=== PATIENT | female | born 2000 | race African-American/Black ===

== ENCOUNTER 2022-06-23 00:57 | Emergency (ER) | payer BC, MEDICAID, SELFPAY ==
--- NOTE | ~2022-06-23 | XR_ITS ---
EXAMINATION: XR chest 1V portable 06/23/2022 01:18 INDICATION: Chest pain. . Shortness of breath. PROCEDURE: AP portable chest COMPARISON: 05/29/2005 FINDINGS: The lungs are clear. The cardiomediastinal silhouette is within normal limits. There are no pleural effusions. There is no pneumothorax suspected. IMPRESSION: 1: NO ACUTE CARDIOPULMONARY DISEASE. Reviewed, dictated and finalized at location A. MACY TECHNICIAN INSTRUCTOR
[2022-06-23 00:56] VITALS: BP 161/105; PULSE 96; RESP 17; TEMP 37; O2SAT 100
--- NOTE | 2022-06-23 01:03 | ECG_ITS ---
Measurements Intervals [place] Rate: 82 P: 51 NE: 141 QRS: 55 QRSD: 89 T: 36 QT: 354 QTc: 416 Interpretive Statements SINUS RHYTHM WITH SINUS ARRHYTHMIA NO PREVIOUS ECG AVAILABLE FOR COMPARISON Electronically Signed On 06-24-2022 11:09:43 WEBBING SUPERVISOR by Tushar Salgado M.D.
[2022-06-23 01:08] VITALS: O2SAT 99
--- NOTE | 2022-06-23 01:10 | ED.GENADULT ---
HPI - General Adult General Chief complaint: Anxiety Stated complaint: ANXIETY Time Seen by Provider: 06/23/22 01:03 History of Present Illness HPI narrative: This is a 21-year-old female who is presenting to ED with a possible panic attack. Patient was at her job earlier today when she started to have feelings of intense anxiety, shortness of breath and substernal chest pain. Patient had preeclampsia during her last and had a emergent due to that. Patient describes the pain as a substernal heaviness that is nonradiating, 10 10 in intensity and constant. She has felt this before. She says it is worse when she takes deep breaths and improves by relaxing. She denies diaphoresis vomiting or exertional component. Related Data Allergies Allergy/AdvReac Type Severity Reaction Status Date / Time No Known Allergies Allergy Verified 06/23/22 01:22 Review of Systems Review of Systems: CONSTITUTIONAL: Denies night sweats. EYES: No eye pain ENT: Denies rhinorrhea CARDIOVASCULAR: Denies palpitations RESPIRATORY: Denies hemoptysis GASTROINTESTINAL: Denies hematemesis GENITOURINARY: Denies hematuria. SKIN: Denies rash MUSCULOSKELETAL: Denies myalgia. NEUROLOGIC: Denies weakness. PSYCHIATRIC: Denies delusions Exam Narrative: APPEARANCE: Appears anxious Head: atraumatic. EYES: EOMI, NOSE: Atraumatic NECK: Trachea midline RESPIRATORY: increased rate of breathing, clear lung sounds CARDIOVASCULAR: RRR, no peripheral edema ABDOMINAL: Non-distended, nontender no guarding or rebound MUSCULOSKELETAl: No obvious deformities NEURO: Alert. Moving 4/4 extremities SKIN:: Warm, dry. Normal color PSYCHIATRIC: Normal affect Course Vital Signs Vital signs: Vital Signs Temperature 98.6 F 06/23/22 00:56 Pulse Rate 96 06/23/22 00:56 Respiratory Rate 17 06/23/22 00:56 Blood Pressure 161/105 H 06/23/22 00:56 Pulse Oximetry 100 06/23/22 00:56 Oxygen Delivery Room Air 06/23/22 00:56 Temperature 98.6 F 06/23/22 00:56 Pulse Rate 96 06/23/22 00:56 Respiratory Rate 17 06/23/22 00:56 Blood Pressure 161/105 H 06/23/22 00:56 Pulse Oximetry 99 06/23/22 01:08 Oxygen Delivery Room Air 06/23/22 01:08 Medical Decision Making MDM Narrative Medical decision making narrative: this is a 21-year-old female who is 2 months presenting to the ED with chest pain. Differential includes anxiety, coronary dissection, cardiomyopathy. After the patient's workup has been ordered her father showed up and said that she has been having similar events almost daily since her delivery Two months ago. That makes this far more likely to be anxiety versus a more serious complication of . Chest x-ray shows no acute cardiopulmonary process. EKG interpretation: Rhythm [sinus], Rate82, [place] -[normal], [place] -[normal], QRS [narrow], QTC [normal], T waves -[negative for concerning inversions], ST Segments - [Negative for concerning elevations] Final interpretations: [Normal Sinus Rhythm] lab work was significant for potassium of 3.0. This will be repleted. Patient's troponin was negative. As she has been having these events daily I will not repeat that. Her D-dimer was also negative. Patient be discharged home and given a referral to a primary care physician for further management of her anxiety. Vital Signs Vital Signs: Vital Signs Temperature 98.6 F 06/23/22 00:56 Pulse Rate 96 06/23/22 00:56 Respiratory Rate 17 06/23/22 00:56 Blood Pressure 161/105 H 06/23/22 00:56 Pulse Oximetry 100 06/23/22 00:56 Oxygen Delivery Room Air 06/23/22 00:56 Temperature 98.6 F 06/23/22 00:56 Pulse Rate 96 06/23/22 00:56 Respiratory Rate 17 06/23/22 00:56 Blood Pressure 161/105 H 06/23/22 00:56 Pulse Oximetry 99 06/23/22 01:08 Oxygen Delivery Room Air 06/23/22 01:08 Discharge Plan Discharge Clini
[2022-06-23 01:16] LABS: Basophils Percent Auto 0.5 % (0.2-1.2); Eosinophils Absolute Auto 0.1 K/mm3 (0-0.3); Hematocrit 40.2 % (37.0-47.0); Hemoglobin 13.2 g/dL (12.0-15.0); Immature Granulocyte Absolute 0.01 K/mm3 (0.00-0.031); Immature Granulocyte Percent A 0.1 % (0-0.5); Lymphocytes Absolute Auto 3.18 K/mm3 (0.9-3.2); Lymphocytes Percent Auto 37.9 % (18.3-44.2); Mean Corpuscular HGB Conc 32.8 g/dl (32-36); Mean Corpuscular Hemoglobin 28.5 pg (26-34); Mean Corpuscular Volume 86.8 fl (80-100); Mean Platelet Volume 10.7 fl (7.4-10.4); Monocytes Absolute Auto 0.6 K/mm3 (0.1-0.6); Monocytes Percent Auto 7.5 % (2.6-8.5); Neutrophils Absolute Auto 4.4 K/mm3 (1.3-6.7); Platelet Count Result 328 k/mm3 (150-375); Red Blood Count 4.63 M/mm3 (4.2-5.4); White Blood Count 8.4 K/mm3 (4.5-10.0)
[2022-06-23] MEDS: SODIUM CHLORIDE 0.9% IV 1,000 ML 999 ML IV CONT (01:16)
[2022-06-23 01:27] LABS: Glucose Point of Care 116 mg/dl (65-105)
[2022-06-23 01:29] LABS: Alanine Aminotransferase 16 U/L (6-35); Albumin Level 4.8 g/dL (3.7-5.6); Alkaline Phosphatase 114 U/L (45-116); Anion Gap 11 mmol/L (8-16); Aspartate Amino Transferase 28 U/L (14-36); Bilirubin,Total 0.4 mg/dL (0.2-1.3); Blood Urea Nitrogen 9 mg/dL (8-21); Calcium 9.4 mg/dL (8.9-10.7); Carbon Dioxide 21 mmol/L (22-30); Chloride 110 mmol/L (98-107); Estimated CRCL calculation 138 ml/min; Estimated Glomerular Filt Rate > 60; Glucose 118 mg/dL (65-110); Lipase 144 U/L (23-300); Magnesium 1.9 mg/dL (1.6-2.3); Potassium 3.1 mmol/L (3.4-5.0); Sodium 142 mmol/L (134-143)
[2022-06-23 01:30] LABS: Appearance Urine Clear (Clear); Bilirubin Urine Negative (Negative); Blood Urine Negative (Negative); Color Urine Yellow (Yellow); Glucose Urine UA Negative (Negative); Ketones Urine Negative (Negative); Leukocyte Esterase Ur Negative LEU/UL (Negative); Nitrate Urine Negative (Negative); Protein Urine Negative (Negative)
[2022-06-23 01:33] LABS: Add Urine Microscopic? NO
[2022-06-23 01:34] LABS: INR 1.1; Prothrombin Time 13.3 Seconds (11.1-14.7)
[2022-06-23 01:35] LABS: Partial Thromboplastin Time 33.9 SECONDS (22.3-36.8)
[2022-06-23 01:38] LABS: D Dimer 0.42 ug/mL (<0.48)
[2022-06-23 01:40] LABS: NT Pro B Type Natriuretic Pept 54 pg/mL (5-100); Troponin I < 0.012 ng/mL (0.000-0.034)
[2022-06-23 01:55] LABS: Influenza A QL RT-PCR Negative (Negative); Influenza B QL RT-PCR Negative (Negative); SARS-CoV-2 RNA PCR Negative
[2022-06-23] MEDS: POTASSIUM CHLORIDE 20 MEQ TABLET 40 MEQ PO (02:15)
[2022-06-23 02:29] LABS: Thyroid Stimulating Hormone Reflex 0.902 uIU/mL (0.465-4.68)
== END 2022-06-23 02:21 | disposition home or self-care (01) ==
PROVIDERS: Emergency Provider Emergency Medicine; PCP Family Medicine
DX: F41.9 Anxiety disorder, unspecified (principal)
CPT/HCPCS: 36415; 71045; 80053; 81003; 81025; 82948; 83690; 83735; 83880; 84443; 84484; 85025; 85380; 85610; 85730; 87636; 93005; 96360; 99284; A9270; J7030

== ENCOUNTER 2022-10-09 02:28 | Emergency (ER) | payer MEDICAID, SELFPAY ==
[2022-10-09 02:31] VITALS: BP 147/89; PULSE 92; RESP 22; TEMP 36.8; O2SAT 99
--- NOTE | 2022-10-09 04:18 | PC.NURSE ---
patient observed leaving
== END 2022-10-09 04:18 | disposition left against medical advice (07) ==
PROVIDERS: PCP Family Medicine
DX: F41.9 Anxiety disorder, unspecified (principal)
CPT/HCPCS: 99199

== ENCOUNTER 2022-11-18 19:14 | Emergency (ER) | payer BC, OTHER, SELFPAY ==
--- NOTE | ~2022-11-18 | XR_ITS ---
EXAMINATION: XR chest 1V portable Exam Date/Time: 11/18/2022 22:35 CDT HISTORY: chest pain, dyspnea, anxiety Comparison: 06/23/2022. RESULT: Lines, tubes, and devices: None. Lungs and pleura: Clear. Cardiomediastinal silhouette: Stable. Other: No acute osseous or upper abdominal finding. IMPRESSION: No acute cardiopulmonary process. Reviewed, dictated and finalized at location K.
--- NOTE | 2022-11-18 19:18 | ECG_ITS ---
Measurements Intervals [place] Rate: 85 P: 68 [place]: 148 QRS: 65 QRSD: 89 T: 45 QT: 343 QTc: 410 Interpretive Statements SINUS RHYTHM WITH SINUS ARRHYTHMIA NORMAL ECG COMPARED TO ECG 06/23/2022 01:07:56 NO SIGNIFICANT CHANGES Electronically Signed On 11-18-2022 21:09:53 CDT by Luis Jones D.O.
[2022-11-18 19:25] VITALS: BP 140/99; PULSE 95; RESP 16; TEMP 36.5; O2SAT 100
[2022-11-18 22:32] VITALS: PULSE 72; RESP 11; O2SAT 98
--- NOTE | 2022-11-18 22:39 | ED.ANXIETY ---
HPI - Anxiety General Chief Complaint: Anxiety <Dwayne Mireles PA-C - Last Filed: 11/19/22 02:51> Stated Complaint: chest pain, sob, hx of anxiety <JEREMIAH Franco Last Filed: 11/19/22 02:51> Time Seen by Provider: 11/18/22 22:29 <JEREMIAH Franco Last Filed: 11/19/22 02:51> Source: patient <JEREMIAH Franco Last Filed: 11/19/22 02:51> Mode of arrival: ambulatory <JEREMIAH Franco Last Filed: 11/19/22 02:51> Limitations: no limitations <JEREMIAH Franco Last Filed: 11/19/22 02:51> History of Present Illness HPI narrative: This is a 21-year-old female who presents to the ED with chief complaint of anxiety x1 day. Patient states she had a panic attack today that lasted several hours rather than normal 30 minutes so she came to the ER for further evaluation. Reports chest pain shortness of breath, however the symptoms are starting to resolve. States she still feels on edge. She is working with her primary care physician to adjust her anxiety medications currently. Denies any further symptoms. <JEREMIAH Franco Last Filed: 11/19/22 02:51> Related Data Allergies/Adverse Reactions: Allergies Allergy/AdvReac Type Severity Reaction Status Date / Time No Known Allergies Allergy Verified 11/18/22 19:15 <JEREMIAH Franco Last Filed: 11/19/22 02:51> Review of Systems Review of Systems: CONSTITUTIONAL: Denies fever, chills, or sweats. EYES: Denies visual changes, redness, or discharge. ENT: Denies rhinorrhea, congestion, sore throat, or otalgia. CARDIOVASCULAR: See HPI RESPIRATORY: See HPI GASTROINTESTINAL: Denies abdominal pain, nausea, vomiting, or diarrhea. GENITOURINARY: Denies dysuria or hematuria. SKIN: Denies rash or itching. MUSCULOSKELETAL: Denies back pain, joint pain, or myalgia. NEUROLOGIC: Denies headache, numbness, dizziness, or weakness. PSYCHIATRIC: See HPI <Dwayne Mireles PA-C - Last Filed: 11/19/22 02:51> Exam Narrative: GENERAL: Well-appearing, well-nourished. Appears anxious HEAD: Normocephalic, atraumatic. EYES: PERRLA and EOMI. ENT: Nares clear, no rhinorrhea or epistaxis. Mucous membranes moist. Oropharynx without tonsillar hypertrophy exudate or other lesions. NECK: Supple. No adenopathy or masses. CHEST: No respiratory distress. Clear to auscultation. No wheezes rales or rhonchi HEART: Regular rate and rhythm. No murmur heard. Normal peripheral pulses. ABDOMEN: Soft, nontender, nondistended, normal active bowel sounds. EXTREMITIES: Normal range of motion. No edema. SKIN: Warm, dry, no rash. NEURO: Alert and oriented x3. No focal deficits. PSYCH: Anxious mood. Appropriate affect. Conversational and cooperative. No SI or HI. <Dwayne Mireles PA-C - Last Filed: 11/19/22 02:51> Course TILE DITCHER/PA Physician Supervision This is a was performed by both a physician and an APC. I performed all aspects of the MDM as documented w/ the following additions: 21-year-old with a history of anxiety and panic disorder presenting with an anxiety attack. Symptoms were improving by time she was evaluated in the ED. Given 0.5 of Ativan and discharged with primary care follow-up. All questions answered. Patient in agreement w/ disposition. <Drake Choi MD - Last Filed: 11/23/22 07:24> Vital Signs Vital signs: Vital Signs Temperature 97.7 F 11/18/22 19:25 Pulse Rate 95 11/18/22 19:25 Respiratory Rate 16 11/18/22 19:25 Blood Pressure 140/99 H 11/18/22 19:25 Pulse Oximetry 100 11/18/22 19:25 Oxygen Delivery Room Air 11/18/22 19:25 Temperature 98 F 11/18/22 23:49 Pulse Rate 70 11/18/22 23:49 Respiratory Rate 18 11/18/22 23:49 Blood Pressure 123/74 11/18/22 23:49 Pulse Oximetry 99 11/18/22 23:49 Oxygen Delivery Room Air 11/18/22 19:25 <Dwayne Mireles PA-C - Last Filed: 11/19/22 02:51> Vital Signs Temperature 97.7 F 11/18/22 19:25 Pulse Rate 95
[2022-11-18] MEDS: LORazepam (*CRX) 0.5 MG TABLET PO (22:53)
[2022-11-18 23:49] VITALS: BP 123/74; PULSE 70; RESP 18; TEMP 36.6; O2SAT 99
== END 2022-11-18 23:50 | disposition home or self-care (01) ==
PROVIDERS: Emergency Provider Physician Assistant; PCP Family Medicine
DX: F41.9 Anxiety disorder, unspecified (principal)
CPT/HCPCS: 71045; 93005; 99283; A9270

== ENCOUNTER 2022-12-29 02:56 | Emergency (ER) | payer BC, OTHER, SELFPAY ==
--- NOTE | ~2022-12-29 | XR_ITS ---
EXAMINATION: XR chest 2V 12/29/2022 03:25 INDICATION: Chest pain PROCEDURE: 2 view chest COMPARISON: 11/18/2022 FINDINGS: The lungs are clear. The cardiomediastinal silhouette is within normal limits. There are no pleural effusions. There is no pneumothorax suspected. IMPRESSION: 1: NO ACUTE CARDIOPULMONARY DISEASE. Reviewed, dictated and finalized at location A.
[2022-12-29 02:56] VITALS: BP 129/96; PULSE 103; RESP 15; TEMP 36.6; O2SAT 100
--- NOTE | 2022-12-29 03:04 | ECG_ITS ---
Measurements Intervals [place] Rate: 89 P: 52 [place]: 157 QRS: 60 QRSD: 89 T: 30 QT: 371 QTc: 454 Interpretive Statements SINUS RHYTHM COMPARED TO ECG 11/18/2022 19:23:08 NO SIGNIFICANT CHANGES Electronically Signed On 12-29-2022 8:42:19 CDT by Desiree Elise M.D.
[2022-12-29] MEDS: hydrOXYzine HCL 25 MG TABLET PO (03:11)
[2022-12-29 03:12] VITALS: BP 129/96; PULSE 94; RESP 13; O2SAT 100
--- NOTE | 2022-12-29 03:21 | ED.GENADULT ---
HPI - General Adult General Chief complaint: Anxiety Stated complaint: anxiety Time Seen by Provider: 12/29/22 03:00 History of Present Illness HPI narrative: Patient a 22-year-old female who presents emergency department with chief complaint of panic attack. The patient reports she has history of anxiety and is currently on anxiety medications at home. The patient reports this evening she was sitting down and felt as though the world was caving in on her the patient reports she had tightness in her chest and reports that she felt short of breath. The patient reports this feels similar to whenever she had panic attacks before in the past. Related Data Allergies Allergy/AdvReac Type Severity Reaction Status Date / Time No Known Allergies Allergy Verified 12/29/22 03:02 Review of Systems Review of Systems: A 10 system review of systems was completed on the patient and is negative except for what is stated in the HPI. Nursing and ancillary documentation was reviewed. Exam Narrative: GENERAL: Well-appearing, well-nourished, and in no acute distress. HEAD: Normocephalic, atraumatic. EYES: PERRLA and EOMI. ENT: Nares clear, no rhinorrhea or epistaxis. Mucous membranes moist. NECK: Supple. CHEST: Clear to auscultation. No respiratory distress. HEART: Regular rate and rhythm. No murmur heard. Normal peripheral pulses. ABDOMEN: Soft, nontender, nondistended, normal active bowel sounds. EXTREMITIES: Normal range of motion. No edema. SKIN: Warm, dry, no rash. NEURO: No focal deficits. Alert and oriented x3. PSYCH: Normal mood and affect. Course Vital Signs Vital signs: Vital Signs Temperature 36.6 C 12/29/22 02:56 Pulse Rate 103 H 12/29/22 02:56 Respiratory Rate 15 12/29/22 02:56 Blood Pressure 129/96 H 12/29/22 02:56 Pulse Oximetry 100 12/29/22 02:56 Oxygen Delivery Room Air 12/29/22 02:56 Temperature 36.6 C 12/29/22 02:56 Pulse Rate 94 12/29/22 03:12 Respiratory Rate 13 12/29/22 03:12 Blood Pressure 129/96 H 12/29/22 03:12 Pulse Oximetry 100 12/29/22 03:12 Oxygen Delivery Room Air 12/29/22 02:56 Medical Decision Making MDM Narrative Medical decision making narrative: Differential diagnosis includes ACS, dysrhythmia, pneumothorax Chest x-ray showed no focal infiltrate no widened mediastinum no pneumothorax EKG was sinus rhythm rate of [address] elevation or ST depression no changes since November 18, 2022 Vital Signs Vital Signs: Vital Signs Temperature 36.6 C 12/29/22 02:56 Pulse Rate 103 H 12/29/22 02:56 Respiratory Rate 15 12/29/22 02:56 Blood Pressure 129/96 H 12/29/22 02:56 Pulse Oximetry 100 12/29/22 02:56 Oxygen Delivery Room Air 12/29/22 02:56 Temperature 36.6 C 12/29/22 02:56 Pulse Rate 94 12/29/22 03:12 Respiratory Rate 13 12/29/22 03:12 Blood Pressure 129/96 H 12/29/22 03:12 Pulse Oximetry 100 12/29/22 03:12 Oxygen Delivery Room Air 12/29/22 02:56 Discharge Plan Discharge Clinical Impression: Acute anxiety Patient Disposition: Home, Self-Care Condition: Stable Instructions: Antibiotic Form, Anxiety (ED) Prescriptions: New hydroxyzine HCl 25 mg tablet 25 mg PO TID PRN (Reason: anxiety) Qty: 30 0RF Follow-up/Referrals: Danny,MD Brenna [Primary Care Provider] -
[2022-12-29 04:27] VITALS: BP 123/77; PULSE 91; RESP 18; O2SAT 100
[2022-12-29] MEDS: IBUPROFEN 400 MG TABLET 800 MG PO (04:28)
== END 2022-12-29 04:32 | disposition home or self-care (01) ==
PROVIDERS: Emergency Provider Emergency Medicine; PCP Family Medicine
DX: F41.9 Anxiety disorder, unspecified (principal)
CPT/HCPCS: 71046; 93005; 99283; A9270

== ENCOUNTER 2023-03-28 07:41 | Emergency (ER) | payer BC, OTHER, SELFPAY ==
[2023-03-28] VITALS (8 sets, daily range): BP systolic 123–148; BP diastolic 8–91; PULSE 64–78; RESP 16–22; TEMP 36.5; O2SAT 100
--- NOTE | ~2023-03-28 | XR_ITS ---
EXAMINATION: XR chest 2V DATE: 03/28/2023 08:14 INDICATION: Chest pain TECHNIQUE: Frontal and lateral views of the chest are obtained COMPARISON: 12/29/2022 FINDINGS: The lungs are free of acute opacities. No pleural effusion or pneumothorax. The cardiomedia stinal silhouette is normal. The visualized bones and soft tissues are unremarkable. IMPRESSION: 1. No acute cardiopulmonary abnormality. Reviewed, dictated and finalized at location B.
--- NOTE | 2023-03-28 07:45 | ECG_ITS ---
Measurements Intervals [place] Rate: 69 P: 25 [place]: 149 QRS: 42 QRSD: 89 T: 30 QT: 374 QTc: 403 Interpretive Statements SINUS RHYTHM WITH SINUS ARRHYTHMIA NORMAL ECG COMPARED TO ECG 12/29/2022 03:16:04 SINUS ARRHYTHMIA NOW PRESENT Electronically Signed On 03-28-2023 7:55:06 CDT by Luis Jones D.O.
--- NOTE | 2023-03-28 08:04 | ED.CHESTPAIN ---
HPI - Chest Pain General Chief Complaint: Chest Pain Stated Complaint: CP, SOB Time Seen by Provider: 03/28/23 07:42 Source: patient, EMS and RN notes reviewed Mode of arrival: EMS Limitations: no limitations History of Present Illness HPI narrative: This is a 22 year old female with history of anxiety who presents for evaluation of shortness of breath and chest pain. EMS reports patient woke up at 4 am with shortness of breath and sharp midsternal chest pain. This pain radiates to her midback. She took hydroxyzine 25 mg at 5 am for presumed panic attack as cause of her symptoms. EMS gave patient aspirin 324 mg PO. She denies shortness of breath but she still reports chest pain. She denies any other symptoms. She is in acute distress but she reports her pain is 10/10. Her LMP 02/26/23. She denies taking OCP Denies recent travel. Related Data Allergies Allergy/AdvReac Type Severity Reaction Status Date / Time No Known Allergies Allergy Verified 12/29/22 03:02 Review of Systems Constitutional: Constitutional: Denies weakness Cardiovascular: Cardiovascular: Reports chest pain, Denies syncope, Denies rapid heart rate, Denies irregular heart rhythm, Denies leg edema and Reports dyspnea Respiratory: Respiratory: Denies chest congestion, Denies hemoptysis, Denies excessive phlegm production and Denies dyspnea Gastrointestinal: Gastrointestinal: Denies abdominal pain, Denies hematochezia, Denies diarrhea and Denies vomiting Genitourinary: Genitourinary: Denies hematuria and Denies dysuria Musculoskeletal: Musculoskeletal: Denies joint swelling, Denies loss of height and Denies muscle weakness Neurologic: Denies syncope, Denies focal weakness and Denies weakness Psychiatric: Psychiatric: Reports anxiety PMFSH Past Medical History Medical History (Updated 03/28/23 @ 09:17 by Marley Tirado MD) Anxiety Surgical History Surgical History (Updated 03/28/23 @ 08:05 by Marley Tirado MD) H/O section Social History Social History (Updated 03/28/23 @ 08:05 by Marley Tirado MD) Smoking status: Never smoker Exam Const: General: no acute distress and alert Nutritional Appearance: well nourished HENMT: Head: normal to inspection Face and sinus: normal facial exam Eyes: EOM: EOMs intact bilaterally Neck: Neck: normal visual inspection Chest: Chest palpation & inspection: normal inspection of the chest Resp: Effort & Inspection: normal respiratory effort Auscultation: clear to auscultation bilaterally Cardio: Rate: regular rate Rhythm: regular rhythm Heart sounds: no murmurs GI: GI Palp: Yes Soft to palpation, No Tenderness to palpation present (GI), No Guarding due to palpation present (GI) and No Rigid due to palpation Auscultation: normal bowel sounds Skin: General skin exam: normal color Rashes: no rashes Neuro: General: patient oriented x3, moves all extremities and CN's II-XI intact bilaterally Extrem: General: normal to inspection Psych: Mental Status: mental status grossly normal Affect: normal affect Attitude: cooperative Course Reevaluation(s) Reevaluation #1: Patient states she feels better. She reports her chest pain is resolved. I discussed labs and EKG unremarkable. symptoms started at 5 hours ago and troponin negative. PAtient is asking to be discharged. pain seemed more pleuritic . She is low risk for PE and d dimer negative. She will be discharged home. Date: 03/28/23 Time: 09:15 Vital Signs Vital signs: Vital Signs Temperature 97.7 F 03/28/23 07:49 Pulse Rate 75 03/28/23 07:49 Respiratory Rate 18 03/28/23 07:49 Blood Pressure 148/79 H 03/28/23 07:49 Pulse Oximetry 100 03/28/23 07:49 Oxygen Delivery Room Air 03/28/23 07:49 Temperature 97.7 F 03/28/23 07:49 Pulse Rate 72 03/28/23 09:16 Respiratory Rate 17 03/28/23 09:16 Blood Pressure 134/8 L 03/28/23 09:29 Pulse Oximetry 100 03/28/23 09:01 Oxyg
[2023-03-28 08:10] LABS: Basophils Percent Auto 0.3 % (0.2-1.2); Eosinophils Absolute Auto 0.1 K/mm3 (0-0.3); Eosinophils Percent Auto 0.9 % (0-4.4); Hematocrit 37.5 % (37.0-47.0); Hemoglobin 12.4 g/dL (12.0-15.0); Immature Granulocyte Absolute 0.02 K/mm3 (0.00-0.031); Immature Granulocyte Percent A 0.2 % (0-0.5); Lymphocytes Absolute Auto 2.55 K/mm3 (0.9-3.2); Lymphocytes Percent Auto 26.2 % (18.3-44.2); Mean Corpuscular HGB Conc 33.1 g/dl (32-36); Mean Corpuscular Volume 90.8 fl (80-100); Mean Platelet Volume 11.2 fl (7.4-10.4); Monocytes Absolute Auto 0.8 K/mm3 (0.1-0.6); Monocytes Percent Auto 7.9 % (2.6-8.5); Neutrophils Absolute Auto 6.3 K/mm3 (1.3-6.7); Neutrophils Percent Auto 64.5 % (45.5-73.1); Platelet Count Result 265 k/mm3 (150-375); Red Blood Count 4.13 M/mm3 (4.2-5.4); Red Cell Distribution Width 12.1 % (11.5-14.5); White Blood Count 9.7 K/mm3 (4.5-10.0)
[2023-03-28 08:20] LABS: Alanine Aminotransferase 18 U/L (6-35); Albumin Level 4.3 g/dL (3.5-5.1); Alkaline Phosphatase 78 U/L (38-126); Anion Gap 10 mmol/L (8-16); Aspartate Amino Transferase 20 U/L (14-36); Bilirubin,Total 0.6 mg/dL (0.2-1.3); Blood Urea Nitrogen 13 mg/dL (7-17); Calcium 9.1 mg/dL (8.4-10.2); Carbon Dioxide 23 mmol/L (22-30); Chloride 106 mmol/L (98-107); Estimated Glomerular Filt Rate > 60; Glucose 97 mg/dL (65-110); Lipase 70 U/L (23-300); Potassium 3.3 mmol/L (3.4-5.0); Sodium 139 mmol/L (137-145)
[2023-03-28 08:21] LABS: Partial Thromboplastin Time 33.9 SECONDS (22.3-36.8); Prothrombin Time 13.3 Seconds (11.1-14.7)
[2023-03-28 08:25] LABS: D Dimer 0.22 ug/mL (<0.48)
[2023-03-28 08:30] LABS: Troponin I < 0.012 ng/mL (0.000-0.034)
[2023-03-28] MEDS: KETOROLAC 15 MG/ML VIAL (*BKC) IV PUSH (08:56)
== END 2023-03-28 09:30 | disposition home or self-care (01) ==
PROVIDERS: Emergency Provider General Practice; PCP Family Medicine
DX: R07.89 Other chest pain (principal)
CPT/HCPCS: 36415; 71046; 80053; 83690; 84484; 85025; 85380; 85610; 85730; 93005; 96374; 99284; J1885

== ENCOUNTER 2023-04-28 10:25 | Emergency (ER) | payer OTHER, SELFPAY ==
[2023-04-28 10:30] VITALS: BP 135/83; PULSE 102; RESP 18; TEMP 36.1; O2SAT 99
--- NOTE | 2023-04-28 11:02 | ED.SKABFB ---
HPI - Skin/Abscess/Foreign Bdy General Chief complaint: Skin/Abscess/Foreign Body Stated complaint: boil Time Seen by Provider: 04/28/23 10:42 Source: patient Mode of arrival: ambulatory Limitations: no limitations History of Present Illness HPI narrative: This is a 22 year old female that presents to the ER for an area of swelling and pain in the vagina. Noted since yesterday. No previous history of same. Denies fevers or drainage. Related Data Allergies Allergy/AdvReac Type Severity Reaction Status Date / Time No Known Allergies Allergy Verified 04/28/23 10:32 Review of Systems Review of Systems: CONSTITUTIONAL: Denies fever GENITOURINARY: Denies dysuria SKIN: Reports swelling All systems reviewed & are unremarkable except as noted in HPI and below PMFSH Past Medical History Medical History Anxiety Surgical History Surgical History H/O section Social History Social History Smoking status: Never smoker Exam Narrative: GENERAL: Well-appearing, well-nourished, and in no acute distress. HEAD: Normocephalic, atraumatic. EYES: EOMI. CHEST: Clear to auscultation. No respiratory distress. No wheezes rales or rhonchi HEART: Regular rate and rhythm. No murmur heard. Normal peripheral pulses. EXTREMITIES: Normal range of motion. No edema. SKIN: Warm, dry, no rash. NEURO: No focal deficits. Alert and oriented x3. PSYCH: Normal mood and affect FEMALE GENITAL: Large Bartholin cyst noted in the left side of the vagina Course Course Emergency Course: Dr. Matute performed I&D of Bartholin cyst Consultations Consultation #1: Spoke with Dr. Matute about patient and workup who will come to the ED and evaluate patient Date: 04/28/23 Vital Signs Vital signs: Vital Signs Temperature 97 F L 04/28/23 10:30 Pulse Rate 102 H 04/28/23 10:30 Respiratory Rate 18 04/28/23 10:30 Blood Pressure 135/83 04/28/23 10:30 Pulse Oximetry 99 04/28/23 10:30 Temperature 97 F L 04/28/23 10:30 Pulse Rate 102 H 04/28/23 10:30 Respiratory Rate 18 04/28/23 10:30 Blood Pressure 135/83 04/28/23 10:30 Pulse Oximetry 99 04/28/23 10:30 MDM - Skin/Abscess/Foreign Bdy MDM Narrative Medical decision making narrative: Patient presents to the emergency department for a Bartholin cyst and she is afebrile and nontoxic-appearing. Very large cyst noted on exam. Patient is quite uncomfortable. Spoke with gynecology, Dr. Matute, who came and evaluated patient and drained cyst. Patient will be started on Bactrim and follow-up in clinic in 1 week. She is currently on her menstrual cycle. She was given warnings to return to the ER Differential Diagnosis Differential diagnosis: Likely abscess of skin or subcutaneous tissue and cellulitis Critical Care Time Critical Care Time Critical Care Time: No Discharge Plan Discharge Clinical Impression: Bartholin cyst Patient Disposition: Home, Self-Care Condition: Stable Instructions: Antibiotic Form, Bartholin Cyst (ED) Additional Instructions: Return to the emergency department if you experience fever, worsening redness or swelling of your wound, or any other symptoms that are concerning to you. Take oral antibiotic as prescribed. Tylenol or Ibuprofen as needed for pain Follow-up with gynecology for further care Prescriptions: New sulfamethoxazole-trimethoprim [Bactrim DS] 800-160 mg tablet 1 tablet PO Q12H Qty: 14 0RF fluconazole [Diflucan] 200 mg tablet 200 mg PO Q72H PRN (Reason: vaginal itching) Qty: 2 0RF ibuprofen 800 mg tablet 800 mg PO TID Qty: 30 0RF No Action hydroxyzine HCl 25 mg tablet 25 mg PO TID PRN (Reason: anxiety) Qty: 30 0RF Follow-up/Referrals: Mabel Matute MD [Physician] - 1 Week Danny,MD Brenna [
[2023-04-28] MEDS: IBUPROFEN 600 MG TABLET PO (11:47)
--- NOTE | 2023-04-28 12:47 | WPDCN ---
Assessment and Plan Assessment and plan (1) Bartholin's gland abscess: Code(s): N75.1 - Abscess of Bartholin's gland Status: Acute Plan - Pt agrees to I&D for large Bartholin's gland abscess - will send home on bactrim DS BID x 7 days; diflucan PRN if antibiotics cause yeast infection - Will f/u in office on 05/06/23 @ 1530 HPI Data of Consult Date/Time: 04/28/23 12:47 Primary Care Provider: Brenna Delgado, Consult Narrative Narrative: Amy Garcia is a 22 yo P1001, LMP 04/27/23 who presents to the ER for large left sided vaginal abscess. She reports that she started having pain on 04/26/23. She denies any vaginal discharge. She started her menses the following daily. It is painful to sit/walk. She denies fever, chills. She is only sexually active w/ her boyfriend. She does not have an OBGYN in the area; delivered her son in [place]. [facility] Past Medical History Medical History Anxiety Surgical History Surgical History H/O section Social History Social History Smoking status: Never smoker Meds Home Medications and Allergies Home Medications Medication Instructions Recorded Confirmed Type hydroxyzine HCl 25 mg tablet 25 mg PO TID PRN anxiety #30 tabs 12/29/22 Rx fluconazole 200 mg tablet 200 mg PO Q72H PRN vaginal itching 04/28/23 Rx (Diflucan) #2 tabs ibuprofen 800 mg tablet 800 mg PO TID #30 tabs 04/28/23 Rx sulfamethoxazole 800 1 tablet PO Q12H #14 tabs 04/28/23 Rx mg-trimethoprim 160 mg tablet (Bactrim DS) Allergies Allergy/AdvReac Type Severity Reaction Status Date / Time No Known Allergies Allergy Verified 04/28/23 10:32 Vital Signs Vital Signs - 24 hr 04/28/23 10:30 Temperature 97 F L Pulse Rate 102 H Respiratory Rate 18 Blood Pressure 135/83 Pulse Oximetry 99 Exam Const: General: cooperative, healthy appearing, no acute distress and uncomfortable Resp: Effort & Inspection: normal respiratory effort GI: Inspection: normal to inspection GI Palp: No abdominal tenderness : External Female Exam: externally tender, external swelling and lesion (left sided bartholin's abscess (4cm)) Speculum Exam - Vagina: other (tampon in place) [facility] Consult Billing Observation Consult [id number] New Pt Lvl 3 Detail
--- NOTE | 2023-04-28 12:52 | W.PM.PROC2 ---
Procedure Note - Detailed Date of Procedure 04/28/23 Pre-op Diagnosis Left Bartholin's gland abscess Post-op Diagnosis Same Procedure Performed Left bartholin's gland abscess I&D in the ER Surgeon Mabel Matute MD Anesthesia Local (8cc of 1% lidocaine w/o epi) Findings 4cm left Bartholin's gland abscess Description of Procedure Amy was consented for I&D. The left Bartholin's gland abscess was cleaned with Betadine near the hymen. It was locally anesthetized with lidocaine. Once adequate anesthesia was noted, stab incision using an 11 blade scalpel was made. Significant amount of purulent discharge was noted. Wound culture was obtained. Once the abscess was drained, a Word catheter was attempted to be placed but only went into the labia; would not go into the gland due to inflammation. Due to patient discomfort, the procedure was aborted. The patient was cleaned and pad with mesh panties provided. Patient will be sent home on with antibiotics. Pelvic rest for the next week instructed (nothing in the vagina). She will follow up in clinic within 1 week. ER precautions provided. Estimated Blood Loss 30 Complications No immediate complications Condition Stable Disposition Other (Home) [facility] Billing Surgery - Charge Forward: Surgery Billing
[2023-04-28 13:19] VITALS: BP 132/78; PULSE 98; RESP 18; O2SAT 100
== END 2023-04-28 13:22 | disposition home or self-care (01) ==
PROVIDERS: Emergency Provider Physician Assistant; PCP Family Medicine
DX: N75.0 Cyst of Bartholin's gland (principal); F41.9 Anxiety disorder, unspecified
CPT/HCPCS: 56420; 87070; 87075; 87076; 87185; 87205; 99283; A9270

== ENCOUNTER 2023-05-02 11:43 | Emergency (ER) | payer OTHER, SELFPAY ==
[2023-05-02 12:05] VITALS: BP 131/76; PULSE 100; RESP 16; TEMP 37.1; O2SAT 99
[2023-05-02 14:00] VITALS: BP 133/79; PULSE 97; RESP 15; O2SAT 100
--- NOTE | 2023-05-02 14:38 | ED.SKABFB ---
HPI - Skin/Abscess/Foreign Bdy General Chief complaint: Skin/Abscess/Foreign Body Stated complaint: cyst in private department coordinator Seen by Provider: 05/02/23 14:26 Source: patient Mode of arrival: ambulatory Limitations: no limitations History of Present Illness HPI narrative: 22 years old -[place] female came to the emergency room with recurrent of Bartholin cyst left side. Patient came to our emergency room 5 days ago and had the Bartholin cyst incision and drainage at that time, no Word catheter was placed at that time, patient was started on Bactrim which she got it yesterday. Patient reports that the Bartholin cyst is swollen again exactly the same size as 5 days ago. Unable to walk, uncomfortable. Related Data Allergies Allergy/AdvReac Type Severity Reaction Status Date / Time No Known Allergies Allergy Verified 04/28/23 10:32 Review of Systems Review of Systems: All systems reviewed & are unremarkable except as noted in HPI and below PMFSH Past Medical History Medical History Anxiety Surgical History Surgical History H/O section Social History Social History Smoking status: Never smoker Exam Narrative: General appearance: Well-developed, well-nourished Skin: Normal color Chest and respiratory: Airway patent, no respiratory distress, no accessory muscle use Heart: Regular rate/rhythm Abdomen: Soft, nontender, no organomegaly, quiet bowel sounds Neurologic: Alert and oriented ?3, HE[employer] MANAGER is normal as tested, no gross motor deficit : Other: Abscess-like inner side of labia minora, 5 x 3 cm, diffusely tender, no discharge Course Vital Signs Vital signs: Vital Signs Temperature 37.1 C 05/02/23 12:05 Pulse Rate 100 05/02/23 12:05 Respiratory Rate 16 05/02/23 12:05 Blood Pressure 131/76 05/02/23 12:05 Pulse Oximetry 99 05/02/23 12:05 Oxygen Delivery Room Air 05/02/23 12:05 Temperature 37.1 C 05/02/23 12:05 Pulse Rate 64 05/02/23 16:22 Respiratory Rate 15 05/02/23 16:22 Blood Pressure 117/79 05/02/23 16:22 Pulse Oximetry 100 05/02/23 16:22 Oxygen Delivery Room Air 05/02/23 12:05 Procedures Abscess I/D bartholin's gland: Date of Incision: 05/02/23 Time of Incision: 16:33 Side (if applicable): left Sedation/analgesia: none Local Anesthetic: lidocaine 1% and with epi Amount of anesthesia used (mL): 3 Technique: other (30 minutes after arrival to the ED the Bartholin abscess started to leak purulent discharge all over.) Irrigation: No Packing used?: Word catheter I&D Results: Pus Complications: other (None) Abcess I&D Additional Comments: Word catheter was placed through the spontaneous opening of the abscess, inflated with 4 mL of normal saline, culture was obtained, patient tolerated the procedure well. The purulent bloody discharge is roughly 20 mL. MDM - Skin/Abscess/Foreign Bdy MDM Narrative Medical decision making narrative: Patient presents with recurrence of Bartholin cyst, no leaking on arrival to the ED, within 30 minutes to start leaking spontaneously of purulent bloody the pt was discharged to home.the pt,s condition upon discharge was fair,education was provided to the pt in reference to the final impression,discharge study results,treatment,prognosis and need for follow up . Which approximately 20 mL, while the catheter was placed and the new opening inflated with 4 mL of normal saline, patient tolerated th
[2023-05-02] MEDS: LIDO 1%/EPINEPHRINE 1:100,000 50 ML VIAL (16:13)
[2023-05-02 16:22] VITALS: BP 117/79; PULSE 64; RESP 15; O2SAT 100
== END 2023-05-02 16:23 | disposition home or self-care (01) ==
PROVIDERS: Emergency Provider Emergency Medicine; PCP Family Medicine
DX: N75.1 Abscess of Bartholin's gland (principal)
CPT/HCPCS: 56420; 99283

== ENCOUNTER 2023-05-27 22:56 | Emergency (ER) | payer OTHER, SELFPAY ==
[2023-05-27 23:10] VITALS: BP 146/86; PULSE 93; RESP 14; TEMP 36.6; O2SAT 99
--- NOTE | 2023-05-27 23:12 | ECG_ITS ---
Measurements Intervals [place] Rate: 87 P: 68 FL: 155 QRS: 70 QRSD: 89 T: 44 QT: 354 QTc: 427 Interpretive Statements SINUS RHYTHM WITH SINUS ARRHYTHMIA NORMAL ECG COMPARED TO ECG 03/28/2023 07:48:08 NO SIGNIFICANT CHANGES Electronically Signed On 05-28-2023 6:51:54 HIMS CODER by Luis Jones D.O.
--- NOTE | 2023-05-28 00:04 | PC.NURSE ---
Pt states her anxiety is better and she feels okay to go home
== END 2023-05-28 01:09 | disposition left against medical advice (07) ==
PROVIDERS: Emergency Provider Emergency Medicine; PCP Family Medicine
DX: F41.0 Panic disorder [episodic paroxysmal anxiety] (principal)
CPT/HCPCS: 93005; 99199

== ENCOUNTER 2023-05-28 10:14 | Emergency (ER) | payer OTHER, SELFPAY ==
[2023-05-28 10:38] VITALS: BP 129/76; PULSE 81; RESP 18; TEMP 36.4; O2SAT 100
--- NOTE | 2023-05-28 11:08 | ED.ANXIETY ---
HPI - Anxiety General Chief Complaint: Anxiety Stated Complaint: panic attack Time Seen by Provider: 05/28/23 10:51 History of Present Illness HPI narrative: 22-year-old female history of anxiety and mood disorder presents to the emergency room for evaluation of panic attack. Patient states that she began experiencing some anxiety around 2:00 yesterday afternoon. States her normal panic attacks last from 1 to 2 hours. Reportedly last night smoked marijuana, hoping that that would resolve her anxiety. Patient states that she takes hydroxyzine for her anxiety with no improvement of her symptoms. Denies SI or HI. Denies alcohol or recreational drug use Related Data Allergies Allergy/AdvReac Type Severity Reaction Status Date / Time No Known Allergies Allergy Verified 05/28/23 10:41 Review of Systems Review of Systems: CONSTITUTIONAL: Denies fever, chills, or sweats. EYES: Denies visual changes, redness, or discharge. ENT: Denies rhinorrhea, congestion, sore throat, or otalgia. CARDIOVASCULAR: Denies chest pain, palpitations, or edema. RESPIRATORY: Denies cough or dyspnea. GASTROINTESTINAL: Denies abdominal pain, nausea, vomiting, or diarrhea. GENITOURINARY: Denies dysuria or hematuria. SKIN: Denies rash or itching. MUSCULOSKELETAL: Denies back pain, joint pain, or myalgia. NEUROLOGIC: Denies headache, numbness, dizziness, or weakness. PSYCHIATRIC: Reports anxiety PMFSH Past Medical History Medical History (Updated 05/28/23 @ 12:12 by Johnny David APRN) Anxiety Surgical History Surgical History H/O section Social History Social History Smoking status: Never smoker Exam Narrative: GENERAL: Well-appearing, well-nourished, no physical limitations, and in no acute distress. HEAD: Normocephalic, atraumatic. EYES: Conjunctivae normal, PERRLA and EOMI. CHEST: Clear to auscultation. No respiratory distress. No wheezes rales or rhonchi. HEART: Regular rate and rhythm. No murmur heard. Normal peripheral pulses. EXTREMITIES: Normal range of motion. No edema. No clubbing or cyanosis SKIN: Warm, dry, no rash. No noted wounds NEURO: No focal deficits. Alert and oriented x3. MAEW. CN's II-XI intact bilaterally, normal gait PSYCH: Cooperative. Anxious. Rocking back and forth in bed Course Vital Signs Vital signs: Vital Signs Temperature 36.4 C 05/28/23 10:38 Pulse Rate 81 05/28/23 10:38 Respiratory Rate 18 05/28/23 10:38 Blood Pressure 129/76 05/28/23 10:38 Pulse Oximetry 100 05/28/23 10:38 Oxygen Delivery Room Air 05/28/23 10:38 Temperature 36.4 C 05/28/23 10:38 Pulse Rate 82 05/28/23 12:05 Respiratory Rate 18 05/28/23 12:05 Blood Pressure 121/84 05/28/23 12:05 Pulse Oximetry 100 05/28/23 12:05 Oxygen Delivery Room Air 05/28/23 10:38 Discharge Plan Discharge Clinical Impression: Anxiety Patient Disposition: Home, Self-Care Condition: Stable Instructions: Antibiotic Form, Anxiety (ED) Prescriptions: New lorazepam [Ativan] 1 mg tablet 1 mg PO TID PRN (Reason: anxiety) Qty: 21 0RF lorazepam [Ativan] 1 mg tablet 1 mg PO TID PRN (Reason: anxiety) Qty: 21 0RF No Action sulfamethoxazole-trimethoprim [Bactrim DS] 800-160 mg tablet 1 tablet PO Q12H Qty: 14 0RF fluconazole [Diflucan] 200 mg tablet 200 mg PO Q72H PRN (Reason: vaginal itching) Qty: 2 0RF ibuprofen 800 mg tablet 800 mg PO TID Qty: 30 0RF hydroxyzine HCl 25 mg tablet 25 mg PO TID PRN (Reason: anxiety) Qty: 30 0RF Follow-up/Referrals: Danny,MD Brenna [Primary Care Provider] - Time of Disposition: 12:10
[2023-05-28] MEDS: SODIUM CHLORIDE 0.9% IV 1,000 ML 999 ML (11:39)
[2023-05-28] MEDS: LORazepam INJ (*CRX) 2 MG/ML VIAL 1 MG IV PUSH (11:39)
[2023-05-28 12:05] VITALS: BP 121/84; PULSE 82; RESP 18; O2SAT 100
== END 2023-05-28 12:44 | disposition home or self-care (01) ==
PROVIDERS: Emergency Provider Nurse Practitioner Family; PCP Family Medicine
DX: F41.9 Anxiety disorder, unspecified (principal)
CPT/HCPCS: 96361; 96374; 99284; J2060; J7030

== ENCOUNTER 2023-05-29 05:11 | Inpatient (IN) | payer OTHER, SELFPAY ==
[2023-05-29] VITALS (9 sets, daily range): BP systolic 112–150; BP diastolic 68–96; PULSE 77–97; RESP 14–22; TEMP 36.3–37.2; O2SAT 98–100; BMI 29.9
--- NOTE | ~2023-05-29 | CT_ITS ---
Clinical Indication: Chest pain, elevated lipase, elevated d-dimer CT Scan of the Chest, Abdomen, and Pelvis with Contrast: Technique: Contiguous sections were acquired throughout the chest, abdomen, and pelvis after intraven ous administration of 100 cc of Omnipaque 350. Dose reduction technique was used on this scan by uti zabrinaing automated exposure control and iterative reconstruction technique. The dose-length product (DL P) was 841.04 mGy-cm. Findings: There is no evidence of any significant mediastinal, hilar or axillary lymphadenopathy. The mediastin al soft tissues appear normal. No pulmonary embolus seen. No aortic aneurysm or dissection. There is no evidence of pleural or pericardial effusion. The lungs are clear. No pulmonary nodules or infiltrates are noted. The spleen, pancreas, adrenals and kidneys are within normal limits. There is mild intrahepatic bilia ry dilatation, distended gallbladder. Common bile duct measures up to 8-9 mm. Small gallstone present . No evidence of aortic aneurysm. No lymphadenopathy. No bowel obstruction or bowel wall thickening. There is no evidence to suggest acute appendicitis. Urinary bladder is unremarkable. No adnexal mass seen. Trace pelvic ascites. Impression: Mild intrahepatic and extra hepatic biliary dilatation. Consider MR/MRCP to assess for common duct st one or other distal common bile duct pathology. Small gallstone. No pulmonary embolus. Trace pelvic ascites. Reviewed, dictated and finalized at [facility]. LRY CONSULTANT Impression: Mild intrahepatic and extra hepatic biliary dilatation. Consider MR/MRCP to ass ess for common duct stone or other distal common bile duct pathology. Small gallstone. No pulmonary embolus. Trace pelvic ascites.
--- NOTE | ~2023-05-29 | XR_ITS ---
Portable chest x-ray Comparison: 03/28/2023 Clinical History: Chest pain Findings: Lungs are clear, without focal consolidation or pleural effusion. Cardiomediastinal silho uette is stable. Bones and soft tissues are unremarkable. Impression: Normal chest. Reviewed, dictated and finalized at [facility]. E DELIVERY DRIVER Impression: Normal chest.
--- NOTE | ~2023-05-29 | US_ITS ---
EXAMINATION: US abdomen limited DATE: 05/29/2023 07:53 INDICATION: Right upper quadrant pain TECHNIQUE: Multiple grayscale and Doppler ultrasound images of the abdomen were obtained. COMPARISON: None available FINDINGS: Bowel gas obscures visualization of the pancreas. The visualized portions of the pancreas a re unremarkable. The liver is normal with normal echogenicity and echotexture. No surface nodularity. Normal hepatopetal flow in the main portal vein. There are multiple stones in the gallbladder which is mildly distended. No gallbladder wall thickening or pericholecystic fluid are identified. The mild ly dilated common bile duct measures 7 mm. There was no sonographic Perez sign. IMPRESSION: 1. Cholelithiasis and mild gallbladder wall distention without additional findings of acute cholecyst itis. 2. Mildly distended common bile duct. Reviewed, dictated and finalized at location [facility]. HPIECE MAKER IMPRESSION: 1. Cholelithiasis and mild gallbladder wall distention without additional findi ngs of acute cholecystitis. 2. Mildly distended common bile duct.
--- NOTE | ~2023-05-29 | MR_ITS ---
EXAMINATION: MR MRCP wo/w con/w 3D wo ind DATE: 05/29/2023 13:22 INDICATION: Pancreatitis, cholelithiasis TECHNIQUE: Magnetic resonance imaging (MRI) of the abdomen was performed without and with intravenous contrast. Sequences included coronal T2-weighted SS-FSE ARC, coronal T2-weighted FS SS-FSE, coronal T2-weighted 2D FS FIESTA, Water:Coronal LAVA-Flex, sagittal T2-weighted SS-FSE ARC, axial SSFSE ARC, axial 3D DualEcho, axial DWI B=600, axial T1-weighted LAVA, FAT:Coronal LAVA-Flex, and coronal in and opposed phase LAVA-Flex. Thick-slab T2-weighted FRFSE-XL images were obtained for magnetic resonance cholangiopancreatography (MRCP). Maximum intensity projection 3-D reconstructions of the volumetric data were created by the technologist. Postcontrast sequences included a time course of axial T1-weig hted LAVA, FAT:Coronal LAVA-Flex, coronal in and opposed phase LAVA-Flex, and Water:Coronal LAVA-Flex . COMPARISON: CT from today CONTRAST: Multihance, 16 cc FINDINGS: ABDOMEN MRI: The liver, spleen, pancreas, and adrenal glands are normal. Stones are present in the ga llbladder which is mildly distended. No pericholecystic fluid is identified. The kidneys are unremark able. There are no dilated loops of bowel. There are no pathologically enlarged abdominal lymph nodes . There is mild periportal edema of the liver. ABDOMEN MRCP: There is mild intrahepatic and extrahepatic biliary dilatation. No definite stone or st ricture of the common bile duct is identified. The pancreatic duct is normal in its head and not well visualized in the body and tail, likely due to pancreatitis. IMPRESSION: 1. Mild intrahepatic and extrahepatic biliary dilatation without biliary stones or stricture identifi ed. 2. Cholelithiasis and mild gallbladder distention, possibly related to pancreatitis. Reviewed, dictated and finalized at location L. CIATE CURATOR IMPRESSION: 1. Mild intrahepatic and extrahepatic biliary dilatation without biliary stones or stricture identified. 2. Cholelithiasis and mild gallbladder distention, possibly related to pancreat itis.
--- NOTE | 2023-05-29 05:20 | ECG_ITS ---
Measurements Intervals [place] Rate: 100 P: 50 SD: 156 QRS: 57 QRSD: 86 T: 13 QT: 344 QTc: 444 Interpretive Statements SINUS TACHYCARDIA NONSPECIFIC T-WAVE ABNORMALITY- INFERIOR LEADS BORDERLINE ECG COMPARED TO ECG 05/27/2023 23:15:47 SINUS TACHYCARDIA NOW PRESENT T-WAVE ABNORMALITY NOW PRESENT Electronically Signed On 05-29-2023 7:14:16 CORPORATE QUALITY ENGINEER by Luis Jones D.O.
--- NOTE | 2023-05-29 05:34 | ED.GENADULT ---
HPI - General Adult General Chief complaint: Anxiety <Dalton Spain MD - Last Filed: 05/29/23 07:09> Stated complaint: anxiety <Dalton Spain MD - Last Filed: 05/29/23 07:09> Time Seen by Provider: 05/29/23 05:25 <Dalton Spain MD - Last Filed: 05/29/23 07:09> History of Present Illness HPI narrative: Patient 22-year-old female presents the emergency department with chief complaint of panic attack. Patient reports she has been seen in the emergency department several times this week for episodes of panic attacks. Patient states she been having chest pain with this for the last 2 days patient reports the pain is sharp reports that she just cannot get comfortable and cannot calm down. Patient reports no new stressors denies suicidal or homicidal ideation. <Dalton Spain MD - Last Filed: 05/29/23 07:09> Related Data Home medications: Home Medications Medication Instructions Recorded Confirmed aripiprazole 2 mg tablet 2 mg PO DAILY 05/29/23 05/29/23 <Dalton Spain MD - Last Filed: 05/29/23 07:09> Allergies/adverse reactions: Allergies Allergy/AdvReac Type Severity Reaction Status Date / Time No Known Allergies Allergy Verified 05/29/23 05:20 <Dalton Spain MD - Last Filed: 05/29/23 07:09> Review of Systems Review of Systems: A 10 system review of systems was completed on the patient and is negative except for what is stated in the HPI. Nursing and ancillary documentation was reviewed. <Dalton Spain MD - Last Filed: 05/29/23 07:09> PMF Past Medical History Medical History: Medical History Anxiety <Dalton Spian MD - Last Filed: 05/29/23 07:09> Surgical History Surgical History: Surgical History H/O section History of incision and drainage 04/28/23 L bartholin's gland abscess I&D <Dalton Spain MD - Last Filed: 05/29/23 07:09> Social History Social History: Social History Smoking status: Never smoker Alcohol intake: never Substance use: never Lack of Transportation: No Lack of Food: Never True Current Housing: Decline to Answer Concerned About Future Housing: Decline to Answer Difficulty Paying Gas/Electric Bills: Decline to Answer Difficulty Paying for Meds: Decline to Answer Currently Unemployed: Decline to Answer Education: Decline to Answer Difficulty w/ Childcare or Family Care: Decline to Answer Living arrangements: with family Occupation/Education: occupation Spiritual care concerns: No <Dalton Spain MD - Last Filed: 05/29/23 07:09> Exam Narrative: GENERAL: Well-appearing, well-nourished, and in no acute distress. HEAD: Normocephalic, atraumatic. EYES: PERRLA and EOMI. ENT: Nares clear, no rhinorrhea or epistaxis. Mucous membranes moist. NECK: Supple. CHEST: Clear to auscultation. No respiratory distress. Chest wall is tender to palpation HEART: Regular rate and rhythm. No murmur heard. Normal peripheral pulses. ABDOMEN: Soft, nontender, nondistended, normal active bowel sounds. EXTREMITIES: Normal range of motion. No edema. SKIN: Warm, dry, no rash. NEURO: No focal deficits. Alert and oriented x3. PSYCH: Anxious. <Dalton Spain MD - Last Filed: 05/29/23 07:09> Course Course Emergency Course: Patient resting comfortably. Informed of imaging and lab results. I have consulted Dr. Gómez with GI, Dr. Finley with general surgery, and the patient has been accepted by the hospitalist service. Patient be kept n.p.o. and aggressively hydrated. We will ensure pain control with IV medication. <Joni Odonnell MD - Last Filed: 05/29/23 18:21> Vital Signs Vital signs: Vital Signs Te
[2023-05-29] MEDS: KETOROLAC 30 MG/ML VIAL (*BKC) 15 MG IV PUSH (05:42)
[2023-05-29] MEDS: LORazepam INJ (*CRX) 2 MG/ML VIAL 1 MG IV PUSH (05:43)
[2023-05-29 06:01] LABS: Basophils Percent Auto 0.5 % (0.2-1.2); Eosinophils Absolute Auto 0.1 K/mm3 (0-0.3); Eosinophils Percent Auto 0.8 % (0-4.4); Hematocrit 36.8 % (37.0-47.0); Hemoglobin 11.8 g/dL (12.0-15.0); Immature Granulocyte Absolute 0.04 K/mm3 (0.00-0.031); Immature Granulocyte Percent A 0.5 % (0-0.5); Lymphocytes Absolute Auto 1.08 K/mm3 (0.9-3.2); Lymphocytes Percent Auto 14.3 % (18.3-44.2); Mean Corpuscular HGB Conc 32.1 g/dl (32-36); Mean Corpuscular Hemoglobin 29.5 pg (26-34); Mean Platelet Volume 11.2 fl (7.4-10.4); Monocytes Absolute Auto 0.4 K/mm3 (0.1-0.6); Monocytes Percent Auto 4.8 % (2.6-8.5); Neutrophils Percent Auto 79.1 % (45.5-73.1); Platelet Count Result 245 k/mm3 (150-375); White Blood Count 7.5 K/mm3 (4.5-10.0)
[2023-05-29 06:06] LABS: Alanine Aminotransferase 326 U/L (6-35); Albumin Level 4.5 g/dL (3.5-5.1); Alkaline Phosphatase 183 U/L (38-126); Anion Gap 6 mmol/L (8-16); Aspartate Amino Transferase 291 U/L (14-36); Bilirubin,Total 3.4 mg/dL (0.2-1.3); Blood Urea Nitrogen 6 mg/dL (7-17); Calcium 9.3 mg/dL (8.4-10.2); Carbon Dioxide 26 mmol/L (22-30); Chloride 106 mmol/L (98-107); Estimated CRCL calculation 130 ml/min; Estimated Glomerular Filt Rate > 60; Glucose 130 mg/dL (65-110); Sodium 138 mmol/L (137-145)
[2023-05-29 06:09] LABS: INR 1.1; Prothrombin Time 14.4 Seconds (11.1-14.7)
[2023-05-29 06:10] LABS: Partial Thromboplastin Time 34.6 SECONDS (22.3-36.8)
[2023-05-29 06:13] LABS: Lipase 3977 U/L (23-300)
[2023-05-29 06:16] LABS: NT Pro B Type Natriuretic Pept 34 pg/mL (19.9-100); Troponin I < 0.012 ng/mL (0.000-0.034)
[2023-05-29 06:28] LABS: D Dimer 0.94 ug/mL (<0.48)
--- NOTE | 2023-05-29 07:14 | PC.NURSE ---
Assumed care of pt, pt is currently in U/S and CT scan.
[2023-05-29] MEDS: MORPHINE SULFATE (*CRX) 4 MG/ML INJ IV PUSH ×2 (07:59→17:48)
--- NOTE | 2023-05-29 08:50 | PM.IMHP ---
H&P: HPI History of Present Illness Date/Time: 05/29/23 08:50 Chief Complaint: Abdomen pain Narrative: 22 years old lady with history of anxiety, present ED with a chief complaint of chest pain in past 2 days. Patient has been having intermittent right upper quadrant pain, epigastric pain since Friday, associated with nausea vomiting. Patient denies diarrhea, chills, fever, and patient also denies chest pain shortness breast dysuria. Patient came to ED for evaluation, in the ED, patient was found have s elevated bilirubin of 3.4 AST and ALT were elevated at 291 and 326 alk phos was 183.? Lipase is elevated at 3977. CTA of chest abdomen pelvis shows no PE but mild intrahepatic and extra hepatic biliary dilatation and gallstone. ER physician consulted general surgeon and GI. We admit patient for further evaluation and management Review of Systems Review of Systems: ROS negative except above PMFSH Past Medical History Medical History Anxiety Surgical History Surgical History H/O section History of incision and drainage 04/28/23 L bartholin's gland abscess I&D Social History Social History Smoking status: Never smoker Alcohol intake: never Substance use: never Lack of Transportation: No Lack of Food: Never True Current Housing: Decline to Answer Concerned About Future Housing: Decline to Answer Difficulty Paying Gas/Electric Bills: Decline to Answer Difficulty Paying for Meds: Decline to Answer Currently Unemployed: Decline to Answer Education: Decline to Answer Difficulty w/ Childcare or Family Care: Decline to Answer Living arrangements: with family Occupation/Education: occupation Spiritual care concerns: No Meds Home Medications and Allergies Home Medications Medication Instructions Recorded Confirmed Type hydroxyzine HCl 25 mg tablet 25 mg PO TID PRN anxiety #30 tabs 12/29/22 Rx fluconazole 200 mg tablet 200 mg PO Q72H PRN vaginal itching 04/28/23 Rx (Diflucan) #2 tabs ibuprofen 800 mg tablet 800 mg PO TID #30 tabs 04/28/23 Rx sulfamethoxazole 800 1 tablet PO Q12H #14 tabs 04/28/23 Rx mg-trimethoprim 160 mg tablet (Bactrim DS) lorazepam 1 mg tablet (Ativan) 1 mg PO TID PRN anxiety #21 tabs 05/28/23 Rx lorazepam 1 mg tablet (Ativan) 1 mg PO TID PRN anxiety #21 tabs 05/28/23 Rx Allergies Allergy/AdvReac Type Severity Reaction Status Date / Time No Known Allergies Allergy Verified 05/29/23 05:20 Vital Signs Vital Signs - 24 hr 05/29/23 05:14 05/29/23 06:32 05/29/23 07:37 Temperature 98.5 F Pulse Rate 97 82 87 Respiratory Rate 22 H 18 20 Blood Pressure 150/94 H 138/86 126/96 H Pulse Oximetry 98 98 99 Oxygen Delivery Room Air 05/29/23 08:49 Temperature Pulse Rate 86 Respiratory Rate 14 Blood Pressure 129/89 Pulse Oximetry 99 Oxygen Delivery Exam Narrative: GENERAL: Pleasant, in no acute distress. Well-nourished. - EYES: EOMI. Anicteric. - HENT: Moist mucous membranes. - LUNGS: Clear to auscultation bilaterally, no wheezing, rhonchi, or rales. - CARDIOVASCULAR: Regular rate and rhythm. No murmur. No JVD. - ABDOMEN: Soft, diffuse tender and non-distended. No rebound no palpable masses. - EXTREMITIES: No edema. Peripheral pulses 2+. Non-tender. - NEUROLOGIC: No focal neurological deficits. CN II-XII grossly intact. - PSYCHIATRIC: Awake, Alert and oriented x 3. Appropriate mood and affect. - SKIN: No rashes or lesions. Warm. - LYMPH: No cervical lymphadenopathy. H&P: Results Labs Labs: Short CBC 05/29/23 Range/Units 05:40 WBC 7.5 (4.5-10.0) K/mm3 Hgb 11.8 L (12.0-15.0) g/dL Hct 36.8 L (37.0-47.0) % Plt Count 245 (150-375) k/mm3 [facility] 05/29/23 05:40 Sodium 138 Potassium 3.0 L Chloride 106 Carbon Dioxi
[2023-05-29] MEDS: LACTATED RINGERS 1,000 ML 200 ML IV CONT ×2 (09:19→20:58)
[2023-05-29 09:33] LABS: Magnesium 2.2 mg/dL (1.6-2.3); Phosphorus 2.9 mg/dL (2.5-4.5)
--- NOTE | 2023-05-29 10:43 | PM.CNGS ---
Assessment and Plan Assessment and plan (1) Acute pancreatitis: Code(s): K85.90 - Acute pancreatitis without necrosis or infection, unspecified Status: Acute Assessment and Plan: Patient presents with acute pancreatitis, likely biliary. Gallstones and biliary duct dilatation on imaging. No heavy alcohol use. Agree with GI consultation. We would recommend to continue with medical management of the pancreatitis with IV fluids and analgesics for pain control. Will try her on clear liquids today. IV antibiotics are not indicated for acute pancreatitis, and I would recommend stopping the IV Unasyn. Will repeat labs again tomorrow morning. She will need an interval laparoscopic cholecystectomy at some point once her pancreatitis has improved. (2) Cholelithiasis: Code(s): K80.20 - Calculus of gallbladder without cholecystitis without obstruction Status: Acute Assessment and Plan: We will continue to follow along to find optimal timing for proceeding with a laparoscopic cholecystectomy. (3) Elevated liver enzymes: Code(s): R74.8 - Abnormal levels of other serum enzymes Status: Acute Assessment and Plan: Liver enzymes elevated with total bilirubin 3.4 and biliary dilatation on imaging with common bile duct measuring 7 mm on ultrasound. GI consulted. No common duct stone seen on initial imaging, may need MRCP and possible ERCP. Will await GI's recommendations. Trend labs. (4) Common bile duct dilatation: Code(s): K83.8 - Other specified diseases of biliary tract Status: Acute (5) Anxiety: Code(s): F41.9 - Anxiety disorder, unspecified Status: Acute Plan I have discussed the patient's case and plan of care with Dr. Finley. Thank you for allowing us to see the patient in consultation and we will continue to follow along with you. History of Present Illness Consult details Consult date: 05/29/23 Reason for consult: other (Gallstone pancreatitis) Requesting physician: Joni Odonnell MD Narrative: This is a 22-year-old who came into the ER for chest pain and an anxiety attack. She has reportedly been having these attacks over the past year where she would develop mid sternal chest pain that radiated to her back and felt like she could not breathe, which her and her parents thought was related to anxiety and panic attacks. She had been brought into the ER on multiple occasions and treated for anxiety. At times she would have nausea and vomiting. This attack started two days ago in the early afternoon. She remembers having oatmeal earlier in the morning prior to the onset of her chest pain and difficulty breathing. She felt like she could not breath and her pain started radiating in the epigastric area across her entire upper abdomen under her ribs and into her mid back. She developed nausea and multiple episodes of vomiting. This continued into yesterday and she was brought into the ER yesterday for evaluation. As they thought this was anxiety, she was given Ativan and sent home. She was brought back into the ER early this morning again for evaluation as symptoms did not improve. Labs showed a white blood cell count of 7.5, potassium 3.0, total bilirubin .4, AST 291, ALT 26, alk phos 18, lipase 977, and troponin negative. Chest x-ray negative. CTA chest, abdomen, and pelvis showed mild intrahepatic and extra hepatic biliary dilatation, cholelithiasis, trace pelvic ascites, and NO PE. RUQ ultrasound showed cholelithiasis and mild gallbladder wall distention without any additional findings to suggest acute cholecystitis, mildly dilated common bile duct 7mm. She is admitted in the setting of acute pancreatitis with cholelithiasis. Our service was consulted and GI has been consulted. She is currently NPO with IV fluids. She was also started on IV Unasyn. Her parents are at the bedside. She reports her chest and abdominal pain improved significantly after the IV Morphine. She is actually hungry
[2023-05-29] MEDS: POTASSIUM CHLORIDE INJ 40 MEQ in SODIUM CHLORIDE 0.9% IV 500 ML 130 MEQ IVPB (11:50)
[2023-05-29] MEDS: HYDROcodone/acetaminophen (*CRX) 5-325 MG TABLET 1 TAB PO (14:11)
--- NOTE | 2023-05-29 14:50 | WPDGICN ---
Assessment and Plan Assessment and plan (1) Cholelithiasis: Code(s): K80.20 - Calculus of gallbladder without cholecystitis without obstruction Status: Acute Assessment and Plan: Patient found to have gallstones on ultrasound and CT scan imaging likely will require cholecystectomy at some point because of pancreatitis. Typically it is deferred until after pancreatitis has subsided. (2) Elevated liver enzymes: Code(s): R74.8 - Abnormal levels of other serum enzymes Status: Acute Assessment and Plan: Elevated LFTs appear to be on the basis of acute pancreatitis and subsequent edema and swelling. MRCP which was performed today reveals no evidence of common duct obstruction or stricturing. She does have gallstones. Surgery has been consulted will follow with us. (3) Acute pancreatitis: Code(s): K85.90 - Acute pancreatitis without necrosis or infection, unspecified Status: Acute Assessment and Plan: Patient found to have gallstones on imaging along with elevated lipase consistent with gallstone pancreatitis. I suspect she had passage of common duct stone which has caused this pancreatitis. Imaging studies including MRCP reveals this is the likely has passed. Would suggest interval cholecystectomy under the direction surgical service. Hopefully intraoperative cholangiogram can be performed at that time to clear the common bile duct as well. I see no reason to perform preprocedure ERCP at this time. Continue supportive care with bowel rest and pain control for now until pancreatitis has subsided. GI Consult Note Consult date/time: 05/29/23 14:50 Reason for consult: Gallstone pancreatitis. HPI: Amy Garcia is a 22 year old female I am asked to see at the request of the emergency room because of gallstone pancreatitis. Patient known to have underlying anxiety and has had previous panic attacks. She became somewhat anxious with substernal and epigastric pain. Initially thought to be secondary to anxiety she went to the emergency room where laboratory testing revealed elevated LFTs and elevated lipase. Patient denies any prior history of gallbladder or liver disease. She denies any significant alcohol intake. Family history is noncontributory. Review of Systems Review of Systems: Review of systems noncontributory. [facility] Past Medical History Medical History Anxiety Surgical History Surgical History H/O section History of incision and drainage 04/28/23 L bartholin's gland abscess I&D Social History Social History Smoking status: Never smoker Alcohol intake: never Substance use: never Lack of Transportation: No Lack of Food: Never True Current Housing: Decline to Answer Concerned About Future Housing: Decline to Answer Difficulty Paying Gas/Electric Bills: Decline to Answer Difficulty Paying for Meds: Decline to Answer Currently Unemployed: Decline to Answer Education: Decline to Answer Difficulty w/ Childcare or Family Care: Decline to Answer Living arrangements: with family Occupation/Education: occupation Spiritual care concerns: No Meds Home Medications and Allergies Home Medications Medication Instructions Recorded Confirmed Type hydroxyzine HCl 25 mg tablet 25 mg PO TID PRN anxiety #30 tabs 12/29/22 Rx fluconazole 200 mg tablet 200 mg PO Q72H PRN vaginal itching 04/28/23 Rx (Diflucan) #2 tabs ibuprofen 800 mg tablet 800 mg PO TID #30 tabs 04/28/23 Rx sulfamethoxazole 800 1 tablet PO Q12H #14 tabs 04/28/23 Rx mg-trimethoprim 160 mg tablet (Bactrim DS) lorazepam 1 mg tablet (Ativan) 1 mg PO TID PRN anxiety #21 tabs 05/28/23 Rx lorazepam 1 mg tablet (Ativan) 1 mg PO TID PRN anxiety #21 tabs 05/28/23 Rx Allergies
[2023-05-29] MEDS: HEPARIN SODIUM 5,000 UNITS/ML VIAL 5000 UNITS SUB-Q (20:58)
[2023-05-30] MEDS: LACTATED RINGERS 1,000 ML 200 ML IV CONT ×2 (02:01→06:55)
[2023-05-30 04:54] VITALS: BP 134/71; PULSE 81; RESP 16; TEMP 36.4; O2SAT 100
[2023-05-30 05:51] LABS: Basophils Percent Auto 0.5 % (0.2-1.2); Eosinophils Absolute Auto 0.2 K/mm3 (0-0.3); Eosinophils Percent Auto 3.3 % (0-4.4); Hemoglobin 10.8 g/dL (12.0-15.0); Immature Granulocyte Absolute 0.01 K/mm3 (0.00-0.031); Immature Granulocyte Percent A 0.2 % (0-0.5); Lymphocytes Absolute Auto 1.78 K/mm3 (0.9-3.2); Mean Corpuscular HGB Conc 30.9 g/dl (32-36); Mean Corpuscular Hemoglobin 29.1 pg (26-34); Mean Corpuscular Volume 94.3 fl (80-100); Monocytes Absolute Auto 0.4 K/mm3 (0.1-0.6); Monocytes Percent Auto 6.8 % (2.6-8.5); Neutrophils Absolute Auto 3.4 K/mm3 (1.3-6.7); Neutrophils Percent Auto 58.2 % (45.5-73.1); Platelet Count Result 201 k/mm3 (150-375); Red Blood Count 3.71 M/mm3 (4.2-5.4); Red Cell Distribution Width 13.2 % (11.5-14.5); White Blood Count 5.8 K/mm3 (4.5-10.0)
[2023-05-30 06:04] LABS: Alanine Aminotransferase 271 U/L (6-35); Albumin Level 3.6 g/dL (3.5-5.1); Alkaline Phosphatase 167 U/L (38-126); Anion Gap 7 mmol/L (8-16); Aspartate Amino Transferase 127 U/L (14-36); Blood Urea Nitrogen 3 mg/dL (7-17); Calcium 8.6 mg/dL (8.4-10.2); Carbon Dioxide 25 mmol/L (22-30); Chloride 107 mmol/L (98-107); Estimated CRCL calculation 129 ml/min; Estimated Glomerular Filt Rate > 60; Glucose 79 mg/dL (65-110); Lipase 379 U/L (23-300); Potassium 3.2 mmol/L (3.4-5.0); Sodium 139 mmol/L (137-145)
--- NOTE | 2023-05-30 06:49 | WPDGIPROGNO ---
Progress Note: A&P Assessment and Plan (1) Biliary acute pancreatitis without necrosis or infection: Code(s): K85.10 - Biliary acute pancreatitis without necrosis or infection Status: Acute Assessment and Plan: she is improving rapidly. Bilirubin down. Lipase down from 3977 yesterday to 379 today. (2) Cholelithiasis: Code(s): K80.20 - Calculus of gallbladder without cholecystitis without obstruction Status: Acute Assessment and Plan: She was told by surgery she would probably have a cholecystectomy at some later date. (3) Transaminitis: Code(s): R74.01 - Elevation of levels of liver transaminase levels Status: Acute Assessment and Plan: AST and ALT are slowly coming down, 127 and 271 respectively. Alkaline phosphatase also slightly lower at 167. Plan Will start clear liquid diet. Consider discharge tomorrow morning. She is scheduled for laparoscopic cholecystectomy next week Subjective Date/time seen: 05/30/23 06:49 she is feeling much better today. She has had no vomiting. She had some nausea yesterday. She is eager to try liquids. She states that surgery told her that she probably would not have a cholecystectomy in the next few days because of the upcoming weekend. Therefore I will try her on clear liquid diet. I told her that her blood tests are improving and it does not appear that she needs ERCP. Exam Const: General: cooperative and healthy appearing Orientation/consciousness: patient oriented x3 HENMT: Head: normal to inspection Ears: hearing grossly normal bilaterally Mouth: Yes Normal oral and palatal mucosa present Eyes: General: appearance normal, both eyes and all related structures Neck: Neck: normal visual inspection Chest: Chest palpation & inspection: normal inspection of the chest Resp: Effort & Inspection: normal respiratory effort Auscultation: clear to auscultation bilaterally Cardio: Rate: regular rate Rhythm: regular rhythm GI: Inspection: normal to inspection GI Palp: Yes Soft to palpation, Yes Tenderness to palpation present (GI) ( mildly tender epigastric) and Yes No hepatosplenomegaly present Auscultation: normal bowel sounds Skin: General skin exam: normal color and no jaundice Neuro: General: patient oriented x3 Speech: normal speech Objective Data Vital Signs Vital Signs: Vital Signs - 24 hr 05/29/23 07:37 05/29/23 08:49 05/29/23 09:16 Temperature Pulse Rate 87 86 80 Respiratory Rate 20 14 19 Blood Pressure 126/96 H 131/86 136/84 Pulse Oximetry 99 99 99 Oxygen Delivery 05/29/23 10:11 05/29/23 14:00 05/29/23 14:40 Temperature 36.9 C 37.2 C Pulse Rate 77 77 Respiratory Rate 14 18 Blood Pressure 117/78 112/68 Pulse Oximetry 100 100 Oxygen Delivery Room Air 05/29/23 20:55 05/29/23 20:00 05/30/23 04:54 Temperature 36.3 C L 36.4 C Pulse Rate 79 79 81 Respiratory Rate 18 18 16 Blood Pressure 134/82 134/71 Pulse Oximetry 100 100 100 Oxygen Delivery Room Air Intake/Output Intake/Output: Intake & Output 05/27/23 05/28/23 05/29/23 05/30/23 23:59 23:59 23:59 23:59 Intake Total 1520 1000 Balance 1520 1000 Meds/Results Medications: Active Medications Generic Name Dose Route Start Last Admin Trade Name Freq PRN Reason Stop Dose Admin Hydrocodone Bitart/Acetaminophen 1 tab 05/29/23 13:55 05/29/23 14:11 Hydrocodone/Acetaminophen (*Crx) 5-325 Mg Tablet PO 1 tab Q4H PRN Administration Pain Rated 4-6 Heparin Sodium (Porcine) 5,000 units 05/29/23 21:00 05/29/23 20:58 Heparin Sodium 5,000 Units/Ml Vial SUB-Q 5,000 units Q12HR CIARA Administration Lactated Ringer's 1,000 mls @ 200 mls/hr 05/29/23 09:05 05/30/23 02:01 Lr - Lactated Ringers Iv IV CONT 200 mls/hr .Q5H CIARA Administration Morphine Sulfate 4 mg 05/29/23 14:01 05/29/23 17:48 Morphine Sulfate (*Crx) 4 Mg/Ml Inj IV PUSH 4 mg Q4H PRN Administration
[2023-05-30] MEDS: HEPARIN SODIUM 5,000 UNITS/ML VIAL 5000 UNITS SUB-Q ×2 (08:31→20:02)
[2023-05-30] MEDS: HYDROcodone/acetaminophen (*CRX) 5-325 MG TABLET 1 TAB PO (08:31)
--- NOTE | 2023-05-30 09:51 | PM.IMPN ---
Progress Note: A&P Assessment and Plan (1) Acute pancreatitis: Code(s): K85.90 - Acute pancreatitis without necrosis or infection, unspecified Status: Deleted (2) Gallstone: Code(s): K80.20 - Calculus of gallbladder without cholecystitis without obstruction Status: Deleted (3) Common bile duct dilatation: Code(s): K83.8 - Other specified diseases of biliary tract Status: Deleted (4) Elevated liver enzymes: Code(s): R74.8 - Abnormal levels of other serum enzymes Status: Deleted (5) Anxiety: Code(s): F41.9 - Anxiety disorder, unspecified Status: Acute Plan Acute pancreatitis Most likely related to gallstone and bile duct obstruction Optimize pain management Antiemetic medication p.r.n. Start fluid resuscitation with lactated Ringer Start clear diet per GI But patient still cannot tolerate diet because of pain and nausea vomiting Gallstone with gallbladder distension, common bile duct dilatation, elevated liver enzymes CT ultrasound shows gallstone, gallbladder distension Mild bile duct dilatation Patient may pass gallstone from common bile duct Consult GI and general surgeon for evaluation treatment Started Unasyn IV possible acute cholecystitis, but stopped soon per surgeon recommendation Patient afebrile Hypokalemia Start lactated Ringer IV Follow-up BMP Anxiety Ativan IV p.r.n. Subjective Date/time seen: 05/30/23 09:51 Interval history: I saw exam patient today. Patient still has nausea of vomiting intermittently, pain is better controlled but still has severe pain needs frequent narcotic medication Exam Narrative: GENERAL: Pleasant, in no acute distress. Well-nourished. - EYES: EOMI. Anicteric. - HENT: Moist mucous membranes. - LUNGS: Clear to auscultation bilaterally, no wheezing, rhonchi, or rales. - CARDIOVASCULAR: Regular rate and rhythm. No murmur. No JVD. - ABDOMEN: Soft, diffuse tender and non-distended. No rebound no palpable masses. - EXTREMITIES: No edema. Peripheral pulses 2+. Non-tender. - NEUROLOGIC: No focal neurological deficits. CN II-XII grossly intact. - PSYCHIATRIC: Awake, Alert and oriented x 3. Appropriate mood and affect. - SKIN: No rashes or lesions. Warm. - LYMPH: No cervical lymphadenopathy. Objective Data Vital Signs Vital Signs: Vital Signs - 24 hr 05/29/23 10:11 05/29/23 14:00 05/29/23 14:40 Temperature 98.4 F 98.9 F Pulse Rate 77 77 Respiratory Rate 14 18 Blood Pressure 117/78 112/68 Pulse Oximetry 100 100 Oxygen Delivery Room Air 05/29/23 20:55 05/29/23 20:00 05/30/23 04:54 Temperature 97.3 F L 97.6 F Pulse Rate 79 79 81 Respiratory Rate 18 18 16 Blood Pressure 134/82 134/71 Pulse Oximetry 100 100 100 Oxygen Delivery Room Air 05/30/23 08:00 Temperature Pulse Rate Respiratory Rate Blood Pressure Pulse Oximetry Oxygen Delivery Room Air Intake/Output Intake/Output: Intake & Output 05/27/23 05/28/23 05/29/23 05/30/23 23:59 23:59 23:59 23:59 Intake Total 1520 1999 Balance 1520 1999 Meds/Results Medications: Active Medications Generic Name Dose Route Start Last Admin Trade Name Freq PRN Reason Stop Dose Admin Hydrocodone Bitart/Acetaminophen 1 tab 05/29/23 13:55 05/30/23 08:31 Hydrocodone/Acetaminophen (*Crx) 5-325 Mg Tablet PO 1 tab Q4H PRN Administration Pain Rated 4-6 Heparin Sodium (Porcine) 5,000 units 05/29/23 21:00 05/30/23 08:31 Heparin Sodium 5,000 Units/Ml Vial SUB-Q 5,000 units Q12HR CIARA Administration Lactated Ringer's 1,000 mls @ 80 mls/hr 05/29/23 09:05 05/30/23 06:55 Lr - Lactated Ringers Iv IV CONT 200 mls/hr .[id number] CIARA Administration Morphine Sulfate 4 mg 05/29/23 14:01 05/29/23 17:48 Morphine Sulfate (*Crx) 4 Mg/Ml Inj IV PUSH 4 mg Q4H PRN Administration Pain Rated 7-10 Naloxone HCl 0.1 mg 05/29/23 09:04 Naloxone Hcl 0.4 Mg/Ml Vial IV PUSH Q2M PRN
--- NOTE | 2023-05-30 10:55 | PM.PNGS ---
Progress Note: A&P Assessment and Plan (1) Biliary acute pancreatitis without necrosis or infection: Code(s): K85.10 - Biliary acute pancreatitis without necrosis or infection Status: Acute Assessment and Plan: Seems to be much better today. More comfortable an abdomen essentially nontender. Lipase and liver function tests are quite a bit improved. MRCP yesterday did not show any common bile duct stones and did not even show pancreatitis. She did not tolerate clear liquids yesterday as she had recurrent abdominal pain. Agree trying them again today is a good idea. Hopefully she will tolerate oral intake well from here. She feels so much better today, she would like to go home tomorrow. From my perspective, being discharged tomorrow is fine. I have her scheduled for outpatient laparoscopic cholecystectomy on Friday06/04/2023 at 2:00 a.m.. I discussed again with her the procedure of laparoscopic cholecystectomy. This includes the risks, benefits, and usual recovery. All questions were answered. I expect she will be discharged this weekend and can come back Friday for outpatient surgery as planned. I will place this information in the discharge instructions. Subjective Subjective Date/Time Seen: 05/30/23 10:55 Patient reports: feels better, pain is less (Nearly gone.), no bowel movement, afebrile and other (Patient had recurrent abdominal pain after trying clear liquid meal yesterday. Had to be made NPO. Now to get clear liquids at lunchtime.) Review of Systems Review of Systems: All systems reviewed & are unremarkable except as noted in HPI and below (HPI) Exam Const: General: comfortable and no acute distress Orientation/consciousness: patient oriented x3 GI: Inspection: normal to inspection, non-distended, scaphoid and no visible herniation GI Palp: Yes Soft to palpation, Yes Tenderness to palpation present (GI) (Tenderness almost completely gone. Especially in the epigastric area.), No Guarding due to palpation present (GI), No Hepatosplenomegaly present, No Hernia present, No Palpable mass present and No Rebound tenderness present Neuro: General: patient oriented x3 and no focal motor deficits Extrem: General: no calf tenderness and no edema Psych: Affect: normal affect Insight: Good insight present (Psych) Judgement: Good judgement present (Psych) Objective Data Vital Signs Vital Signs: Vital Signs - 24 hr 05/29/23 14:00 05/29/23 14:40 05/29/23 20:55 Temperature 37.2 C 36.3 C L Pulse Rate 77 79 Respiratory Rate 18 18 Blood Pressure 112/68 134/82 Pulse Oximetry 100 100 Oxygen Delivery Room Air 05/29/23 20:00 05/30/23 04:54 05/30/23 08:00 Temperature 36.4 C Pulse Rate 79 81 Respiratory Rate 18 16 Blood Pressure 134/71 Pulse Oximetry 100 100 Oxygen Delivery Room Air Room Air Intake/Output Intake/Output: Intake & Output 05/27/23 05/28/23 05/29/23 05/30/23 23:59 23:59 23:59 23:59 Intake Total 1520 1999 Balance 1520 1999 Meds/Results Medications: Active Medications Generic Name Dose Route Start Last Admin Trade Name Freq PRN Reason Stop Dose Admin Hydrocodone Bitart/Acetaminophen 1 tab 05/29/23 13:55 05/30/23 08:31 Hydrocodone/Acetaminophen (*Crx) 5-325 Mg Tablet PO 1 tab Q4H PRN Administration Pain Rated 4-6 Heparin Sodium (Porcine) 5,000 units 05/29/23 21:00 05/30/23 08:31 Heparin Sodium 5,000 Units/Ml Vial SUB-Q 5,000 units Q12HR CIARA Administration Lactated Ringer's 1,000 mls @ 80 mls/hr 05/29/23 09:05 05/30/23 10:12 Lr - Lactated Ringers Iv IV CONT 80 mls/hr .[id number] CIARA Infusion Morphine Sulfate 4 mg 05/29/23 14:01 05/29/23 17:48 Morphine Sulfate (*Crx) 4 Mg/Ml Inj IV PUSH 4 mg Q4H PRN Administration Pain Rated 7-10 Naloxone HCl 0.1 mg 05/29/23 09:04 Naloxone Hcl 0.4 Mg/Ml Vial IV PUSH Q2M PRN Opiate Reversal Ondansetron HCl 4 mg 05/29/23 09:04 Ondans
[2023-05-30] MEDS: MORPHINE SULFATE (*CRX) 4 MG/ML INJ IV PUSH ×2 (13:35→20:00)
[2023-05-30] MEDS: ONDANSETRON INJ 4 MG/2 ML VIAL IV PUSH (13:36)
[2023-05-30] MEDS: LACTATED RINGERS 1,000 ML 80 ML IV CONT (13:39)
[2023-05-30 14:00] VITALS: BP 114/75; PULSE 62; RESP 16; TEMP 36.7; O2SAT 98
[2023-05-30] MEDS: POTASSIUM CHLORIDE 20 MEQ PACKET (FOR LIQUID) 40 MEQ PO (17:24)
[2023-05-30 20:00] VITALS: PULSE 79; RESP 16; O2SAT 100
[2023-05-30 20:35] VITALS: BP 121/74; PULSE 79; RESP 16; TEMP 36.6; O2SAT 100
[2023-05-31] MEDS: LACTATED RINGERS 1,000 ML 80 ML IV CONT ×2 (02:55→15:25)
[2023-05-31] MEDS: HYDROcodone/acetaminophen (*CRX) 5-325 MG TABLET 1 TAB PO ×3 (02:57→22:27)
[2023-05-31 05:05] VITALS: BP 119/82; PULSE 83; RESP 14; TEMP 36.2; O2SAT 99
[2023-05-31] MEDS: HEPARIN SODIUM 5,000 UNITS/ML VIAL 5000 UNITS SUB-Q ×2 (08:16→20:22)
--- NOTE | 2023-05-31 08:43 | WPDGIPROGNO ---
Progress Note: A&P Assessment and Plan (1) Biliary acute pancreatitis without necrosis or infection: Code(s): K85.10 - Biliary acute pancreatitis without necrosis or infection Status: Acute Assessment and Plan: she is improving rapidly. Bilirubin down. Lipase down from 3977 yesterday to 379 today. (2) Cholelithiasis: Code(s): K80.20 - Calculus of gallbladder without cholecystitis without obstruction Status: Acute Assessment and Plan: She was told by surgery she would probably have a cholecystectomy at some later date. (3) Transaminitis: Code(s): R74.01 - Elevation of levels of liver transaminase levels Status: Acute Assessment and Plan: AST and ALT are slowly coming down, 127 and 271 respectively. Alkaline phosphatase also slightly lower at 167. Plan Will start clear liquid diet. Consider discharge tomorrow morning. She is scheduled for laparoscopic cholecystectomy next week Will try low-fat diet. If he tolerates that then I think she could be discharged today. Subjective Date/time seen: 05/31/23 08:43 She is comfortable today. Has not yet gotten her low-fat diet I ordered. She thinks she will be able to eat. She is not nauseated. Her pain is essentially gone. Exam Const: General: cooperative and healthy appearing Orientation/consciousness: patient oriented x3 HENMT: Head: normal to inspection Ears: hearing grossly normal bilaterally Mouth: Yes Normal oral and palatal mucosa present Eyes: General: appearance normal, both eyes and all related structures Neck: Neck: normal visual inspection Chest: Chest palpation & inspection: normal inspection of the chest Resp: Effort & Inspection: normal respiratory effort Auscultation: clear to auscultation bilaterally Cardio: Rate: regular rate Rhythm: regular rhythm GI: Inspection: normal to inspection GI Palp: Yes Soft to palpation, Yes Tenderness to palpation present (GI) ( mildly tender epigastric) and Yes No hepatosplenomegaly present Auscultation: normal bowel sounds Skin: General skin exam: normal color and no jaundice Neuro: General: patient oriented x3 Speech: normal speech Objective Data Vital Signs Vital Signs: Vital Signs - 24 hr 05/30/23 14:00 05/30/23 20:35 05/30/23 20:00 Temperature 36.7 C 36.6 C Pulse Rate 62 79 79 Respiratory Rate 16 16 16 Blood Pressure 114/75 121/74 Pulse Oximetry 98 100 100 Oxygen Delivery Room Air 05/31/23 05:05 Temperature 36.2 C L Pulse Rate 83 Respiratory Rate 14 Blood Pressure 119/82 Pulse Oximetry 99 Oxygen Delivery Intake/Output Intake/Output: Intake & Output 05/28/23 05/29/23 05/30/23 05/31/23 23:59 23:59 23:59 23:59 Intake Total 1520 4350 1650 Balance 1520 4350 1650 Meds/Results Medications: Active Medications Generic Name Dose Route Start Last Admin Trade Name Freq PRN Reason Stop Dose Admin Hydrocodone Bitart/Acetaminophen 1 tab 05/29/23 13:55 05/31/23 02:57 Hydrocodone/Acetaminophen (*Crx) 5-325 Mg Tablet PO 1 tab Q4H PRN Administration Pain Rated 4-6 Heparin Sodium (Porcine) 5,000 units 05/29/23 21:00 05/31/23 08:16 Heparin Sodium 5,000 Units/Ml Vial SUB-Q 5,000 units Q12HR CIARA Administration Lactated Ringer's 1,000 mls @ 80 mls/hr 05/29/23 09:05 05/31/23 02:55 Lr - Lactated Ringers Iv IV CONT 80 mls/hr .[id number] CIARA Administration Morphine Sulfate 4 mg 05/29/23 14:01 05/30/23 20:00 Morphine Sulfate (*Crx) 4 Mg/Ml Inj IV PUSH 4 mg Q4H PRN Administration Pain Rated 7-10 Naloxone HCl 0.1 mg 05/29/23 09:04 Naloxone Hcl 0.4 Mg/Ml Vial IV PUSH Q2M PRN Opiate Reversal Ondansetron HCl 4 mg 05/29/23 09:04 05/30/23 13:36 Ondansetron Inj 4 Mg/2 Ml Vial IV PUSH 4 mg Q6H PRN Administration Nausea And Vomiting Potassium Chloride 40 meq 05/30/23 17:00 05/30/23 17:24 Potassium Chloride 20 Meq Packet (For Liquid) PO
--- NOTE | 2023-05-31 09:27 | PM.IMPN ---
Progress Note: A&P Assessment and Plan (1) Acute pancreatitis: Code(s): K85.90 - Acute pancreatitis without necrosis or infection, unspecified Status: Deleted (2) Gallstone: Code(s): K80.20 - Calculus of gallbladder without cholecystitis without obstruction Status: Deleted (3) Common bile duct dilatation: Code(s): K83.8 - Other specified diseases of biliary tract Status: Deleted (4) Elevated liver enzymes: Code(s): R74.8 - Abnormal levels of other serum enzymes Status: Deleted (5) Anxiety: Code(s): F41.9 - Anxiety disorder, unspecified Status: Acute Plan Acute pancreatitis Most likely related to gallstone and bile duct obstruction Optimize pain management Antiemetic medication p.r.n. Start fluid resuscitation with lactated Ringer Start clear diet per GI Patient has no nausea vomiting, still has abdomen pain, start a renal diet today Gallstone with gallbladder distension, common bile duct dilatation, elevated liver enzymes CT ultrasound shows gallstone, gallbladder distension Mild bile duct dilatation Patient may pass gallstone from common bile duct Consult GI and general surgeon for evaluation treatment Started Unasyn IV possible acute cholecystitis, but stopped soon per surgeon recommendation Patient afebrile Hypokalemia Start lactated Ringer IV Follow-up BMP Potassium 3.0 today Start potassium chloride 40 mEq b.i.d. p.o. Anxiety Ativan IV p.r.n. Subjective Date/time seen: 05/31/23 09:27 Interval history: I saw exam patient today. Patient denies nausea of vomiting intermittently, but patient still has severe abdomen pain, needs frequent narcotic medication. Started clear diet today Exam Narrative: GENERAL: Pleasant, in no acute distress. Well-nourished. - EYES: EOMI. Anicteric. - HENT: Moist mucous membranes. - LUNGS: Clear to auscultation bilaterally, no wheezing, rhonchi, or rales. - CARDIOVASCULAR: Regular rate and rhythm. No murmur. No JVD. - ABDOMEN: Soft, mid abdomen tender and non-distended. No rebound no palpable masses. - EXTREMITIES: No edema. Peripheral pulses 2+. Non-tender. - NEUROLOGIC: No focal neurological deficits. CN II-XII grossly intact. - PSYCHIATRIC: Awake, Alert and oriented x 3. Appropriate mood and affect. - SKIN: No rashes or lesions. Warm. - LYMPH: No cervical lymphadenopathy. Objective Data Vital Signs Vital Signs: Vital Signs - 24 hr 05/30/23 14:00 05/30/23 20:35 05/30/23 20:00 Temperature 98.0 F 97.8 F Pulse Rate 62 79 79 Respiratory Rate 16 16 16 Blood Pressure 114/75 121/74 Pulse Oximetry 98 100 100 Oxygen Delivery Room Air 05/31/23 05:05 Temperature 97.2 F L Pulse Rate 83 Respiratory Rate 14 Blood Pressure 119/82 Pulse Oximetry 99 Oxygen Delivery Intake/Output Intake/Output: Intake & Output 05/28/23 05/29/23 05/30/23 05/31/23 23:59 23:59 23:59 23:59 Intake Total 1520 4350 1650 Balance 1520 4350 1650 Meds/Results Medications: Active Medications Generic Name Dose Route Start Last Admin Trade Name Freq PRN Reason Stop Dose Admin Hydrocodone Bitart/Acetaminophen 1 tab 05/29/23 13:55 05/31/23 02:57 Hydrocodone/Acetaminophen (*Crx) 5-325 Mg Tablet PO 1 tab Q4H PRN Administration Pain Rated 4-6 Heparin Sodium (Porcine) 5,000 units 05/29/23 21:00 05/31/23 08:16 Heparin Sodium 5,000 Units/Ml Vial SUB-Q 5,000 units Q12HR CIARA Administration Lactated Ringer's 1,000 mls @ 80 mls/hr 05/29/23 09:05 05/31/23 02:55 Lr - Lactated Ringers Iv IV CONT 80 mls/hr .[id number] CIARA Administration Morphine Sulfate 4 mg 05/29/23 14:01 05/30/23 20:00 Morphine Sulfate (*Crx) 4 Mg/Ml Inj IV PUSH 4 mg Q4H PRN Administration Pain Rated 7-10 Naloxone HCl 0.1 mg 05/29/23 09:04 Naloxone Hcl 0.4 Mg/Ml Vial IV PUSH Q2M PRN Opiate Reversal Ondansetron HCl 4 mg 05/29/23 09:04 05/30/23 13:36 Ondansetron Inj 4 M
[2023-05-31 10:27] LABS: Basophils Percent Auto 0.4 % (0.2-1.2); Eosinophils Absolute Auto 0.2 K/mm3 (0-0.3); Eosinophils Percent Auto 2.1 % (0-4.4); Hematocrit 39.1 % (37.0-47.0); Hemoglobin 12.4 g/dL (12.0-15.0); Immature Granulocyte Absolute 0.01 K/mm3 (0.00-0.031); Immature Granulocyte Percent A 0.1 % (0-0.5); Lymphocytes Absolute Auto 2.09 K/mm3 (0.9-3.2); Lymphocytes Percent Auto 29.8 % (18.3-44.2); Mean Corpuscular HGB Conc 31.7 g/dl (32-36); Mean Corpuscular Hemoglobin 29.5 pg (26-34); Mean Corpuscular Volume 93.1 fl (80-100); Mean Platelet Volume 11.1 fl (7.4-10.4); Monocytes Absolute Auto 0.4 K/mm3 (0.1-0.6); Monocytes Percent Auto 5.7 % (2.6-8.5); Neutrophils Absolute Auto 4.3 K/mm3 (1.3-6.7); Neutrophils Percent Auto 61.9 % (45.5-73.1); Platelet Count Result 216 k/mm3 (150-375); Red Cell Distribution Width 13.2 % (11.5-14.5)
[2023-05-31] MEDS: ONDANSETRON INJ 4 MG/2 ML VIAL IV PUSH (10:31)
[2023-05-31 10:43] LABS: Anion Gap 13 mmol/L (8-16); Blood Urea Nitrogen 3 mg/dL (7-17); Calcium 9.4 mg/dL (8.4-10.2); Carbon Dioxide 25 mmol/L (22-30); Chloride 105 mmol/L (98-107); Estimated CRCL calculation 129 ml/min; Estimated Glomerular Filt Rate > 60; Glucose 97 mg/dL (65-110); Sodium 143 mmol/L (137-145)
[2023-05-31 10:44] LABS: Alanine Aminotransferase 220 U/L (6-35); Albumin Level 4.5 g/dL (3.5-5.1); Alkaline Phosphatase 174 U/L (38-126); Aspartate Amino Transferase 63 U/L (14-36); Bilirubin,Total 0.9 mg/dL (0.2-1.3); Lipase 87 U/L (23-300)
[2023-05-31] MEDS: POTASSIUM CHLORIDE 20 MEQ ER TABLET 40 MEQ PO ×2 (11:43→16:53)
[2023-05-31] MEDS: MORPHINE SULFATE (*CRX) 4 MG/ML INJ IV PUSH ×2 (12:25→21:21)
[2023-05-31 15:28] VITALS: BP 130/76; PULSE 70; RESP 16; TEMP 36.9; O2SAT 100
[2023-05-31 21:29] VITALS: BP 120/78; PULSE 77; RESP 18; TEMP 36.6; O2SAT 100
[2023-06-01] MEDS: LACTATED RINGERS 1,000 ML 80 ML IV CONT (03:52)
[2023-06-01 06:00] VITALS: BP 124/85; PULSE 81; RESP 18; TEMP 36.6; O2SAT 100
--- NOTE | 2023-06-01 08:31 | PM.IMPN ---
Progress Note: A&P Assessment and Plan (1) Acute pancreatitis: Code(s): K85.90 - Acute pancreatitis without necrosis or infection, unspecified Status: Deleted (2) Gallstone: Code(s): K80.20 - Calculus of gallbladder without cholecystitis without obstruction Status: Deleted (3) Common bile duct dilatation: Code(s): K83.8 - Other specified diseases of biliary tract Status: Deleted (4) Elevated liver enzymes: Code(s): R74.8 - Abnormal levels of other serum enzymes Status: Deleted (5) Anxiety: Code(s): F41.9 - Anxiety disorder, unspecified Status: Acute Plan Acute pancreatitis Most likely related to gallstone and bile duct obstruction Optimize pain management Antiemetic medication p.r.n. Start fluid resuscitation with lactated Ringer advanced to regular diet per GI Patient has no nausea vomiting Gallstone with gallbladder distension, common bile duct dilatation, elevated liver enzymes CT ultrasound shows gallstone, gallbladder distension Mild bile duct dilatation Patient may pass gallstone from common bile duct Consult GI and general surgeon for evaluation treatment Started Unasyn IV possible acute cholecystitis, but stopped soon per surgeon recommendation Patient afebrile Hypokalemia, Start lactated Ringer IV Follow-up BMP Potassium 3.0 05/31 Start potassium chloride 40 mEq b.i.d. p.o. 06/01 corrected Anxiety Ativan IV p.r.n. resolves Subjective Date/time seen: 06/01/23 08:31 Interval history: I saw exam patient today. Patient denies nausea of vomiting intermittently, but patient still has abdomen pain, well controlled by narcotic medication. tolerate regular diet today Exam Narrative: GENERAL: Pleasant, in no acute distress. Well-nourished. - EYES: EOMI. Anicteric. - HENT: Moist mucous membranes. - LUNGS: Clear to auscultation bilaterally, no wheezing, rhonchi, or rales. - CARDIOVASCULAR: Regular rate and rhythm. No murmur. No JVD. - ABDOMEN: Soft, mid abdomen tender and non-distended. No rebound no palpable masses. - EXTREMITIES: No edema. Peripheral pulses 2+. Non-tender. - NEUROLOGIC: No focal neurological deficits. CN II-XII grossly intact. - PSYCHIATRIC: Awake, Alert and oriented x 3. Appropriate mood and affect. - SKIN: No rashes or lesions. Warm. - LYMPH: No cervical lymphadenopathy. Objective Data Vital Signs Vital Signs: Vital Signs - 24 hr 05/31/23 15:28 05/31/23 21:29 05/31/23 20:00 Temperature 98.4 F 97.9 F Pulse Rate 70 77 Respiratory Rate 16 18 Blood Pressure 130/76 120/78 Pulse Oximetry 100 100 Oxygen Delivery Room Air 06/01/23 06:00 Temperature 98 F Pulse Rate 81 Respiratory Rate 18 Blood Pressure 124/85 Pulse Oximetry 100 Oxygen Delivery Intake/Output Intake/Output: Intake & Output 05/29/23 05/30/23 05/31/23 06/01/23 23:59 23:59 23:59 23:59 Intake Total 1520 4350 4390 1500 Balance 1520 4350 4390 1500 Meds/Results Medications: Active Medications Generic Name Dose Route Start Last Admin Trade Name Freq PRN Reason Stop Dose Admin Hydrocodone Bitart/Acetaminophen 1 tab 05/29/23 13:55 05/31/23 22:27 Hydrocodone/Acetaminophen (*Crx) 5-325 Mg Tablet PO 1 tab Q4H PRN Administration Pain Rated 4-6 Heparin Sodium (Porcine) 5,000 units 05/29/23 21:00 05/31/23 20:22 Heparin Sodium 5,000 Units/Ml Vial SUB-Q 5,000 units Q12HR CIARA Administration Lactated Ringer's 1,000 mls @ 80 mls/hr 05/29/23 09:05 06/01/23 03:52 Lr - Lactated Ringers Iv IV CONT 80 mls/hr .[id number] CIARA Administration Naloxone HCl 0.1 mg 05/29/23 09:04 Naloxone Hcl 0.4 Mg/Ml Vial IV PUSH Q2M PRN Opiate Reversal Ondansetron HCl 4 mg 05/29/23 09:04 05/31/23 10:31 Ondansetron Inj 4 Mg/2 Ml Vial IV PUSH 4 mg Q6H PRN Administration Nausea And Vomiting Potassium Chloride 40 meq 05/31/23 17:00 05/31/23 16:53 Potassium Chloride 20 Meq
[2023-06-01 09:15] LABS: Basophils Percent Auto 0.7 % (0.2-1.2); Eosinophils Absolute Auto 0.1 K/mm3 (0-0.3); Eosinophils Percent Auto 2.3 % (0-4.4); Hematocrit 38.8 % (37.0-47.0); Hemoglobin 12.4 g/dL (12.0-15.0); Immature Granulocyte Absolute 0.01 K/mm3 (0.00-0.031); Immature Granulocyte Percent A 0.2 % (0-0.5); Lymphocytes Absolute Auto 1.54 K/mm3 (0.9-3.2); Lymphocytes Percent Auto 27.6 % (18.3-44.2); Mean Corpuscular Hemoglobin 29.8 pg (26-34); Mean Corpuscular Volume 93.3 fl (80-100); Mean Platelet Volume 11.2 fl (7.4-10.4); Monocytes Absolute Auto 0.3 K/mm3 (0.1-0.6); Monocytes Percent Auto 5.4 % (2.6-8.5); Neutrophils Absolute Auto 3.6 K/mm3 (1.3-6.7); Neutrophils Percent Auto 63.8 % (45.5-73.1); Platelet Count Result 230 k/mm3 (150-375); Red Blood Count 4.16 M/mm3 (4.2-5.4); Red Cell Distribution Width 13.1 % (11.5-14.5); White Blood Count 5.6 K/mm3 (4.5-10.0)
[2023-06-01 09:26] LABS: Anion Gap 8 mmol/L (8-16); Blood Urea Nitrogen 4 mg/dL (7-17); Calcium 9.5 mg/dL (8.4-10.2); Carbon Dioxide 27 mmol/L (22-30); Chloride 105 mmol/L (98-107); Estimated CRCL calculation 152 ml/min; Estimated Glomerular Filt Rate > 60; Glucose 91 mg/dL (65-110); Magnesium 1.8 mg/dL (1.6-2.3); Phosphorus 4.1 mg/dL (2.5-4.5); Potassium 3.9 mmol/L (3.4-5.0); Sodium 140 mmol/L (137-145)
--- NOTE | 2023-06-01 11:17 | PM.DS ---
DS: Admitting Diagnosis Discharge Date 06/01/23 Admitting Diagnosis (1) Acute pancreatitis: ?Code(s): K85.90 - Acute pancreatitis without necrosis or infection, unspecified ?Status:?Deleted (2) Gallstone: ?Code(s): K80.20 - Calculus of gallbladder without cholecystitis without obstruction ?Status:?Deleted (3) Common bile duct dilatation: ?Code(s): K83.8 - Other specified diseases of biliary tract ?Status:?Deleted (4) Elevated liver enzymes: ?Code(s): R74.8 - Abnormal levels of other serum enzymes ?Status:?Deleted (5) Anxiety: ?Code(s): F41.9 - Anxiety disorder, unspecified ?Status:?Acute DS: Discharge Diagnosis Discharge Diagnosis (1) Acute pancreatitis: Code(s): K85.90 - Acute pancreatitis without necrosis or infection, unspecified Status: Deleted (2) Gallstone: Code(s): K80.20 - Calculus of gallbladder without cholecystitis without obstruction Status: Deleted (3) Common bile duct dilatation: Code(s): K83.8 - Other specified diseases of biliary tract Status: Deleted (4) Elevated liver enzymes: Code(s): R74.8 - Abnormal levels of other serum enzymes Status: Deleted (5) Anxiety: Code(s): F41.9 - Anxiety disorder, unspecified Status: Acute DS: Summary Hospital Course Hospital Course: 22 years old lady with history of anxiety, present ED with a chief complaint of chest pain in past 2 days.? Patient has been having intermittent right upper quadrant pain, epigastric pain since Friday, associated with nausea vomiting.? Patient denies diarrhea, chills, fever, and patient also denies chest pain shortness breast dysuria.? Patient came to ED for evaluation, in the ED, patient was found have s elevated bilirubin of 3.4 AST and ALT were elevated at 291 and 326 alk phos was 183.? Lipase is elevated at 3977.? CTA of chest abdomen pelvis shows no PE but mild?intrahepatic and extra hepatic biliary dilatation and gallstone.? ER physician consulted general surgeon and GI.? We admit patient for further evaluation and management the following medical issues have been addressed during hospitalization Acute pancreatitis Most likely related to gallstone and bile duct obstruction Optimize pain management Antiemetic medication p.r.n. Start fluid resuscitation with lactated Ringer advanced to regular diet per GI Patient has no nausea vomiting Gallstone with gallbladder distension, common bile duct dilatation, elevated liver enzymes CT ultrasound shows gallstone, gallbladder distension Mild bile duct dilatation Patient may pass gallstone from common bile duct Consult GI and general surgeon for evaluation treatment Started Unasyn IV possible acute cholecystitis, but stopped soon per surgeon recommendation Patient afebrile Hypokalemia, Start lactated Ringer IV Follow-up BMP Potassium 3.0 05/31 Start potassium chloride 40 mEq b.i.d. p.o. 06/01 corrected Anxiety Ativan IV p.r.n. resolves Time Spent with Patient Time attestation: Total time spent providing and/or coordinating discharge services: Exam Narrative: GENERAL: Pleasant, in no acute distress. Well-nourished. - EYES: EOMI. Anicteric. - HENT: Moist mucous membranes. - LUNGS: Clear to auscultation bilaterally, no wheezing, rhonchi, or rales. - CARDIOVASCULAR: Regular rate and rhythm. No murmur. No JVD. - ABDOMEN: Soft, mid abdomen tender and non-distended. No rebound no palpable masses. - EXTREMITIES: No edema. Peripheral pulses 2+. Non-tender. - NEUROLOGIC: No focal neurological deficits. CN II-XII grossly intact. - PSYCHIATRIC: Awake, Alert and oriented x 3. Appropriate mood and affect. - SKIN: No rashes or lesions. Warm. - LYMPH: No cervical lymphadenopathy. DS: Data Data Completed and Pending Labs on day of discharge: Labs from last 24 hours 06/01/23 08:49 WBC 5.6 RBC 4.16 L Hgb 12.4 Hct 38.8 MCV 93.3 MCH 29.8 M
--- NOTE | 2023-06-02 18:35 | PC.NURSE ---
RN opened this chart because patient called stating she cannot get her hydrocodone filled because it needs to be electronically sent. RN explained that the script was printed and that she will have to give that to [facility] in order for them to fill the prescription. Patient stated [facility] told me it has to be electronically sent RN asked patient if she could speak with the pharmacist. Patient hung up on RN.
== END 2023-06-01 12:08 | disposition home or self-care (01) | DRG 282 ==
LOC: ANHED 07:45 → ANH3MED 16:07 → ANH3MEDSUR 06-03 10:38
PROVIDERS: Emergency Medicine; Internal Medicine Gastroenterology; Nurse Practitioner Family; Admitting Provider Hospitalist; Emergency Provider Emergency Medicine; PCP Family Medicine; Visit Provider Hospitalist
DX: K85.10 Biliary acute pancreatitis without necrosis or infection (principal); E87.6 Hypokalemia; F41.9 Anxiety disorder, unspecified
CPT/HCPCS: 36415; 71045; 71275; 74177; 74183; 76376; 76705; 80048; 80053; 80076; 81025; 83690; 83735; 83880; 84100; 84484; 85025; 85380; 85610; 85730; 93005; 96360; 96361; 96365; 96366; 96375; 96376; 99285; A9270; A9577; G0378; G0379; J1644; J1885; J2060; J2270; J2405; J3480; J7040; J7120; Q9967

== ENCOUNTER 2023-06-02 02:22 | Emergency (ER) | payer OTHER, SELFPAY ==
--- NOTE | ~2023-06-02 | CT_ITS ---
CT of the Abdomen and Pelvis: Indication: Abdominal pain Technique: 2.5 mm axial scans were obtained through the abdomen and pelvis following intravenous adm inistration of 100 cc of Omnipaque 350. Dose reduction technique was used on this scan by utilizing a utomated exposure control and iterative reconstruction technique. The dose-length product (DLP) was 6 75.78 mGy-cm. Findings: Scans through the lung bases are unremarkable. The liver, spleen, pancreas, adrenals and kidneys are within normal limits. Gallbladder is contracted with a tiny calcified gallstone present. No evidence of aortic aneurysm. No lymphadenopathy. No bowel obstruction or bowel wall thickening. There is no evidence to suggest acute appendicitis. Images through the pelvis were performed. Urinary bladder unremarkable. No adnexal mass seen. There i s trace free fluid in the pelvis. Impression: Tiny gallstone. Trace free fluid in the pelvis. Reviewed, dictated and finalized at [facility]. MINER Impression: Tiny gallstone. Trace free fluid in the pelvis.
[2023-06-02 02:23] VITALS: PULSE 95; RESP 20; TEMP 36.5; O2SAT 100
[2023-06-02 02:30] VITALS: BP 132/72; PULSE 85; RESP 13; O2SAT 100
[2023-06-02 02:43] LABS: Basophils Percent Auto 0.4 % (0.2-1.2); Eosinophils Absolute Auto 0.1 K/mm3 (0-0.3); Eosinophils Percent Auto 1.4 % (0-4.4); Hematocrit 37.1 % (37.0-47.0); Immature Granulocyte Absolute 0.02 K/mm3 (0.00-0.031); Immature Granulocyte Percent A 0.2 % (0-0.5); Lymphocytes Absolute Auto 2.01 K/mm3 (0.9-3.2); Lymphocytes Percent Auto 23.8 % (18.3-44.2); Mean Corpuscular HGB Conc 32.3 g/dl (32-36); Mean Corpuscular Hemoglobin 29.3 pg (26-34); Mean Corpuscular Volume 90.7 fl (80-100); Mean Platelet Volume 11.4 fl (7.4-10.4); Monocytes Absolute Auto 0.4 K/mm3 (0.1-0.6); Monocytes Percent Auto 5.1 % (2.6-8.5); Neutrophils Absolute Auto 5.8 K/mm3 (1.3-6.7); Neutrophils Percent Auto 69.1 % (45.5-73.1); Platelet Count Result 299 k/mm3 (150-375); Red Blood Count 4.09 M/mm3 (4.2-5.4); Red Cell Distribution Width 12.9 % (11.5-14.5); White Blood Count 8.4 K/mm3 (4.5-10.0)
[2023-06-02] MEDS: ONDANSETRON INJ 4 MG/2 ML VIAL IV PUSH (02:44)
[2023-06-02] MEDS: MORPHINE SULFATE (*CRX) 4 MG/ML INJ IV PUSH (02:44)
[2023-06-02] MEDS: SODIUM CHLORIDE 0.9% IV 1,000 ML 999 ML IV CONT (02:44)
--- NOTE | 2023-06-02 02:55 | ED.GENADULT ---
HPI - General Adult General Chief complaint: Abdominal Pain Stated complaint: ABD PAIN Time Seen by Provider: 06/02/23 02:29 History of Present Illness HPI narrative: I patient is a 22-year-old female who presents the emergency department with chief complaint of abdominal pain. Patient reports that she was in the hospital diagnosed with pancreatitis and cholelithiasis and is scheduled to have a cholecystectomy on Friday patient states she left the hospital today and was unable to get her medications filled because the pharmacy was closed patient reports she had some chicken soup broth whenever she got home which is what she has been consuming for nutrition Related Data Home Medications Medication Instructions Recorded Confirmed aripiprazole 2 mg tablet 2 mg PO DAILY 05/29/23 05/29/23 Allergies Allergy/AdvReac Type Severity Reaction Status Date / Time No Known Allergies Allergy Verified 06/02/23 02:31 Review of Systems Review of Systems: A 10 system review of systems was completed on the patient and is negative except for what is stated in the HPI. Nursing and ancillary documentation was reviewed. PMFSH Past Medical History Medical History Anxiety H/O pre-eclampsia Surgical History Surgical History H/O section History of incision and drainage 04/28/23 L bartholin's gland abscess I&D Social History Social History Smoking status: Never smoker Alcohol intake: never Substance use: never Lack of Transportation: No Lack of Food: Never True Current Housing: Decline to Answer Concerned About Future Housing: Decline to Answer Difficulty Paying Gas/Electric Bills: Decline to Answer Difficulty Paying for Meds: Decline to Answer Currently Unemployed: Decline to Answer Education: Decline to Answer Difficulty w/ Childcare or Family Care: Decline to Answer Living arrangements: with family Occupation/Education: occupation Spiritual care concerns: No Exam Narrative: GENERAL: Well-appearing, well-nourished, and in mild acute pain distress. HEAD: Normocephalic, atraumatic. EYES: PERRLA and EOMI. ENT: Nares clear, no rhinorrhea or epistaxis. Mucous membranes moist. NECK: Supple. CHEST: Clear to auscultation. No respiratory distress. HEART: Regular rate and rhythm. No murmur heard. Normal peripheral pulses. ABDOMEN: Soft, nontender, nondistended, normal active bowel sounds. EXTREMITIES: Normal range of motion. No edema. SKIN: Warm, dry, no rash. NEURO: No focal deficits. Alert and oriented x3. PSYCH: Normal mood and affect. Course Vital Signs Vital signs: Vital Signs Temperature 36.5 C 06/02/23 02:23 Pulse Rate 95 06/02/23 02:23 Respiratory Rate 20 06/02/23 02:23 Pulse Oximetry 100 06/02/23 02:23 Oxygen Delivery Room Air 06/02/23 02:23 Temperature 36.5 C 06/02/23 02:23 Pulse Rate 86 06/02/23 05:58 Respiratory Rate 16 06/02/23 05:58 Blood Pressure 124/79 06/02/23 05:58 Pulse Oximetry 97 06/02/23 05:58 Oxygen Delivery Room Air 06/02/23 02:23 Medical Decision Making [facility] Narrative Medical decision making narrative: Differential diagnosis includes pancreatitis, biliary colic, cholecystitis, choledocholithiasis. Patient did have elevated AST and ALT but normal bilirubin. The patient's lipase is actually come down to 125 CT scan of the abdomen pelvis showed no acute intra-abdominal pathology and was a contracted gallbladder with a stone but no evidence of acute cholecystitis Patient received IV fluids and pain medications is feeling much better the patient be discharged home on a clear liquid diet and should avoid any fatty or greasy foods Vital Signs Vital Signs: Vital Signs Temperature 36.5 C 06/02/23 02:23 Pulse Ra
[2023-06-02 02:58] LABS: Appearance Urine Clear (Clear); Bacteria Urine None Seen /hpf; Bilirubin Urine Negative (Negative); Blood Urine Negative (Negative); Color Urine Yellow (Yellow); Glucose Urine UA Negative (Negative); Ketones Urine Negative (Negative); Leukocyte Esterase Ur 2+ LEU/UL (Negative); Nitrate Urine Negative (Negative); Non Pathogenic Casts 0-2; Protein Urine Negative (Negative); RBC Urine 0-2 /hpf (0-2); Specific Grav Ur 1.016 (1.001-1.035); Squamous Epithelial Cell Urine Occasional /hpf (Few); pH Urine 8.5 (5.0-9.0)
[2023-06-02 03:02] LABS: Add Urine Microscopic? YES
[2023-06-02 03:35] LABS: Alanine Aminotransferase 179 U/L (6-35); Alkaline Phosphatase 182 U/L (38-126); Anion Gap 7 mmol/L (8-16); Aspartate Amino Transferase 165 U/L (14-36); Bilirubin,Total 1.1 mg/dL (0.2-1.3); Blood Urea Nitrogen 12 mg/dL (7-17); Calcium 9.2 mg/dL (8.4-10.2); Carbon Dioxide 27 mmol/L (22-30); Chloride 107 mmol/L (98-107); Estimated Glomerular Filt Rate > 60; Glucose 78 mg/dL (65-110); Lipase 125 U/L (23-300); Potassium 3.7 mmol/L (3.4-5.0); Sodium 141 mmol/L (137-145)
[2023-06-02 04:11] VITALS: BP 134/81; PULSE 88; RESP 15; O2SAT 99
[2023-06-02 04:29] LABS: Pregnancy On Board Control Positive; Urine Pregnancy Test Negative
[2023-06-02 05:58] VITALS: BP 124/79; PULSE 86; RESP 16; O2SAT 97
== END 2023-06-02 06:11 | disposition home or self-care (01) ==
PROVIDERS: Emergency Provider Emergency Medicine; PCP Family Medicine
DX: K80.70 Calculus of gallbladder and bile duct without cholecystitis without obstruction (principal); F41.9 Anxiety disorder, unspecified
CPT/HCPCS: 36415; 74177; 80053; 81001; 81025; 83605; 83690; 85025; 87086; 87088; 96361; 96374; 96375; 99284; J2270; J2405; J7030; Q9967

== ENCOUNTER 2023-06-04 01:11 | Day surgery (SDC) | payer OTHER, SELFPAY ==
[2023-06-03 09:18] VITALS: BMI 29.7
--- NOTE | 2023-06-03 09:22 | PC.NURSE ---
Report to the Outpatient Waiting Room, entrance under the green pavilion located off [facility], at time 1200 on date 06/04/23. Planned Procedure Time: 1400. Time changes happen often and if your time is changed the preop area will call you the afternoon before. - You and your visitor will be asked to self-screen and do not enter if you have any COVID symptoms. - A mask is optional within the hospital at this time. Patients may have clear liquids (water, carbonated beverages, clear teas, apple juice) until 3 hours prior to surgery with a maximum of 20 ounces. - No food from midnight until time of surgery Take the following medications with a SIP of water the morning of surgery: ARIPIPRAZOLE, PAIN PILL/HYDROXYZINE/ATIVAN IF NEEDED DO NOT STOP ANY OF YOUR OTHER PRESCRIPTION MEDICATIONS PRIOR TO SURGERY ?EXCEPT THE FOLLOWING Medications to discontinue per physician: N/A Date to take last dose: N/A Please no make-up, nail yoruba, hairspray, perfume, deodorant, or body powder the day of surgery. No jewelry (including any body piercings) or valuables the day of surgery, leave them at home. Please take a shower or bath the night before, or the morning of, surgery with an antibacterial soap. Wear comfortable, loose fitting clothing. - Jewelry must be removed prior to entering the operating room. Rings and piercings that are not removed may be cut off. - The hospital will not accept responsibility for valuables. - Please leave all valuables, including medications, at home the day of surgery. If you are going home after surgery, a licensed gas truck driver must drive you home. - NO public transportation without another adult if you receive anesthesia. - We recommend that an adult stay with you for 24 hours following discharge. - We also recommend that you do not drive, make important decision, drink alcoholic beverages, or take any drugs that were not prescribed by your health care provider for at least 24 hours after your discharge time. Follow any additional instructions given to you from your surgeon. If you or anyone in your household have experienced Covid symptoms in the past week, please notify your surgeon or the nurse liaison at the phone number below for possible testing. Telephone instructions given to PT - TROY MIX and asked if any additional questions and then verbalized understanding. Patient advised to call surgeon office or pre surgery nurse liaison [phone] if any additional questions.
[2023-06-04] VITALS (8 sets, daily range): BP systolic 123–143; BP diastolic 74–87; PULSE 72–124; RESP 14–20; TEMP 36.1–37; O2SAT 93–98
[2023-06-04] MEDS: LACTATED RINGERS 1,000 ML 30 ML IV CONT ×2 (12:40→16:10)
[2023-06-04] MEDS: SCOPOLAMINE 1.5 MG PATCH TRANSDERM (13:04)
[2023-06-04] MEDS: ACETAMINOPHEN 500 MG TABLET 1000 MG PO (13:04)
[2023-06-04 13:08] LABS: Alanine Aminotransferase 113 U/L (6-35); Albumin Level 4.6 g/dL (3.5-5.1); Alkaline Phosphatase 147 U/L (38-126); Amylase 50 U/L (30-110); Aspartate Amino Transferase 32 U/L (14-36); Bilirubin,Total 0.9 mg/dL (0.2-1.3)
[2023-06-04] MEDS: KETOROLAC 15 MG/ML VIAL (*BKC) IV PUSH (13:09)
--- NOTE | 2023-06-04 14:22 | WPDANESEPPF ---
Anes - Initial Pre Proc Eval Procedure: Operation Date: 06/04/23 14:00 Proposed Procedures p Laparoscopic Cholecystectomy - Wagner Finley MD Date/Time: 06/04/23 14:22 Surgeon: Wagner Finley MD Pre Op Diagnosis: cholelithiasis Patient Data Age: 22 Gender: F Height: 1.64 m Weight: 81.8 kg Last Vital Signs Temp 37.0 C 06/04/23 13:01 Pulse 77 06/04/23 13:01 Resp 16 06/04/23 13:01 BP 123/78 06/04/23 13:01 Pulse Ox 97 06/04/23 13:01 O2 Del Method Room Air 06/04/23 13:01 Allergies Allergy/AdvReac Type Severity Reaction Status Date / Time No Known Allergies Allergy Verified 06/04/23 12:29 Home Medications Medication Instructions Recorded Confirmed Type hydroxyzine HCl 25 mg tablet 25 mg PO TID PRN anxiety #30 tabs 12/29/22 06/04/23 Rx lorazepam 1 mg tablet (Ativan) 1 mg PO TID PRN anxiety #21 tabs 05/28/23 06/04/23 Rx aripiprazole 2 mg tablet 2 mg PO DAILY 05/29/23 06/04/23 History hydrocodone 5 mg-acetaminophen 325 1 tablet PO Q6H PRN Pain Rated 4-6 06/01/23 06/04/23 Rx mg tablet #20 tabs ondansetron 4 mg disintegrating 4 mg PO Q6H PRN nausea and 06/01/23 06/04/23 Rx tablet vomiting #30 tabs Laboratory Tests 06/04/23 12:38 Total Bilirubin 0.9 mg/dL (0.2-1.3) Direct Bilirubin 0.0 mg/dL (0-0.3) AST 32 U/L (14-36) ALT 113 H U/L (6-35) Alkaline Phosphatase 147 H U/L (38-126) Total Protein 9.0 H g/dL (6.3-8.2) Albumin 4.6 g/dL (3.5-5.1) Amylase 50 U/L (30-110) Blood Type B Positive Antibody Screen Negative Patient hx anesthesia problems: none Family hx anesthesia problems: none Results Review: All pre-operative results and documents have been reviewed as part of the pre-operative evaluation. [facility] Past Medical History Medical History Anxiety H/O pre-eclampsia Surgical History Surgical History H/O section History of incision and drainage 04/28/23 L bartholin's gland abscess I&D Social History Social History Smoking status: Never smoker Alcohol intake: never Substance use: current Substance use type: marijuana Lack of Transportation: No Lack of Food: Never True Current Housing: Decline to Answer Concerned About Future Housing: Decline to Answer Difficulty Paying Gas/Electric Bills: Decline to Answer Difficulty Paying for Meds: Decline to Answer Currently Unemployed: Decline to Answer Education: Decline to Answer Difficulty w/ Childcare or Family Care: Decline to Answer Living arrangements: with family Occupation/Education: occupation Spiritual care concerns: No Anes - Eval Final PreProcedure Day of Procedure 06/04/23 14:22 Patient weight: obese Heart: regular rate and rhythm Lungs: clear to auscultation Airway: Mallampati scale class II Neurological: alert and oriented Last oral intake: >/= 8 hours ASA classification: II Emergent: no Anesthetic plan: proceed Anesthesia type and monitoring: general ETT and standard monitoring Results Review: All pre-operative results and documents have been reviewed as part of the pre-operative evaluation. Informed Consent: The patient's anesthetic plan and its attendant risks and benefits were discussed with the patient/family/POA. Questions were solicited and answers provided to the satisfaction of the patient/family/POA.
--- NOTE | 2023-06-04 14:24 | WPDHPUPDATE1 ---
History and Physical Update Update Date/Time: 06/04/23 14:24 Patient has had no further episodes of abdominal pain since discharge from the hospital. She is taken to surgery today for laparoscopic cholecystectomy due to her diagnosis of biliary pancreatitis as the cause of her recent admission. The procedure risks benefits and usual recovery were discussed. All questions were answered. She agrees to proceed. History and Physical has been reviewed, including an updated exam of the patient. There are NO changes in the patient's condition. Risks, benefits, and alternatives have been discussed and questions answered. Patient agrees to proceed with procedure.
[2023-06-04] MEDS: ceFAZolin 2 GM/D5W 50 ML 2 GM/50 ML BAG IVPB (14:43)
[2023-06-04] MEDS: BUPIVACAINE/EPINEPHRINE 0.5% 50 ML VIAL INFILTRATE (15:16)
--- NOTE | 2023-06-04 15:53 | P.OP_ITS ---
Procedure Note - Detailed Date of Procedure 06/04/23 Pre-op Diagnosis Biliary pancreatitis Post-op Diagnosis Same Procedure Performed Laparoscopic cholecystectomy Surgeon Wagner Finley MD Remediation Consultant Albert TURK Anesthesia General and Local Indications Patient is a 22-year-old woman who came to the hospital last week with severe epigastric abdominal pain. Evaluation showed evidence of acute pancreatitis as well as gallstones. The common bile duct stone passed on its own. MRCP did not show any stones in the bile duct. Patient was feeling much better and tolerating oral intake. It was the weekend when this occurred. She was discharged and is taken back to surgery today as an outpatient for laparoscopic cholecystectomy. Findings Chronic inflammation and gallstones were noted. The cystic duct was somewhat dilated. Liver appeared normal. No other significant findings Description of Procedure Patient was taken to surgery and induced into general anesthesia. The abdomen is prepped and draped. Trocars were placed in the usual fashion using [employer] optical trocars in a 5 mm camera. Local was infiltrated prior to placement of each of the trocars. Once adequate insufflation had taken place, we then took down some omental adhesions to the gallbladder. The gallbladder was then decompressed with a laparoscopic aspirator. The cholecystotomy was closed with a Vicryl endoloop. The gallbladder was then retracted anterosuperiorly. Dissection in the cholecystohepatic triangle was carried out. There was a lot of chronic inflammation with fairly dense adhesions. The gallbladder was dissected off the liver and the cystic duct and cystic artery were carefully dissected. The gallbladder was dissected off the liver about 50% of its length. Critical view was achieved. I then securely clipped and divided the cystic artery and cystic duct. The gallbladder was then further dissected free of its peritoneal attachments to the liver. Once completely removed, it was placed in an Endo-Catch bag and retrieved through the 10 mm epigastric trocar site. We replaced this trocar and then reviewed the gallbladder fossa as well as the right upper quadrant. Irrigation and suctioning were carried out. Clips looked secure on the various structures. There was no evidence of bile leak or bleeding. We then evacuated CO2 and removed the trocar sleeves. Skin wounds were closed with subcuticular 4-0 Monocryl skin suture. The wounds were dressed with Exofin surgical adhesive. The patient was awakened and taken to recovery in good condition. Sponge and needle counts were correct x2. Estimated Blood Loss -5 Drains No Packing No Pathology Yes (Gallbladder) Complications No immediate complications Condition Stable Disposition PACU [facility] Billing Surgery - Charge Forward: Surgery Billing (Laparoscopic cholecystectomy)
[2023-06-04] MEDS: ONDANSETRON INJ 4 MG/2 ML VIAL IV PUSH (17:06)
[2023-06-04] MEDS: oxyCODONE HCL (*CRX) 5 MG TAB IR PO (17:07)
== END 2023-06-04 17:49 | disposition home or self-care (01) ==
PROVIDERS: PCP Family Medicine; Visit Provider Surgery
PROC: 0FT44ZZ Resection of Gallbladder, Percutaneous Endoscopic Approach (ICD-10-PCS; CPT 47562; principal; 2023-06-04 14:00)
DX: K80.10 Calculus of gallbladder with chronic cholecystitis without obstruction (principal); K85.10 Biliary acute pancreatitis without necrosis or infection; F41.9 Anxiety disorder, unspecified; F12.90 Cannabis use, unspecified, uncomplicated; Z79.891 Long term (current) use of opiate analgesic; E66.9 Obesity, unspecified; Z68.30 Body mass index [BMI] 30.0-30.9, adult
CPT/HCPCS: 47562; 36415; 80076; 82150; 86850; 86900; 86901; 88304; A9270; C1713; J0330; J0690; J1100; J1885; J2250; J2405; J2704; J3010; J7120

== ENCOUNTER 2024-02-07 00:53 | Emergency (ER) | payer SELFPAY ==
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
[2024-02-07 00:56] VITALS: BP 173/105; PULSE 105; RESP 20; TEMP 36.7; O2SAT 99
--- NOTE | 2024-02-07 04:59 | PC.NURSE ---
Eye kit placed at the bedside.
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
[2024-02-07] MEDS: ACETAMINOPHEN 500 MG TABLET 1000 MG PO (07:18)
[2024-02-07] MEDS: ATROPINE SULFATE 1% OPHTH SOLN 5 ML BOTTLE 1 DROP LEFT EYE (08:59)
== END 2024-02-07 09:03 | disposition home or self-care (01) ==
PROVIDERS: Emergency Provider Student in an Organized Health Care Education/Training Program; PCP Family Medicine
DX: S05.8X2A Other injuries of left eye and orbit, initial encounter (principal); H11.32 Conjunctival hemorrhage, left eye; H20.9 Unspecified iridocyclitis; F41.9 Anxiety disorder, unspecified; Z79.899 Other long term (current) drug therapy; Y04.0XXA Assault by unarmed brawl or fight, initial encounter
CPT/HCPCS: 70480; 99284; A9270

== ENCOUNTER 2024-04-09 13:19 | Emergency (ER) | payer SELFPAY ==
[2024-04-09 13:24] VITALS: BP 129/61; PULSE 92; RESP 14; TEMP 36.6; O2SAT 99
[2024-04-09 16:32] LABS: Add Urine Microscopic? YES; Appearance Urine Clear (Clear); Bacteria Urine 1+ /hpf; Bilirubin Urine Negative (Negative); Blood Urine Negative (Negative); Color Urine Yellow (Yellow); Glucose Urine UA Negative (Negative); Ketones Urine 1+ mg/dL (Negative); Leukocyte Esterase Ur Negative LEU/UL (Negative); Nitrate Urine Negative (Negative); Non Pathogenic Casts 0-2; Protein Urine Trace mg/dL (Negative); RBC Urine 0-2 /hpf (0-2); Specific Grav Ur 1.034 (1.001-1.035); Squamous Epithelial Cell Urine Moderate /hpf (Few); WBC Urine 0-5 /hpf (0-3)
--- NOTE | 2024-04-09 16:45 | ED.GENADULT ---
HPI - General Adult General Chief complaint: Unspecified Stated complaint: STD Testing Time Seen by Provider: 04/09/24 16:04 Source: patient Mode of arrival: ambulatory Limitations: no limitations History of Present Illness HPI narrative: this is a 23-year-old female that presents to the emergency department for STD check. Reports her partner has had abnormal penile discharge. She does not have any symptoms. Denies dysuria, abnormal discharge or rashes. Related Data Home Medications Medication Instructions Recorded Confirmed aripiprazole 2 mg tablet 2 mg PO DAILY 05/29/23 06/04/23 Allergies Allergy/AdvReac Type Severity Reaction Status Date / Time No Known Allergies Allergy Verified 06/04/23 12:29 Review of Systems Review of Systems: CONSTITUTIONAL: Denies fever GENITOURINARY: Denies dysuria or hematuria. SKIN: Denies rash All systems reviewed & are unremarkable except as noted in HPI and below PMFSH Past Medical History Medical History Anxiety H/O pre-eclampsia Surgical History Surgical History H/O section History of incision and drainage 04/28/23 L bartholin's gland abscess I&D Social History Social History (Updated 02/08/24 @ 12:21 by Ann Dee MD) Smoking status: Never smoker Alcohol intake: never Substance use: current Substance use type: marijuana Lack of Transportation: No Lack of Food: Never True Current Housing: Decline to Answer Concerned About Future Housing: Decline to Answer Difficulty Paying Gas/Electric Bills: Decline to Answer Difficulty Paying for Meds: Decline to Answer Currently Unemployed: Decline to Answer Education: Decline to Answer Difficulty w/ Childcare or Family Care: Decline to Answer Living arrangements: with family Occupation/Education: occupation 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 HEAD: Normocephalic, atraumatic. EYES: EOMI. EXTREMITIES: Normal range of motion. No edema. SKIN: Warm, dry, no rash. NEURO: No focal deficits. Alert and oriented x3. PSYCH: Normal mood and affect PELVIC: Normal external genitalia. Normal-appearing cervix. No abnormal discharge Course Course Emergency Course: Patient updated on workup and agrees with plan of care Vital Signs Vital signs: Vital Signs Temperature 97.9 F 04/09/24 13:24 Pulse Rate 92 04/09/24 13:24 Respiratory Rate 14 04/09/24 13:24 Blood Pressure 129/61 04/09/24 13:24 Pulse Oximetry 99 04/09/24 13:24 Oxygen Delivery Room Air 04/09/24 13:24 Temperature 97.9 F 04/09/24 13:24 Pulse Rate 92 04/09/24 13:24 Respiratory Rate 14 04/09/24 13:24 Blood Pressure 129/61 04/09/24 13:24 Pulse Oximetry 99 04/09/24 13:24 Oxygen Delivery Room Air 04/09/24 13:24 Medical Decision Making MDM Narrative Medical decision making narrative: patient presents to the emergency department for STD check. Her partner was currently experiencing symptoms. She is afebrile and nontoxic appearing. UA without evidence of infection. Trichomonas is positive. Chlamydia and gonorrhea are negative. Patient's partner tested positive for gonorrhea. They were both presumptively treated for this. They will also be treated for trichomoniasis. Patient was updated on her workup and agrees with plan of care. She is to follow-up with gynecology. She was given warnings to return to the ER Vital Signs Vital Signs: Vital Signs Temperature 97.9 F 04/09/24 13:24 Pulse Rate 92 04/09/24 13:24 Respiratory Rate 14 04/09/24 13:24 Blood Pressure 129/61 04/09/24 13:24 Pulse Oximetry 99 04/09/24 13:24 Oxygen Delivery Room Air 04/09/24 13:24 Tem
[2024-04-09 16:56] LABS: Pregnancy On Board Control Positive; Urine Pregnancy Test Negative
[2024-04-09 17:42] LABS: Trichomonas Vag PCR DETECTED (NOT DETECTE)
[2024-04-09 18:16] LABS: Chlamydia trachomatis NOT DETECTED (NOT DETECTE); Neisseria gonorrhoeae PCR NOT DETECTED (NOT DETECTE)
[2024-04-09] MEDS: cefTRIAXone 1 GM VIAL 0.5 GM IM (18:37)
[2024-04-09 19:00] VITALS: BP 137/82; PULSE 74; RESP 17; TEMP 36.8; O2SAT 100
[2024-04-10 22:44] LABS: Bacterial Vaginosis POSITIVE (NEGATIVE)
== END 2024-04-09 18:48 | disposition home or self-care (01) ==
PROVIDERS: Emergency Provider Physician Assistant; PCP Family Medicine
DX: A59.9 Trichomoniasis, unspecified (principal); F41.9 Anxiety disorder, unspecified
CPT/HCPCS: 81001; 81025; 81513; 87070; 87077; 87491; 87591; 87661; 96372; 99284; J0696

== ENCOUNTER 2024-04-27 23:00 | Emergency (ER) | payer SELFPAY ==
[2024-04-27 23:10] VITALS: BP 121/76; PULSE 85; RESP 16; TEMP 36.6; O2SAT 97
--- NOTE | 2024-04-28 01:20 | ED.FEMALEGU ---
HPI - Female Genitourinary General Chief complaint: Urogenital-Female Stated complaint: std Time Seen by Provider: 04/28/24 00:28 Source: patient Mode of arrival: ambulatory Limitations: no limitations History of Present Illness HPI Narrative: This is a 23 year old female that presents to the ER for test results. Was evaluated for STDs a couple of weeks ago. Treated with Rocephin for positive gonorrhea test in her partner and Metronidazole for positive trichomonas. Wondering about the rest of her results. Related Data Home Medications Medication Instructions Recorded Confirmed aripiprazole 2 mg tablet 2 mg PO DAILY 05/29/23 06/04/23 Allergies Allergy/AdvReac Type Severity Reaction Status Date / Time No Known Allergies Allergy Verified 06/04/23 12:29 Review of Systems Review of Systems: CONSTITUTIONAL: Denies fever GASTROINTESTINAL: Denies abdominal pain, nausea, vomiting GENITOURINARY: Denies dysuria or hematuria. SKIN: Denies rash All systems reviewed & are unremarkable except as noted in HPI and below PMFSH Past Medical History Medical History Anxiety H/O pre-eclampsia Surgical History Surgical History H/O section History of incision and drainage 04/28/23 L bartholin's gland abscess I&D Social History Social History (Updated 02/08/24 @ 12:21 by Ann Dee MD) Smoking status: Never smoker Alcohol intake: never Substance use: current Substance use type: marijuana Lack of Transportation: No Lack of Food: Never True Current Housing: Decline to Answer Concerned About Future Housing: Decline to Answer Difficulty Paying Gas/Electric Bills: Decline to Answer Difficulty Paying for Meds: Decline to Answer Currently Unemployed: Decline to Answer Education: Decline to Answer Difficulty w/ Childcare or Family Care: Decline to Answer Living arrangements: with family Occupation/Education: occupation 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 HEAD: Normocephalic, atraumatic. EYES: EOMI. CHEST: No respiratory distress. HEART: Regular rate EXTREMITIES: Normal range of motion. No edema. SKIN: Warm, dry, no rash. NEURO: No focal deficits. Alert and oriented x3. PSYCH: Normal mood and affect Course Course Emergency Course: Patient updated on her test results. Agrees with plan of care Vital Signs Vital signs: Vital Signs Temperature 97.8 F 04/27/24 23:10 Pulse Rate 85 04/27/24 23:10 Respiratory Rate 16 04/27/24 23:10 Blood Pressure 121/76 04/27/24 23:10 Pulse Oximetry 97 04/27/24 23:10 Temperature 97.8 F 04/27/24 23:10 Pulse Rate 85 04/27/24 23:10 Respiratory Rate 16 04/27/24 23:10 Blood Pressure 121/76 04/27/24 23:10 Pulse Oximetry 97 04/27/24 23:10 MDM - Female Genitourinary MDM Narrative Medical decision making narrative: Patient presents to the ER for test results. Was evaluated for STDs a couple of weeks ago. Treated with Rocephin for positive gonorrhea test in her partner and Metronidazole for positive trichomonas. Wondering about the rest of her results. Her general genital culture did come back positive for group B strep. Will be treated with oral antibiotics for this. She was given warnings to return to the ER Differential Diagnosis Differential diagnosis: Likely bacterial vaginosis, trichomoniasis, cervicitis, vaginitis and other (Gonorrhea, chlamydia) Medical Records Attestation: I reviewed the patient's medical records. Medical records narrative: Patient was treated for positive gonorrhea test her spouse. She was also treated for positive Trichomonas. General genital culture positive for group B strep Critical Care Ti
== END 2024-04-28 01:39 | disposition home or self-care (01) ==
PROVIDERS: Emergency Provider Physician Assistant; PCP Family Medicine
DX: A63.8 Other specified predominantly sexually transmitted diseases (principal); B95.1 Streptococcus, group B, as the cause of diseases classified elsewhere
CPT/HCPCS: 99283

== ENCOUNTER 2024-05-05 10:42 | Emergency (ER) | payer SELFPAY ==
[2024-05-05 10:57] VITALS: BP 134/90; PULSE 69; RESP 16; TEMP 36.6; O2SAT 99
--- NOTE | 2024-05-05 11:13 | ED.FEMALEGU ---
HPI - Female Genitourinary General Chief complaint: Urogenital-Female Stated complaint: I been expose to chlamydia Time Seen by Provider: 05/05/24 11:06 History of Present Illness HPI Narrative: 23-year-old female presents with vaginal itching and irritation for the last couple days. Patient states her partner notified her that he tested positive for chlamydia. Patient denies any other symptoms. Patient is requesting treatment Onset (ago): day(s) (2) Related Data Home Medications Medication Instructions Recorded Confirmed aripiprazole 2 mg tablet 2 mg PO DAILY 05/29/23 06/04/23 Allergies Allergy/AdvReac Type Severity Reaction Status Date / Time No Known Allergies Allergy Verified 06/04/23 12:29 Review of Systems Review of Systems: A 10 system review of systems was completed on the patient and is negative except for what is stated in the HPI. Nursing and ancillary documentation was reviewed. [facility] Past Medical History Medical History Anxiety H/O pre-eclampsia Surgical History Surgical History H/O section History of incision and drainage 04/28/23 L bartholin's gland abscess I&D Social History Social History (Updated 02/08/24 @ 12:21 by Ann Dee MD) Smoking status: Never smoker Alcohol intake: never Substance use: current Substance use type: marijuana Lack of Transportation: No Lack of Food: Never True Current Housing: Decline to Answer Concerned About Future Housing: Decline to Answer Difficulty Paying Gas/Electric Bills: Decline to Answer Difficulty Paying for Meds: Decline to Answer Currently Unemployed: Decline to Answer Education: Decline to Answer Difficulty w/ Childcare or Family Care: Decline to Answer Living arrangements: with family Occupation/Education: occupation 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 HEAD: Normocephalic, atraumatic. EYES: PERRLA and EOMI. ENT: Nares clear, no rhinorrhea or epistaxis. Mucous membranes moist. NECK: Supple. CHEST: Clear to auscultation. No respiratory distress. HEART: Regular rate and rhythm. No murmur heard. Normal peripheral pulses. ABDOMEN: Soft, nontender, nondistended, normal active bowel sounds. EXTREMITIES: Normal range of motion. No edema. SKIN: Warm, dry, no rash. NEURO: No focal deficits. Alert and oriented x3. PSYCH: Normal mood and affect. Patient is not a pelvic at this time and will follow-up with OBGYN Course Course Emergency Course: Will test for gonorrhea chlamydia, UTI, urine Vital Signs Vital signs: Vital Signs Temperature 36.6 C 05/05/24 10:57 Pulse Rate 69 05/05/24 10:57 Respiratory Rate 16 05/05/24 10:57 Blood Pressure 134/90 05/05/24 10:57 Pulse Oximetry 99 05/05/24 10:57 Oxygen Delivery Room Air 05/05/24 10:57 Temperature 36.6 C 05/05/24 10:57 Pulse Rate 69 05/05/24 10:57 Respiratory Rate 16 05/05/24 10:57 Blood Pressure 134/90 05/05/24 10:57 Pulse Oximetry 99 05/05/24 10:57 Oxygen Delivery Room Air 05/05/24 10:57 MDM - Female Genitourinary MDM Narrative Medical decision making narrative: Will treat with p.o. azithromycin and IM Rocephin. Urine is negative. Lab Data Labs: Lab Results 05/05/24 05/05/24 Range/Units 11:03 11:15 Urine Color Yellow (Yellow) Urine Appearance Turbid H (Clear) Urine pH 7.0 (5.0-9.0) Ur Specific [place] 1.025 (1.001-1.035) Urine Protein Negative (Negative) mg/dL Urine Glucose (UA) Negative (Negative) mg/dL Urine Ketones Negative (Negative) mg/dL Ur Blood (Man) Negative (Negative) Urine Nitrate Negative (Negative) Urine Bilirubin Neg
[2024-05-05 11:17] LABS: BEDSIDEPREGUCG Negative (Negative)
[2024-05-05 11:27] LABS: Add Urine Microscopic? YES; Appearance Urine Turbid (Clear); Bacteria Urine None Seen /hpf; Bilirubin Urine Negative (Negative); Blood Urine Negative (Negative); Color Urine Yellow (Yellow); Glucose Urine UA Negative (Negative); Ketones Urine Negative (Negative); Leukocyte Esterase Ur Negative LEU/UL (Negative); Need Manual Microscopic Reviewed; Nitrate Urine Negative (Negative); Non Pathogenic Casts 0-2; Protein Urine Negative (Negative); RBC Urine 21-50 /hpf (0-2); Specific Grav Ur 1.025 (1.001-1.035); Squamous Epithelial Cell Urine Occasional /hpf (Few); WBC Urine 0-5 /hpf (0-3)
[2024-05-05] MEDS: AZITHROMYCIN 250 MG TABLET 1000 MG PO (11:57)
[2024-05-05] MEDS: LIDOCAINE HCL 2% LOCAL INJ 20 ML VIAL (11:57)
[2024-05-05] MEDS: cefTRIAXone 250 MG VIAL IM (11:57)
[2024-05-05 12:01] VITALS: BP 128/85; PULSE 60; RESP 15; O2SAT 100
[2024-05-05 12:49] LABS: Chlamydia trachomatis NOT DETECTED (NOT DETECTE); Neisseria gonorrhoeae PCR NOT DETECTED (NOT DETECTE)
[2024-05-05 14:33] LABS: Pregnancy On Board Control Positive; Urine Pregnancy Test Negative
== END 2024-05-05 12:02 | disposition home or self-care (01) ==
PROVIDERS: Emergency Medicine; Emergency Provider Nurse Practitioner Family; PCP Family Medicine
DX: L29.2 Pruritus vulvae (principal); Z20.2 Contact with and (suspected) exposure to infections with a predominantly sexual mode of transmission; F41.9 Anxiety disorder, unspecified; Z79.899 Other long term (current) drug therapy
CPT/HCPCS: 81001; 81025; 87491; 87591; 96372; 99284; A9270; J0696; J2003

== ENCOUNTER 2024-09-04 09:37 | Emergency (ER) | payer SELFPAY ==
[2024-09-04 09:47] VITALS: BP 133/78; PULSE 133; RESP 18; TEMP 37.7; O2SAT 96
[2024-09-04 09:50] VITALS: PULSE 133; RESP 18; O2SAT 96
--- NOTE | 2024-09-04 09:56 | ED_ITS ---
HPI - URI/Sore Throat General Chief Complaint: Upper Respiratory Infection Stated Complaint: Sore Throat/Headache Time Seen by Provider: 09/04/24 09:56 Source: patient, RN notes reviewed and old records reviewed Mode of arrival: ambulatory Limitations: no limitations History of Present Illness HPI Narrative: 23-year-old female presents to the [facility] with complaints of sore throat, fatigue, headache and cough that started yesterday. Has taken Robitussin and Mucinex. Onset (ago): day(s) (1) Treatments prior to arrival: cold medicine Related Data Home Medications ?Medication ?Instructions ?Recorded ?Confirmed ?Last Taken ?Type aripiprazole 2 mg tablet 2 mg PO DAILY 05/29/23 06/04/23 04/25/24 History Allergies Allergy/AdvReac Type Severity Reaction Status Date / Time No Known Allergies Allergy Verified 09/04/24 09:47 Review of Systems Review of Systems: All systems reviewed & are unremarkable except as noted in HPI and below Constitutional: Constitutional: Reports as per HPI, Reports body ache(s), Reports chills, Reports fatigue, Reports fever(s) and Reports headache(s) ENT: Reports system reviewed and no additional complaints, except as documented Cardiovascular: Cardiovascular: Reports no additional cardiovascular complaints, Denies chest pain and Denies dyspnea Respiratory: Respiratory: Reports as per HPI, Denies chest congestion, Reports cough and Denies dyspnea Musculoskeletal: Musculoskeletal: Reports no additional musculoskeletal complaints Integumentary/Breasts: Skin/Breast: Reports system reviewed and no additional complaints, except as docu PMFSH Past Medical History Medical History Anxiety H/O pre-eclampsia Surgical History Surgical History History of incision and drainage 04/28/23 L bartholin's gland abscess I&D H/O section Social History Social History Smoking status: Never smoker Alcohol intake: never Substance use: current Substance use type: marijuana Lack of Transportation: No Lack of Food: Never True Current Housing: Decline to Answer Concerned About Future Housing: Decline to Answer Difficulty Paying Gas/Electric Bills: Decline to Answer Difficulty Paying for Meds: Decline to Answer Currently Unemployed: Decline to Answer Education: Decline to Answer Difficulty w/ Childcare or Family Care: Decline to Answer Living arrangements: with family Occupation/Education: occupation 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 There is no relevant family history pertinent to the patient complaint. Exam Const: General: cooperative, no acute distress, well developed, alert, tired appearing, uncomfortable and well nourished Nutritional Appearance: well nourished Orientation/consciousness: patient oriented x3 Limitations: no limitations HENMT: Head: normal to inspection Ears: hearing grossly normal bilaterally, external ears normal, TM's normal bilaterally, EAC's normal, mastoids normal and no periauricular adenopathy Mouth: Yes Normal oral and palatal mucosa present, Yes lip normal, Yes tongue normal and Yes moist mucous membranes Throat: posterior oropharynx normal, uvula midline and no uvular edema Eyes: General: appearance normal, both eyes and all related structures Alignment and Position: alignment normal Neck: Neck: normal visual inspection, full ROM, no lymphadenopathy and no meningeal signs Chest: Chest palpation & inspection: normal inspection of the chest Resp: Effort & Inspection: normal respiratory effort and able to speak in complete sentences Auscultation: clear to auscultation bilaterally, no crackles, no rales, no rhonchi and no wheezes Cardio: Rate: regular rate Skin: General skin exam: normal color and no rashes or lesions noted Neuro: General: patient oriented x3, gait normal, moves all extremities and no meningeal signs Cognition (Neuro): normal cognition Speech: normal speech Gait exam (Neuro): Normal gait present Extrem: General: normal to inspection, full ROM, capillary refill normal and normal gait Psych: Appearance: grossly normal and well kempt Mental Status: mental status grossly normal Speech and movement: Normal speech and movement present and Clear speech present Affect: normal affect Attitude: cooperative Course Course Level of Care: Express Care Visit Vital Signs Vital signs: Vital Signs Temperature 99.8 F H 09/04/24 09:47 Pulse Rate 133 H 09/04/24 09:47 Respiratory Rate 18 09/04/24 09:47 Blood Pressure 133/78 09/04/24 09:47 Pulse Oximetry 96 09/04/24 09:47 Oxygen Delivery Room Air 09/04/24 09:47 Temperature 99.8 F H 09/04/24 09:47 Pulse Rate 133 H 09/04/24 09:50 Respiratory Rate 18 09/04/24 09:50 Blood Pressure 133/78 09/04/24 09:47 Pulse Oximetry 96 09/04/24 09:50 Oxygen Delivery Room Air 09/04/24 09:47 Reviewed MDM - URI/Sore Throat MDM Narrative Medical decision making narrative: Patient sitting in exam room. Nontoxic, tachycardic, low-grade fever. Patient presents with one-day history of influenza like illness. Patient is flu A positive. Patient is appropriate for outpatient treatment of influenza. Discharge instructions reviewed with patient, as well as provided in writing per nursing staff. The instructions also include specific and strict return/GO TO THE ER as well as f/u information. All questions have been answered, and the patient deny any further questions with discharge and discharge plan. Some parts of this dictation were generated by voice recognition software and may contain typographical and/or grammatical inaccuracies. Differential Diagnosis Differential diagnosis: Likely upper respiratory infection, otitis media, sinusitis, viral infection, influenza and pharyngitis Lab Data Labs: Lab Results 09/04/24 Range/Units 10:02 POC Influenza A Ag Positive (Negative) POC Influenza B Ag Negative (Negative) POC SARS CoV-2 Ag Negative (Negative) Reviewed Critical Care Time Critical Care Time Critical Care Time: No Discharge Plan Discharge Clinical Impression: Influenza A Patient Disposition: Home, Self-Care Condition: Stable Instructions: Antibiotic Form, Influenza (ED) Additional Instructions: Your rapid COVID test were negative Your rapid flu test was positive for influenza A Your symptoms are due to a viral illness, which is not treated with antibiotics. Typically viral infections last 7-10 days, can linger for couple of weeks. It is very important to treat your symptoms. Drink plenty of water, Gatorade, Pedialyte, ice pops or Jell-O. -Alternate Tylenol and Motrin per package directions for fever or pain. You can alternate every 4 hours -Antihistamine medication such as Zyrtec/Claritin/Selena during the day can help improve symptoms. -doing daily nasal irrigations can help relieve pressure your sinuses. Things like a Neti pot or NeilMed saline irrigation -Use Flonase twice a day for 5 days then daily to help reduce the inflammation and dry up your sinuses. -You can also use Mucinex. Be sure to drink plenty of water with this medication at least 8 ounces with every dose and it is important to drink 8 to 10 glasses of water per day. Water is a natural decongestant -for your cough you can also take Delsym or cold medication of your choice -Eat and drink things that are easy to swallow, like tea or soup, or popsicles. -Oral rinses such as: Salt water gargles and/or may use topical anesthetic (eg. Chloraseptic spray) or lozenges to relieve dryness or throat pain). -Frequent hand washing or hand integration solution architect is one of the best ways to prevent spread of infection. -Using a vaporizer or humidifier at night will also help thin secretions and help with coughing up phlegm. -Follow up with primary care provider in 7-10 days if condition is not improving - For new or worsening symptoms go directly to the nearest ER Patient Language: Kyrgyz Prescriptions: No Action aripiprazole 2 mg tablet 2 mg PO DAILY Follow-up/Referrals: Danny,MD Brenna [Primary Care Provider] - Stand Alone Forms: Work/School Release IP Time of Disposition: 10:18
[2024-09-04 10:06] LABS: EDCOVIDSCREEN Negative (Negative); EDINFLUASCREEN Positive (Negative); EDINFLUBSCREEN Negative (Negative)
== END 2024-09-04 10:25 | disposition home or self-care (01) ==
PROVIDERS: Emergency Provider Nurse Practitioner; PCP Family Medicine
DX: J10.1 Influenza due to other identified influenza virus with other respiratory manifestations (principal); Z20.822 Contact with and (suspected) exposure to COVID-19; F12.90 Cannabis use, unspecified, uncomplicated
CPT/HCPCS: 87426; 87804; 99212; G0463

== ENCOUNTER 2025-01-29 21:01 | Emergency (ER) | payer MEDICAID, SELFPAY ==
--- OUTSIDE RECORDS SUMMARY | 2025-01-29 21:04 | XMS_ITS | Clinical Summary ---
Author Organization [facility] at the Medical Office Building Address [address] [place] [address] Care Team Providers Care Fitter/Welder Name Role Phone Brenna Delgado MD Primary Care Provi luciano Allergies No known active allergies Medications omeprazole (PriLOSEC) 20 mg capsuleIndicatio ns:Gastroesophag eal reflux disease without esophagitis Take 1 capsule (20 mg total) by mouth daily 30 capsule 5 11/18/2022 Active hydrOXYzine (ATARAX) 25 mg tablet 25 MG ORALLY THREE TIMES DAILY NEEDED ANXIETY 12/29/2022 Active ARIPiprazole (ABILIFY) 2 mg tablet Take 1 tablet (2 mg total) by mouth daily 30 tablet 01/28/2023 Active Active Problems Problem Noted Date Diagnosed Date Situational anxiety 11/18/2022 Assessment & Plan (11/18/2022 4:18 PM CDT): New issue: Recommend counseling. Increase Zoloft to 100 mg. Talked with patient about short-acting anxiety medication for possible panic attacks. Patient is currently nursing. Explained to patient the risk of medication and nursing. Patient is considering stopping nursing soon. She is going to try the increase in Zoloft for a few days. If not helping we can consider a low-dose Ativan that she could take as needed. And not nurse for at least 4-6 hours. Class 1 obesity due to exces s calories with serious comorbidity and body mass index (BMI) of 31.0 to 31.9 in adult 11/05/2022 Assessment & Plan (11/05/2022 7:48 AM CDT): BMI Follow-up includes: nutrition counseling. depression 06/27/2022 Assessment & Plan (11/18/2022 4:17 PM CDT): Uncontrolled. Increase Zoloft 100 mg. Follow-up with PCP in 2 weeks Fever 08/25/2019 Assessment & Plan (08/26/2019 1:35 PM SPECIAL EDUCATION PROFESSIONAL): Will check xray Consider labs Rest, stay hydrated Tylenol/motrin as needed Update me on friday Assessment & Plan (08/25/2019 5:38 AM SPECIAL EDUCATION PROFESSIONAL): Rapid flu test was negative for type A & B influenza. See plan of care for viral respiratory illness. Pityriasis rosea 08/12/2016 11/05/2022 Resolved Problems Problem Noted Date Diagnosed Date Resolved Date -induced hypertensi on in third trimester 11/05/2022 11/18/2022 Viral respiratory illness 08/25/2019 Assessment & Plan (08/26/2019 1:35 PM SPECIAL EDUCATION PROFESSIONAL): Discussed viral nature of illness, treat symptomatically Tylenol/ibuprofen as needed Increase fluids, rest and handwashing Warm saltwater gargles Hot water/hot tea with honey Saline rinses to nose at least twice daily Cool mist humidifier May use vicks vaporub on chest and feet as needed to help with cough Please call if symptoms change or worsen, to the ER for anything emergent Assessment & Plan (08/25/2019 5:39 AM SPECIAL EDUCATION PROFESSIONAL): Encouraged to continue to alternate, if needed, ibuprofen with Tylenol as directed. Instructed to increase clear liquids, rest, and vitamin C. Advised to ontinue to use cool mist vaporizer and can use Vicks VapoRub for cough. Recommended to keep appointment tomorrow with Dr. Delgado to discuss additional concerns. Immunizations Immunization Administration Dates Next Due DTP 02/03/2008 DTaP 04/03/2004,02/17/2003 DTaP / Hep B / IPV 07/04/2003,04/21/2003 Hep A, Adult 12/30/2013 Hep A, Ped Unspecified 10/03/2005 Hep A, Unspecified 12/19/2004 Hep B / HiB 02/17/2003 Hep B, Adolescent or Pediatric 2002 HiB 04/03/2004,07/04/2003,04/21/2003 IPV 02/03/2008,02/17/2003 Influenza, Unspecified 05/22/2022(Deferr ed: Patient decision),04/20/2022(Deferred: Patient Refused),04/20/2022(Deferred: Patient Refused),04/20/2022(Deferred: Patient Refused),04/20/2021(Deferred: Patient decision),04/20/2021(Deferred: Patient Refused),04/20/2021(Deferred: Patient Refused),04/20/2020(Deferred: Patient Refused),04/20/2020(Deferred: Patient Refused),08/17/2004 MMR 02/03/2008,12/30/2003 Meningococcal Conjugate (Menveo) 05/30/2020 Pfizer SARS-CoV-2 Monovalent Vaccination (12+ Yrs) PURPLE 10/01/2020 Pneumococcal Conjugate 7-Valent 07/04/2003,04/21,02/17/2003 Tdap 12/30/2013 Varicella 02/03/2008,12/30/2003 Medical History Medical History Date Comments -[facility]2022 Family History Relation Name Status Comments Father Alive Mother Alive Social History Tobacco Use Types Packs/Day Years Used Date Smoking Tobacco: Never Smokeless Tobacco: Never Tobacco Cessation:Counseling Given: Not Answered Alcohol Use Standard Drinks/Week Comments Never 0 (1 standard drink = 0.6 oz pur e alcohol) AUDIT-C Answer Date Recorded Q1: How often do you have a drink containing alc ohol? Monthly or less 01/03/2023 Q2: How many drinks containi ng alcohol do you have on a typical day when you are drinking? 1 or 2 01/03/2023 Q3: How often do you have si x or more drinks on one occasion? Never 01/03/2023 PHQ-2 Answer Date Recorded PHQ-2 Total Score (If total score is 3 or more points, staff should administer the PHQ-9) 5 01/03/2023 [place] Depression Scale Answer Date Recorded [place] Depression Scale Total 13 11/05/2022 The thought of harming myself has occurred to me . Never 11/05/2022 Personal Safety Answer Date Recorded Getting School Help Needed Not on file 01/29 Comments No Sex and Gender Information Value Date Recorded Sex Assigned at Not on file Legal Sex Female 8:46 PM SPECIAL EDUCATION PROFESSIONAL Gender Identity Not on file Sexual Orientation Not on file Occupation Industry Job Start Date Job End Date Student Not on file Not on file Not on file Obstetrics History Para Term AB IAB SAB Ectopic Multiple Livin g Live Births 0 0 0 0 0 0 0 0 0 0 0 Last Filed Vital Signs Vital Sign Reading Time Taken Comments Blood Pressure 137/89 01/23/2023 8:12 AM CDT Pulse 85 01/23/2023 8:12 AM CDT Temperature 37.1 C (98.8 F) 01/23/2023 8:12 AM CDT Respiratory Rate 18 01/23/2023 8:12 AM CDT Oxygen Saturation 97% 01/23/2023 8:12 AM CDT Inhaled Oxygen Concentration - - Weight 79.1 kg (174 lb 6.1 oz) 01/23/2023 8:12 A M CDT Height 160 cm (5' 3) 01/23/2023 8:12 AM CDT Body Mass Index 30.89 01/23/2023 8:12 AM CDT Plan of Treatment Health Maintenance Due Date Last Done Comments Cervical Cancer Screening 2002 Chlamydia and Gonorrhea (GC/CT) Screening 2002 Hepatitis C Screening 2002 HPV Vaccines (1 - 3-dose series) 2017 Meningococcal B Vaccine (1 of 2 - Standard) 2018 Regular Well Visit/Exam 18-64 2020 04/14/2019 DTaP/Tdap/Td Vaccine (7 - Td or Tdap) 12/31/2023 12/30/2013, 02/03/2008, 04/03/2004, Additional history exists Depression Screening 01/04/2024 01/03/2023, 01/03/2023, 11/18/2022, Additional history exists Covid-19 Vaccine (2 - 2023- season) 2024 10/01/2020 Influenza Vaccine (Season Ended) 2025 08/17/2004 Hepatitis B Screening Completed 07/04/2003 , 04/21/2003, 02/17/2003, Additional history exists Pneumococcal vaccine <65 Aged Out 003, 04/21/2003, 02/17/2003 No longer eligible based on patient's age to complete this topic Varicella Vaccines Completed 02/03/2008, 12/30/2003 Insurance [facility] Care Teams Fitter/Welder Relationship Specialty Start Date End Date Brenna Delgado MD [facility] [address] [place] [address] [phone] PCP - General Family Medicine 10/29/18
--- OUTSIDE RECORDS SUMMARY | 2025-01-29 21:04 | XMS_ITS | Clinical Summary ---
Author Organization [facility] Address Formerly [facility] [place] [address] Care Team Providers Care Rhit Name Role Phone KaterineBrenna Desmond BEARDEN Primary Care Provider None, Provider MD Unavailable Unavailable Allergies No known active allergies Medications ketorolac 10 MG tablet Take 1 tablet (10 mg total) by mouth every 6 (six) hours as needed for Pain (headache). 20 tablet 0 Active ondansetron (ZOFRAN-ODT) 4 MG disintegrating tablet Take 1 tablet (4 mg total) by mouth every 8 (eight) hours as needed for Nausea. 20 tablet 3 Active Active Problems No known active problems Social History Tobacco Use Types Packs/Day Years Used Date Smoking Tobacco: Never Passive Smoke Exposure: Never Smokeless Tobacco: Never Tobacco Cessation:Counseling Given: Not Answered Alcohol Use Standard Drinks/Week Comments Not Currently 0 (1 standard drink = 0.6 oz pur e alcohol) Comments No Sex and Gender Information Value Date Recorded Sex Assigned at Not on file Legal Sex Female 6:16 PM CDT Gender Identity Not on file Sexual Orientation Not on file Last Filed Vital Signs Vital Sign Reading Time Taken Comments Blood Pressure 134/85 05/28/2023 5:10 PM AQUACULTURE PROGRAM DIRECTOR Pulse 100 05/28/2023 5:10 PM AQUACULTURE PROGRAM DIRECTOR Temperature 37.3 C (99.1 F) 05/28/2023 5:10 PM AQUACULTURE PROGRAM DIRECTOR Respiratory Rate 22 05/28/2023 5:10 PM AQUACULTURE PROGRAM DIRECTOR Oxygen Saturation 100% 05/28/2023 5:10 PM AQUACULTURE PROGRAM DIRECTOR Inhaled Oxygen Concentration - - Weight 79.4 kg (175 lb) 05/28/2023 5:10 PM AQUACULTURE PROGRAM DIRECTOR Height 162.6 cm (5' 4) 05/28/2023 5:10 PM AQUACULTURE PROGRAM DIRECTOR Body Mass Index 30.04 05/28/2023 5:10 PM AQUACULTURE PROGRAM DIRECTOR Plan of Treatment Health Maintenance Due Date Last Done Comments Cervical Cancer Screening Pap Smear (Age 21 to 29) Every 3 Years 2002 Cervical Cancer Screening 2002 Annual Physical 2005 HPV Vaccines (1 - 3-dose series) 2017 Chlamydia Screening Females ages 16-24 2018 Meningococcal B Vaccine (1 of 2 - Standard) 2018 Hepatitis C 2020 DTaP, Tdap and Td Vaccines (7 - Td or Tdap) 12/31/2023 12/30/2013, 02/03/2008, 04/03/2004, Additional history exists COVID-19 Vaccine ( season) 2024 10/01/2020 Hepatitis B Vaccines Completed 07/04/2003, 04/21/2003, 02/17/2003, Additional history exists Pneumococcal Vaccine: Pediatrics (0 to 5 Years) and At-Risk Patients (6 to 49 Years) Aged Out 07/04/2003, 04/21/2003, 02/17/2003 No longer eligible based on patient's age to complete this topic Meningococcal Vaccine Completed 05/30/2020 RSV Immunizations Under 20 Months Aged Out No longer eligible based on patient's age to complete this topic Insurance MEDICAID Care Teams Rhit Relationship Specialty Start Date End Date Brenna Garcias CNM [address] [place] [address] PCP - General OBGYN 05/28/23 None, Provider, 05/28/23
--- OUTSIDE RECORDS SUMMARY | 2025-01-29 21:04 | XMS_ITS | Encounter Summary ---
Author Organization [facility] Care Team Providers Care Promotions Assistant Sales Marketing Name Role Phone Brenna Delgado MD Primary Care Provi luciano Encounter Details Date Type Department Care Team (Latest Contact Info) Description 11/11/2017 Orders Only [facility] CLINCONV ProviderLevy MD [address] [place] [id number] Social History Tobacco Use Types Packs/Day Years Used Date Smoking Tobacco: Never Assessed Comments Unknown Sex and Gender Information Value Date Recorded Sex Assigned at Not on file Legal Sex Female 8:46 PM HEADMASTER/MISTRESS Gender Identity Not on file Sexual Orientation Not on file documented as of this encounter Plan of Treatment Not on file documented as of this encounter Procedures Procedure Name Priority Date/Time Associated Diagnosis Comments SCAN - LABS 11/11/2017 12:00 AM CDT documented in this encounter Results * SCAN - LABS (11/11/2017 12:00 AM CDT) Narrative 11/11/2017 12:00 AM CDT Ordered by an unspecified provider. us Historical Provider Final Res ult documented in this encounter Visit Diagnoses Not on filedocumented in this encounter Care Teams Promotions Assistant Sales Marketing Relationship Specialty Start Date End Date Brenna Delgado MD [address] [place] [address] PCP - General Family Medicine 10/29/18 documented as of this encounter
--- OUTSIDE RECORDS SUMMARY | 2025-01-29 21:04 | XMS_ITS | Referral Summary ---
Author Organization [facility] at the Medical Office Building Address [address] [place] [address] Care Team Providers Care Deep Fat Fry Cook Name Role Phone Brenna Delgado MD Primary [...] 08/25/2019 Assessment & Plan (08/26/2019 1:35 PM SEARCH COORDINATOR): Will check xray Consider labs Rest, stay hydrated Tylenol/motrin as needed Update me on friday Assessment & Plan (08/25/2019 5:38 AM SEARCH COORDINATOR): Rapid flu test was negative for type A & B influenza. See plan of care for viral respiratory illness. Pityriasis rosea 08/12/2016 11/05/2022 Resolved Problems Problem Noted Date Diagnosed Date Resolved Date -induced hypertensi on in third trimester 11/05/2022 11/18/2022 Viral respiratory illness 08/25/2019 Assessment & Plan (08/26/2019 1:35 PM SEARCH COORDINATOR): Discussed viral nature of illness, treat symptomatically [...] emergent Assessment & Plan (08/25/2019 5:39 AM SEARCH COORDINATOR): Encouraged to continue to alternate, if needed, [...] Conjugate 7-Valent 07/04/2003,04/21,02/17/2003 Tdap 12/30/2013 Varicella 02/03/2008,12/30/2003 Social History Tobacco Use Types Packs/Day Years [...] staff should administer the PHQ-9) 5 01/03/2023 [place] Depression Scale Answer Date Recorded [place] Depression Scale Total 13 11/05/2022 The thought of harming myself has occurred to me . Never 11/05/2022 Personal Safety Answer Date Recorded Getting School Help Needed Not on file 01/29 Comments No Sex and Gender Information Value Date Recorded Sex Assigned at Not on file Legal Sex Female 8:46 PM SEARCH COORDINATOR Gender Identity Not on file Sexual Orientation Not on file Occupation Industry Job Start Date Job End Date Student Not on file Not on file Not on file Last Filed Vital Signs [...] 01/23/2023 8:12 AM CDT Plan of Treatment Not on file Insurance [facility] Care Teams Deep Fat Fry Cook Relationship Specialty Start Date End Date Brenna Delgado MD [address] [place] [address] PCP - General Family Medicine 10/29/18
--- OUTSIDE RECORDS SUMMARY | 2025-01-29 21:04 | XMS_ITS | Patient Health Record ---
Author Organization [facility] Address [address] [place] [address] Care Team Providers Care Marketing Sales Supervisor Name Role Phone Sin Melgar Primary Care Provider Allergies No Known Allergies Reason For Referral No Information Medications Medication SIG (Take, Route, Fr equency, Duration) Notes Start Date End Date Status hydrOXYzine HCl 50 MG 1 tablet Orally tw ice a day as needed; Duration: 30 days Active lamoTRIgine 25 MG 1 tablet x 14 days, then 2 tablets for 50 mg x 14 days Orally as directed; Duration: 30 days 02/10/2024 Active lamoTRIgine 100 MG after finishing 50 m g dosing, take 1 tablet Orally Once a day; Duration: 30 days 02/10/2024 Active Abilify 2 MG 1 tablet Orally daily Active Social History Tobacco Use: Social History Observation Description Date Details (start date - stop date) Never Smoker NA - NA Dont use, Tobacco Use/Smoking Question Answer Notes Are you a nonsmoker Problems Problem Type SNOMED Code ICD Code Onset Dates Problem Status W/U Status Risk Notes Problem Generalized anxiety disorder (F41.1) 04/17/2023 Active confirmed Problem Mood disorder (55908229) Mood disorder (F39) 04/17/2023 Active confirmed Encounters Encounter Location Date Provider Diagnosis [facility] [address] [place] [address] 02/10/2024 Sin Melgar Generalized anxiety disorder F41.1 and Mood disorder F39 Assessments Encounter Date Diagnosis (ICD Code) Assessment Notes Treatment Notes Treatment Clinical Notes Section Notes 02/10/2024 Generalized anxiety disorder (ICD-10 - F41.1) Today's visit: Patient is a 23-year-old female being seen for a psychiatric follow-up appt over phone and is located in [place]. Previously seen on 04/17/2023 for an evaluation and during this appt was increased on Abilify to 5 mg and started on hydroxyzine 25 mg as needed TID with a referral to therapy Previous PHQ-9 score of 15, today is 20. Pt reports she continues to breastfeed once nightly. She indicates mood instability that includes depression, irritability, feeling angry and more agitated; after discussion she indicates she feels her symptoms are more mood related than strictly depression or anxiety sx. She is agreeable to trialing Lamictal for mood stabilization and is aware of the side effects and need to take every day. Also discussed refilling hydroxyzine and taking as needed for anxiety or to help her sleep. Patient was sent patient education via HIPPA compliant text regarding these medications as well as information about their potential effects on . She is encouraged to follow up in one month. No acute safety concerns the time of this appt, he is agreeable to treatment plan and was provided an opportunity to ask questions. Lamotrigine: Take as prescribed. Reviewed purpose (mood stability, reduce depression, and help with irritability), benefits, and risks - including sedation, nausea, rash - benign or serious. A serious rash could cause shedding of all skin and even become fatal. Stop taking medication immediately if a rash occurs and seek emergency care. Notify our office as well. If you ever miss 4 or more consecutive days of taking this medication, please let the office know. The prescriber may need to restart this medication at 25 mg daily and titrate up as tolerated. Hydroxyzine. Take as prescribed. Reviewed purpose (reduce anxiety and/or promote sleep), benefits, and risks - including sedation and dry mouth. May self-administer medications or be administered own oral medications per [facility] protocols. Provided informed consent with understanding of side effects, adverse effects, risks and benefits as well as alternative treatments as previously discussed and with the above recommended medications & other aspects of the treatment program. Agrees to return sooner if symptoms worsen or suicidal or homicidal ideations occur. 02/10/2024 Mood disorder (ICD-10 - F39) 02/10/2024 Other Lamotrigine Ora l Tablet (LAMOTRIGINE - ORAL) material was printed, Hydroxyzine Oral Tablet (HYDROXYZINE HYDROCHLORIDE - ORAL) material was printed Plan Of Treatment No Information Insurance Providers Payer Name Payer Address Payer Phone Subscriber Number Group Number Insured Name Patient Relationship to Insured Coverage Start Date Coverage End Date [facility] Attn Claims Department [address] [place] [address] [id number] Amy Garcia Self - patient is the insured 3 3 [facility] Attn Claims Department [address] [place] [address] [id number] Amy Garcia Self - patient is the insured 3 3 Medical (General) History Hospitalization History Reason Date(Month/Year) [facility] - 1 week for [facility] 2017
[2025-01-29 21:08] VITALS: BP 129/79; PULSE 115; RESP 25; TEMP 37.4; O2SAT 99
[2025-01-29 21:16] LABS: BEDSIDEPREGUCG Positive (Negative)
[2025-01-29] MEDS: SODIUM CHLORIDE 0.9% IV 1,000 ML 999 ML IV CONT ×2 (21:26→22:12)
[2025-01-29] MEDS: ONDANSETRON INJ 4 MG/2 ML VIAL IV PUSH (21:26)
[2025-01-29 21:32] LABS: Hematocrit 33.3 % (37.0-47.0); Hemoglobin 11.4 g/dL (12.0-15.0); Immature Granulocyte Percent A 0.4 % (0-0.5); Lymphocytes Absolute Auto 1.98 K/mm3 (0.9-3.2); Mean Corpuscular HGB Conc 34.2 g/dl (32-36); Mean Corpuscular Hemoglobin 30.3 pg (26-34); Mean Corpuscular Volume 88.6 fl (80-100); Nucleated Red Blood Cells Absolute Auto 0.000 K/mm3 (0.0-0.012); Nucleated Red Blood Cells Perc 0.0 % (0.0-0.2); Platelet Count Result 285 k/mm3 (150-375); Red Blood Count 3.76 M/mm3 (4.2-5.4); White Blood Count 13.8 K/mm3 (4.5-10.0)
--- OUTSIDE RECORDS SUMMARY | 2025-01-29 21:33 | XMS_ITS | Referral Summary ---
Author Organization [facility] Address [address] [place] [address] Care Team Providers Care Clamp Jig Assembler Name Role Phone Brenna Delgado MD Primary [...] 08/25/2019 Assessment & Plan (08/26/2019 1:35 PM ANALYTICS MANAGER): Will check xray Consider labs Rest, stay hydrated Tylenol/motrin as needed Update me on friday Assessment & Plan (08/25/2019 5:38 AM ANALYTICS MANAGER): Rapid flu test was negative for type A & B influenza. See plan of care for viral respiratory illness. Pityriasis rosea 08/12/2016 11/05/2022 Resolved Problems Problem Noted Date Diagnosed Date Resolved Date -induced hypertensi on in third trimester 11/05/2022 11/18/2022 Viral respiratory illness 08/25/2019 Assessment & Plan (08/26/2019 1:35 PM ANALYTICS MANAGER): Discussed viral nature of illness, treat symptomatically [...] emergent Assessment & Plan (08/25/2019 5:39 AM ANALYTICS MANAGER): Encouraged to continue to alternate, if needed, [...] staff should administer the PHQ-9) 5 01/03/2023 [place] Depression Scale Answer Date Recorded [place] Depression Scale Total 13 11/05/2022 The thought of harming myself has occurred to me . Never 11/05/2022 Personal Safety Answer Date Recorded Getting School Help Needed Not on file 01/29 Comments No Sex and Gender Information Value Date Recorded Sex Assigned at Not on file Legal Sex Female 8:46 PM ANALYTICS MANAGER Gender Identity Not on file Sexual Orientation [...] Plan of Treatment Not on file Insurance [facility] Care Teams Clamp Jig Assembler Relationship Specialty Start Date End Date Brenna Delgado MD [address] [place] [address] PCP - General Family Medicine 10/29/18
--- OUTSIDE RECORDS SUMMARY | 2025-01-29 21:33 | XMS_ITS | Clinical Summary ---
Author Organization [facility] Address [address] [place] [address] Care Team Providers Care Relay Motorman Name Role Phone Brenna Delgado MD Primary [...] 08/25/2019 Assessment & Plan (08/26/2019 1:35 PM PHOTONICS ENGINEER): Will check xray Consider labs Rest, stay hydrated Tylenol/motrin as needed Update me on friday Assessment & Plan (08/25/2019 5:38 AM PHOTONICS ENGINEER): Rapid flu test was negative for type A & B influenza. See plan of care for viral respiratory illness. Pityriasis rosea 08/12/2016 11/05/2022 Resolved Problems Problem Noted Date Diagnosed Date Resolved Date -induced hypertensi on in third trimester 11/05/2022 11/18/2022 Viral respiratory illness 08/25/2019 Assessment & Plan (08/26/2019 1:35 PM PHOTONICS ENGINEER): Discussed viral nature of illness, treat symptomatically [...] emergent Assessment & Plan (08/25/2019 5:39 AM PHOTONICS ENGINEER): Encouraged to continue to alternate, if needed, [...] History Date Comments -[facility] 11/05/2022 Family History Relation [...] staff should administer the PHQ-9) 5 01/03/2023 [place] Depression Scale Answer Date Recorded [place] Depression Scale Total 13 11/05/2022 The thought of harming myself has occurred to me . Never 11/05/2022 Personal Safety Answer Date Recorded Getting School Help Needed Not on file 01/29 Comments No Sex and Gender Information Value Date Recorded Sex Assigned at Not on file Legal Sex Female 8:46 PM PHOTONICS ENGINEER Gender Identity Not on file Sexual Orientation [...] topic Varicella Vaccines Completed 02/03/2008, 12/30/2003 Insurance [facility] Care Teams Relay Motorman Relationship Specialty Start Date End Date Brenna Delgado MD [facility] [address] [place] [address] [phone] PCP - General Family Medicine 10/29/18
--- OUTSIDE RECORDS SUMMARY | 2025-01-29 21:33 | XMS_ITS | Clinical Summary ---
Author Organization [facility] Address [facility] [place] [address] Care Team Providers Care Division Operations Specialist Name Role Phone KaterineBrenna Desmond BEARDEN Primary [...] Comments Blood Pressure 134/85 05/28/2023 5:10 PM ORAL HEALTH THERAPIST Pulse 100 05/28/2023 5:10 PM ORAL HEALTH THERAPIST Temperature 37.3 C (99.1 F) 05/28/2023 5:10 PM ORAL HEALTH THERAPIST Respiratory Rate 22 05/28/2023 5:10 PM ORAL HEALTH THERAPIST Oxygen Saturation 100% 05/28/2023 5:10 PM ORAL HEALTH THERAPIST Inhaled Oxygen Concentration - - Weight 79.4 kg (175 lb) 05/28/2023 5:10 PM ORAL HEALTH THERAPIST Height 162.6 cm (5' 4) 05/28/2023 5:10 PM ORAL HEALTH THERAPIST Body Mass Index 30.04 05/28/2023 5:10 PM ORAL HEALTH THERAPIST Plan of Treatment Health Maintenance Due Date [...] complete this topic Insurance MEDICAID Care Teams Division Operations Specialist Relationship Specialty Start Date End Date Brenna Garcias CNM [address] [place] [address] PCP - General OBGYN 05/28/23 None, Provider, 05/28/23
--- OUTSIDE RECORDS SUMMARY | 2025-01-29 21:33 | XMS_ITS | Encounter Summary ---
Author Organization [facility] Care Team Providers Care Photo Checker And Assembler Name Role Phone Brenna Delgado MD Primary Care Provi luciano Encounter Details Date Type Department Care Team (Latest Contact Info) Description 11/11/2017 Orders Only [facility] ProviderLevy MD [address] [place] [id number] Social History Tobacco Use Types Packs/Day Years Used Date Smoking Tobacco: Never Assessed Comments Unknown Sex and Gender Information Value Date Recorded Sex Assigned at Not on file Legal Sex Female 8:46 PM SENIOR SYSTEM OPERATOR Gender Identity Not on file Sexual Orientation [...] on filedocumented in this encounter Care Teams Photo Checker And Assembler Relationship Specialty Start Date End Date Brenna Delgado MD [address] [place] [address] PCP - General Family Medicine 10/29/18 documented as of this encounter
[2025-01-29 21:47] LABS: Add Urine Microscopic? YES; Appearance Urine Clear (Clear); Glucose Urine UA Negative (Negative); Leukocyte Esterase Ur Negative LEU/UL (Negative); Need Manual Microscopic Reviewed; Nitrate Urine Negative (Negative); Specific Grav Ur 1.025 (1.001-1.035)
[2025-01-29 21:57] LABS: Alanine Aminotransferase 26 U/L (6-35); Albumin Level 4.3 g/dL (3.5-5.1); Alkaline Phosphatase 62 U/L (38-126); Anion Gap 11 mmol/L (4-12); Aspartate Amino Transferase 29 U/L (14-36); Bilirubin,Total 0.3 mg/dL (0.2-1.3); Blood Urea Nitrogen 8 mg/dL (7-17); Calcium 9.7 mg/dL (8.4-10.2); Carbon Dioxide 20 mmol/L (22-30); Chloride 105 mmol/L (98-107); Estimated CRCL calculation 119 ml/min; Estimated Glomerular Filt Rate > 60; Glucose 98 mg/dL (65-110); Lipase 78 U/L (23-300); Potassium 3.2 mmol/L (3.4-5.0); Sodium 136 mmol/L (137-145); Total Protein 8.0 g/dL (6.3-8.2)
[2025-01-29 21:58] LABS: Magnesium 1.6 mg/dL (1.6-2.3)
[2025-01-29] MEDS: POTASSIUM CHLORIDE 20 MEQ PACKET (FOR LIQUID) 40 MEQ PO (22:11)
--- NOTE | 2025-01-29 22:30 | ED.ABDPAIN ---
HPI - Abdominal Pain General Chief Complaint: Abdominal Pain Stated Complaint: RUQ abd pain Time Seen by Provider: 01/29/25 21:17 History of Present Illness HPI narrative: Patient is free 4-year-old female who presents the emergency department this evening complaining of right upper quadrant abdominal pain. Patient states that she is approximately 11 weeks . Admits that she has had an ultrasound for this already revealing an intrauterine . She does not have a current OBGYN but has an appointment on Friday in 2 days with an Ob through [facility]. Patient states that she has been nauseous and has been vomiting at home and does not have any nausea pills at home. Denies any lower abdominal or pelvic pain, any vaginal bleeding or spotting. No additional symptoms or concerns at this time. Related Data Home Medications ?Medication ?Instructions ?Recorded ?Confirmed ?Last Taken ?Type aripiprazole 2 mg tablet 2 mg PO DAILY 05/29/23 06/04/23 04/25/24 History Allergies Allergy/AdvReac Type Severity Reaction Status Date / Time No Known Allergies Allergy Verified 01/29/25 21:13 Review of Systems Review of Systems: All systems are reviewed and are negative unless stated otherwise in the HPI. [facility] Past Medical History Medical History Anxiety H/O pre-eclampsia Surgical History Surgical History History of incision and drainage 04/28/23 L bartholin's gland abscess I&D H/O section Social History Social History Smoking status: Never smoker Alcohol intake: never Substance use: current Substance use type: marijuana Lack of Transportation: No Lack of Food: Never True Current Housing: Decline to Answer Concerned About Future Housing: Decline to Answer Difficulty Paying Gas/Electric Bills: Decline to Answer Difficulty Paying for Meds: Decline to Answer Currently Unemployed: Decline to Answer Education: Decline to Answer Difficulty w/ Childcare or Family Care: Decline to Answer Living arrangements: with family Occupation/Education: occupation 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 HEENT: PERRL, no rhinorrhea, no post nasal drip, oropharynx clear. Neck: Trachea midline, no JVD, no lymphadenopathy. Cardiovascular: Regular rate and rhythm, no murmurs, rubs or gallops, no peripheral edema. Respiratory: Clear to auscultation bilaterally, no tachypnea, no wheezing, no rhonchi, no rubs, no respiratory distress. Abdomen: Soft, nontender, nondistended, no rebound, no guarding, no peritoneal signs. Musculoskeletal: No joint swelling or deformity, normal muscle tone. Skin: No rashes or petechia, no signs of infection. Psychiatric: Alert and oriented, normal behavior and judgment for situation. Neurological: Alert and oriented to person, place, and time. Follows all commands. No focal deficits, speech is clear and fluent. Course Vital Signs Vital signs: Vital Signs Temperature 99.4 F 01/29/25 21:08 Pulse Rate 115 H 01/29/25 21:08 Respiratory Rate 25 H 01/29/25 21:08 Blood Pressure 129/79 01/29/25 21:08 Pulse Oximetry 99 01/29/25 21:08 Oxygen Delivery Room Air 01/29/25 21:08 Temperature 99.4 F 01/29/25 21:08 Pulse Rate 115 H 01/29/25 21:08 Respiratory Rate 25 H 01/29/25 21:08 Blood Pressure 129/79 01/29/25 21:08 Pulse Oximetry 99 01/29/25 21:08 Oxygen Delivery Room Air 01/29/25 21:08 MDM - Abdominal Pain MDM Narrative Medical decision making narrative: The patient was evaluated by myself in the emergency department. History is obtained from patient who is an independent historian and physical exam was performed. External medical records were reviewed at this time. IV was established and pertinent tests were ordered. Patient was administered 1 L IV fluid bolus with normal saline and 4 mg of Zofran. Laboratory results obtained revealing a potassium of 3.2 otherwise unremarkable. Patient was administered 40 mEq of oral potassium at this time. Urinalysis unremarkable. Patient currently does not have any abdominal pain. States that it was mainly an upset stomach secondary to hyperemesis. Patient was informed that during we do not order CT scans due to harm to the fetus. She was instructed that if she continues to have pain she needs to let her OBGYN no for her upcoming appointment in 2 days so they can order ultrasound and patient is in agreement. Differential diagnosis considerations include dehydration, electrolyte derangements, hyperemesis gravidarum, gastritis, peptic ulcer disease. Comorbidities impacting this visit include current first-trimester . I have evaluated and discussed social determinants of health with the patient that could potentially impact subsequent diagnosis and treatment plans. On repeat assessment of the patient, reevaluation revealed that the patient is doing well and is in no acute distress. Patient symptoms have improved since she arrived to our emergency department. Repeat vital signs were all reviewed and noted to be stable. Differential diagnosis and treatment plan were discussed with the patient at bedside. Patient agrees with discussion and after shared medical decision making agrees with discharge. All questions were answered to the patient's satisfaction. Patient will follow up with her OBGYN in 2 days. She was provided with a script for Zofran to use as needed for nausea. Patient was provided with strict return precautions and instructed to return to the emergency department if any new or worsening symptoms develop. The patient was discharged in stable condition. Lab Data 01/29/25 21:19 01/29/25 21:19 Labs: Lab Results 01/29/25 01/29/25 Range/Units 21:13 21:19 WBC 13.8 H (4.5-10.0) K/mm3 RBC 3.76 L (4.2-5.4) M/mm3 Hgb 11.4 L (12.0-15.0) g/dL Hct 33.3 L (37.0-47.0) % MCV 88.6 (80-100) fl MCH 30.3 (26-34) pg MCHC 34.2 (32-36) g/dl RDW 12.1 (11.5-14.5) % Plt Count 285 (150-375) k/mm3 MPV 10.9 H (7.4-10.4) fl Immature Gran % (Auto) 0.4 (0-0.5) % Neut % (Auto) 80.2 H (45.5-73.1) % Lymph % (Auto) 14.4 L (18.3-44.2) % Morris % (Auto) 4.4 (2.6-8.5) % Eos % (Auto) 0.4 (0-4.4) % Baso % (Auto) 0.2 (0.2-1.2) % Lymph # (Auto) 1.98 (0.9-3.2) K/mm3 Morris # (Auto) 0.6 (0.1-0.6) K/mm3 Eos # (Auto) 0.1 (0-0.3) K/mm3 Baso # (Auto) 0.0 (0.0-0.1) K/mm3 Abs Immat Gran (auto) 0.06 H (0.00-0.031) K/mm3 Absolute Neuts (auto) 11.1 H (1.3-6.7) K/mm3 Absolute Nucleated RBC 0.000 (0.0-0.012) K/mm3 Nucleated RBC % 0.0 (0.0-0.2) % Sodium 136 L (137-145) mmol/L Potassium 3.2 L (3.4-5.0) mmol/L Chloride 105 (98-107) mmol/L Carbon Dioxide 20 L (22-30) mmol/L Anion Gap 11 (4-12) mmol/L BUN 8 (7-17) mg/dL Creatinine 0.70 (0.7-1.0) mg/dL Estim Creat Clear Calc 119 ml/min Estimated GFR > 60 (59 - ) Glucose 98 (65-110) mg/dL Calcium 9.7 (8.4-10.2) mg/dL Magnesium 1.6 (1.6-2.3) mg/dL Total Bilirubin 0.3 (0.2-1.3) mg/dL AST 29 (14-36) U/L ALT 26 (6-35) U/L Alkaline Phosphatase 62 (38-126) U/L Total Protein 8.0 (6.3-8.2) g/dL Albumin 4.3 (3.5-5.1) g/dL Lipase 78 (23-300) U/L Beta HCG, Quant 197987.00 mIU/ML Urine Color Yellow (Yellow) Urine Appearance Clear (Clear) Urine pH 6.0 (5.0-9.0) Ur Specific [place] 1.025 (1.001-1.035) Urine Protein 2+ H (Negative) mg/dL Urine Glucose (UA) Negative (Negative) mg/dL Urine Ketones Trace H (Negative) mg/dL Ur Blood (Man) Negative (Negative) Urine Nitrate Negative (Negative) Urine Bilirubin Negative (Negative) Urine Urobilinogen 1.0 (<2.0) mg/dL Add Ur Microanalysis Reviewed Leukocyte Esterase Rfl Negative (Negative) CLAU/UL Urine RBC 0-2 (0-2) /hpf Urine WBC 0-5 (0-3) /hpf Ur Squamous Epith Cells Few (Few) /hpf Urine Bacteria Rare /hpf Urine Casts 11-20 POC Urine HCG, Qual Positive (Negative) Discharge Plan Discharge Clinical Impression: Hyperemesis gravidarum Patient Disposition: Home Condition: Improved Instructions: Antibiotic Form, Hyperemesis Gravidarum (ED) Additional Instructions: Please follow-up with your OBGYN within the next 2-3 days. Return to ED if any new or worsening symptoms develop. Take the prescribed Zofran as needed for nausea/vomiting. Patient Language: Vietnamese Prescriptions: New ondansetron 4 mg tablet,disintegrating 4 mg PO Q8H PRN (Reason: nausea and vomiting) Qty: 14 0RF No Action aripiprazole 2 mg tablet 2 mg PO DAILY Follow-up/Referrals: Danny,MD Brenna [Primary Care Provider] - 3 Days Time of Disposition: 22:36
[2025-01-29 22:39] LABS: Beta HCG Quantitative 101430.00 mIU/ML
[2025-01-29 23:02] VITALS: BP 127/61; PULSE 100; RESP 14; O2SAT 99
== END 2025-01-29 23:18 | disposition home or self-care (01) ==
PROVIDERS: Emergency Provider Emergency Medicine; PCP Family Medicine
DX: O21.0 Mild hyperemesis gravidarum (principal); O99.341 Other mental disorders complicating pregnancy, first trimester; F41.9 Anxiety disorder, unspecified; Z3A.11 11 weeks gestation of pregnancy; Z79.899 Other long term (current) drug therapy
CPT/HCPCS: 36415; 80053; 81001; 81025; 83690; 83735; 84702; 85025; 96361; 96374; 99284; A9270; J2405; J7030

== ENCOUNTER 2025-03-06 12:03 | Emergency (ER) | payer MEDICAID, SELFPAY ==
[2025-03-06 12:09] VITALS: BP 134/75; PULSE 101; RESP 18; TEMP 36.3; O2SAT 100
--- NOTE | 2025-03-06 12:11 | ED_ITS ---
HPI - General Adult General Chief complaint: Upper Respiratory Infection Stated complaint: Sore Throat/Headache Time Seen by Provider: 03/06/25 12:11 Source: patient Mode of arrival: ambulatory Limitations: no limitations History of Present Illness HPI narrative: 24-year-old female patient presents to the [facility] with complaints of sore throat, headache and cold symptoms for the past 2-3 days. Patient states only has had a fever as high as 99. Patient states she has been fatigued and has had some nausea but states she is about 15 weeks . Patient denies any active vomiting or diarrhea. Denies chest pain or shortness of breath. Patient states she is only taking Tylenol for her symptoms. Related Data Home Medications ?Medication ?Instructions ?Recorded ?Confirmed ?Last Taken ?Type No Home Medications 03/06/25 03/06/25 Unknown History Allergies Allergy/AdvReac Type Severity Reaction Status Date / Time No Known Allergies Allergy Verified 03/06/25 12:24 Review of Systems Review of Systems: CONSTITUTIONAL: Positive subjective low-grade fever, denies chills, or sweats. Positive fatigue EYES: Denies visual changes, redness, or discharge. ENT: Positive rhinorrhea, congestion, sore throat, denies otalgia. CARDIOVASCULAR: Denies chest pain, palpitations, or edema. RESPIRATORY: Positive dry cough denies dyspnea. GASTROINTESTINAL: Denies abdominal pain, nausea, vomiting, or diarrhea. GENITOURINARY: Denies dysuria or hematuria. SKIN: Denies rash or itching. MUSCULOSKELETAL: Denies back pain, joint pain, or myalgia. NEUROLOGIC: Positive headache, denies numbness, or weakness. PSYCHIATRIC: Denies anxiety or depression. [facility] Past Medical History Medical History Anxiety H/O pre-eclampsia Surgical History Surgical History History of incision and drainage 04/28/23 L bartholin's gland abscess I&D H/O section Social History Social History Smoking status: Never smoker Alcohol intake: never Substance use: current Substance use type: marijuana Lack of Transportation: No Lack of Food: Never True Current Housing: Decline to Answer Concerned About Future Housing: Decline to Answer Difficulty Paying Gas/Electric Bills: Decline to Answer Difficulty Paying for Meds: Decline to Answer Currently Unemployed: Decline to Answer Education: Decline to Answer Difficulty w/ Childcare or Family Care: Decline to Answer Living arrangements: with family Occupation/Education: occupation Additional occupation/education comments: [employer] (works with special needs patients) Spiritual care concerns: No Comments At the time of my signature I agree with nursing past medical history, surgical, social, and family history. There is no relevant family history pertinent to the presenting complaint. Exam Narrative: GENERAL: Well-appearing, well-nourished, and in no acute distress. HEAD: Normocephalic, atraumatic. EYES: PERRLA and EOMI. ENT: Nares with erythema edema noted bilaterally, no rhinorrhea or epistaxis. Mucous membranes moist. Posterior pharynx with no erythema, tonsillar enlargement, exudates or lesions present. Bilateral TMs are clear no erythema o r foreign bodies the canal. NECK: Supple. No lymphadenopathy CHEST: Clear to auscultation. No respiratory distress. HEART: Regular rate and rhythm. No murmur heard. Normal peripheral pulses. ABDOMEN: Soft, nontender, nondistended, normal active bowel sounds. EXTREMITIES: Normal range of motion. No edema. SKIN: Warm, dry, no rash. NEURO: No focal deficits. Alert and oriented x3. Course Course Level of Care: Express Care Visit Vital Signs Vital signs: Vital Signs Temperature 36.3 C L 03/06/25 12:09 Pulse Rate 101 H 03/06/25 12:09 Respiratory Rate 18 03/06/25 12:09 Blood Pressure 134/75 03/06/25 12:09 Pulse Oximetry 100 03/06/25 12:09 Oxygen Delivery Room Air 03/06/25 12:09 Temperature 36.3 C L 03/06/25 12:09 Pulse Rate 101 H 03/06/25 12:09 Respiratory Rate 18 03/06/25 12:09 Blood Pressure 134/75 03/06/25 12:09 Pulse Oximetry 100 03/06/25 12:09 Oxygen Delivery Room Air 03/06/25 12:09 Vital signs reviewed. The patient has been informed that they may have pre-hypertension or Hypertension based on a BP reading in the department. I recommend that the patient call the primary care provider listed on their discharge instructions or a physician of their choice this week to arrange follow up for further evaluation of possible pre-hypertension or Hypertension Medical Decision Making MDM Narrative Medical decision making narrative: Plan care patient is to swab her day for strep, influenza and COVID. I will reassess patient once this has resulted. We will provide her a list of [id number] medications that she can use for her symptoms while she has viral infection. Differential Diagnosis Differential Diagnosis: Differential diagnosis: Allergic rhinitis, chronic sinusitis, tonsillitis, acute sinusitis, infectious mononucleosis, seasonal influenza, pertussis, diphtheria, meningococcal disease, viral syndrome, viral bronchitis, RSV, COVID- 19 Vital Signs Vital Signs: Vital Signs Temperature 36.3 C L 03/06/25 12:09 Pulse Rate 101 H 03/06/25 12:09 Respiratory Rate 18 03/06/25 12:09 Blood Pressure 134/75 03/06/25 12:09 Pulse Oximetry 100 03/06/25 12:09 Oxygen Delivery Room Air 03/06/25 12:09 Temperature 36.3 C L 03/06/25 12:09 Pulse Rate 101 H 03/06/25 12:09 Respiratory Rate 18 03/06/25 12:09 Blood Pressure 134/75 03/06/25 12:09 Pulse Oximetry 100 03/06/25 12:09 Oxygen Delivery Room Air 03/06/25 12:09 Lab Data Labs: Lab Results 03/06/25 03/06/25 Range/Units 12:25 12:37 POC Influenza A Ag Negative (Negative) POC Influenza B Ag Negative (Negative) POC SARS CoV-2 Ag Negative (Negative) POC Grp A Strep Screen Negative (Negative) Critical Care Time Critical Care Time Critical Care Time: No Discharge Plan Discharge Clinical Impression: Viral URI Patient Disposition: Home Condition: Stable Instructions: Antibiotic Form, Viral Syndrome (ED) Additional Instructions: Viral illness may last between 7-12days; antibiotic is NOT recommended at this time. Recommend antihistamine such as Benadryl at night time and Claritin/Zyrtec/Selena during the day Please refer to list a safe [id number] medications that was provided to you at your visit today. Also, recommend symptomatic treatment includes: rest, fluids, and increase humidity of the air at home. Recommend Acetaminophen or nonsteroidal anti-inflammatory agents (NSAIDs) as directed in the bottle to reduce fever and/pain/headache. Avoid smoking/second-hand smoke. Limit visits to areas with large crowds. Please schedule a follow-up visit with your personal physician for further evaluation and treatment within 3-5days. Including recheck and discussion of your blood pressure. If your symptoms persist, change or worsen significantly before you can contact your personal physician then please, without delay, go to the emergency department for further evaluation. Patient Language: Romansh Prescriptions: No Action No Home Medications Follow-up/Referrals: Danny,MD Brenna [Primary Care Provider] - Time of Disposition: 12:41
[2025-03-06 12:27] LABS: EDSTREPNEGPOS1 Negative (Negative)
[2025-03-06 12:39] LABS: EDCOVIDSCREEN Negative (Negative); EDINFLUASCREEN Negative (Negative); EDINFLUBSCREEN Negative (Negative)
== END 2025-03-06 12:47 | disposition home or self-care (01) ==
PROVIDERS: Emergency Provider Nurse Practitioner Family; PCP Family Medicine
DX: O99.512 Diseases of the respiratory system complicating pregnancy, second trimester (principal); J06.9 Acute upper respiratory infection, unspecified; Z3A.15 15 weeks gestation of pregnancy; Z20.822 Contact with and (suspected) exposure to COVID-19; O99.322 Drug use complicating pregnancy, second trimester; F12.90 Cannabis use, unspecified, uncomplicated
CPT/HCPCS: 87081; 87426; 87804; 87880; 99213; G0463